=== PATIENT | male | born 1950 | race Caucasian/White ===

== ENCOUNTER → 2016-12-24 | Outpatient (CLI) | payer MEDICARE ==
[2016-12-24 11:17] LABS: ALT 121 U/L (21-72); AST 61 U/L (17-59); Alkaline Phosphatase 72 U/L (38-126); Anion Gap 12 mmol/L; Blood Urea Nitrogen 25 mg/dL (9-20); Calcium 10.3 mg/dL (8.4-10.2); Carbon Dioxide 24 mmol/L (22-30); Chloride 107 mmol/L (98-107); Cholesterol 216 mg/dL (<200); Glucose 197 mg/dL (74-99); HDL Cholesterol 37 mg/dL (40-60); Non-African American GFR(MDRD) >60 (>60 ml/min/1.73 sqM); Potassium 4.9 mmol/L (3.5-5.1); Sodium 143 mmol/L (137-145); Total Bilirubin 0.8 mg/dL (0.2-1.3); Total Protein 7.5 g/dL (6.3-8.2); Triglycerides 236 mg/dL (<150)
== END | disposition home or self-care (01) ==
LOC: LABWHC1 09:42
PROVIDERS: ATTEND Internal Medicine Interventional Cardiology
DX: E78.2 Mixed hyperlipidemia (principal)
CPT/HCPCS: 36415; 80053; 80061

== ENCOUNTER → 2017-09-09 | Outpatient (CLI) | payer MEDICARE ==
[2017-09-09 12:34] LABS: ALT 77 U/L (21-72); AST 51 U/L (17-59); Cholesterol 138 mg/dL (<200); HDL Cholesterol 46 mg/dL (40-60)
== END | disposition home or self-care (01) ==
LOC: LABWHC1 11:27
PROVIDERS: ATTEND Internal Medicine Interventional Cardiology
DX: E78.2 Mixed hyperlipidemia (principal)
CPT/HCPCS: 36415; 80061; 84450; 84460

== ENCOUNTER → 2018-04-28 | Outpatient (CLI) | payer MEDICARE ==
[2018-04-28 11:28] LABS: ALT 54 U/L (21-72); AST 30 U/L (17-59); Albumin 4.2 g/dL (3.5-5.0); Alkaline Phosphatase 54 U/L (38-126); Anion Gap 12 mmol/L; Blood Urea Nitrogen 28 mg/dL (9-20); Calcium 9.6 mg/dL (8.4-10.2); Carbon Dioxide 23 mmol/L (22-30); Chloride 106 mmol/L (98-107); Glucose 197 mg/dL (74-99); Sodium 141 mmol/L (137-145); Total Bilirubin 0.8 mg/dL (0.2-1.3); Total Protein 6.8 g/dL (6.3-8.2)
== END ==
LOC: LABWHC1 10:35
PROVIDERS: ATTEND Internal Medicine Endocrinology, Diabetes & Metabolism
DX: E11.65 Type 2 diabetes mellitus with hyperglycemia (principal)
CPT/HCPCS: 36415; 80053; 84681

== ENCOUNTER → 2018-06-04 | Outpatient (CLI) | payer MEDICARE ==
[2018-06-04 16:26] LABS: ALT 55 U/L (21-72); AST 30 U/L (17-59); Cholesterol 157 mg/dL (<200); Glucose 279 mg/dL (74-99); HDL Cholesterol 43 mg/dL (40-60); LDL Cholesterol,Calculated 89 mg/dL (0-99); Triglycerides 127 mg/dL (<150)
== END ==
LOC: LABWHC1 15:24
PROVIDERS: ATTEND Internal Medicine Endocrinology, Diabetes & Metabolism
DX: E78.2 Mixed hyperlipidemia (principal); E11.65 Type 2 diabetes mellitus with hyperglycemia
CPT/HCPCS: 36415; 80061; 82947; 84450; 84460; 84681

== ENCOUNTER → 2018-11-05 | Outpatient (CLI) | payer MEDICARE ==
[2018-11-06 04:18] LABS: LDL Cholesterol,Calculated 89.8 mg/dL (0.0-131.0); VLDL Calculation 22.2 mg/dL (5.00-40.00)
== END ==
LOC: LABWHC1 15:07
PROVIDERS: ATTEND Nurse Practitioner Adult Health
DX: E78.2 Mixed hyperlipidemia (principal)
CPT/HCPCS: 36415; 80061; 82550; 84450; 84460

== ENCOUNTER → 2019-03-10 | Outpatient (CLI) | payer MEDICARE ==
[2019-03-10 11:33] LABS: Basophils # (A) 0.1 k/uL (0-0.2); Basophils % (A) 1 %; Eosinophils # (A) 0.3 k/uL (0-0.7); Eosinophils % (A) 4 %; HCT 45.7 % (39.0-53.0); HGB 15.7 gm/dL (13.0-17.5); Lymphocytes # (A) 2.3 k/uL (1.0-4.8); Lymphocytes % (A) 26 %; MCH 31.1 pg (25.0-35.0); MCHC 34.3 g/dL (31.0-37.0); MCV 90.7 fL (80.0-100.0); Mean Platelet Volume 7.1; Monocytes # (A) 0.6 k/uL (0-1.0); Monocytes % (A) 7 %; Neutrophils # (A) 5.4 k/uL (1.3-7.7); Neutrophils % (A) 61 %; Platelet Count 186 k/uL (150-450); RBC 5.04 m/uL (4.30-5.90); RDW 12.7 % (11.5-15.5); WBC 8.9 k/uL (3.8-10.6)
[2019-03-10 11:41] LABS: Appearance,Urine Clear (Clear); Bilirubin,Urine Negative (Negative); Blood,Urine Negative (Negative); Color,Urine Yellow; Glucose,Urine (UA) 4+ (Negative); Hyaline Casts,Urine 1 /lpf (0-2); Ketones,Urine Negative (Negative); Leukocyte Esterase,Urine Trace (Negative); Mucus,Urine Few /hpf; Nitrite,Urine Negative (Negative); PH, Urine 5.5 (5.0-8.0); Protein,Urine 1+ (Negative); Specific Gravity,Urine 1.027 (1.001-1.035); Squamous Epithelial Cell,Urine <1 /hpf (0-4); WBC,Urine 2 /hpf (0-5)
[2019-03-10 16:38] LABS: Albumin 4.3 g/dL (3.80-4.90); Albumin/Globulin Ratio 1.95 (1.60-3.17); Anion Gap 9.6 mmol/L (4.00-12.00); Calcium 9.4 mg/dL (8.7-10.3); Carbon Dioxide 25.4 mmol/L (21.6-31.8); Globulin 2.2 g/dL (1.6-3.3); LDL Cholesterol,Calculated 86.2 mg/dL (0.0-131.0); Potassium 4.4 mmol/L (3.5-5.5); Total Bilirubin 0.8 mg/dL (0.3-1.2); Total Protein 6.5 g/dL (6.2-8.2); VLDL Calculation 23.8 mg/dL (5.00-40.00)
[2019-03-10 16:46] LABS: T4, Free (Free Thyroxine) 1.1 ng/dL (0.80-1.80)
[2019-03-10 18:47] LABS: Hemoglobin A1C 8.9 % (4.0-6.0)
== END | disposition home or self-care (01) ==
LOC: LABWHC1 10:34
PROVIDERS: ATTEND Internal Medicine Endocrinology, Diabetes & Metabolism
DX: Z00.00 Encounter for general adult medical examination without abnormal findings (principal); E11.65 Type 2 diabetes mellitus with hyperglycemia; I10 Essential (primary) hypertension; K21.9 Gastro-esophageal reflux disease without esophagitis; E78.00 Pure hypercholesterolemia, unspecified; E11.42 Type 2 diabetes mellitus with diabetic polyneuropathy; Z12.5 Encounter for screening for malignant neoplasm of prostate
CPT/HCPCS: 84439; 80061; 80053; 82533; 84443; 85025; 81001; 84681; 82043; 82570; 83036; 36415; G0103

== ENCOUNTER → 2019-07-13 | Outpatient (CLI) | payer MEDICARE ==
[2019-07-13 10:28] LABS: Basophils # (A) 0.1 k/uL (0-0.2); Basophils % (A) 1 %; Eosinophils # (A) 0.2 k/uL (0-0.7); Eosinophils % (A) 2 %; HCT 45.7 % (39.0-53.0); HGB 15.7 gm/dL (13.0-17.5); Lymphocytes # (A) 1.9 k/uL (1.0-4.8); Lymphocytes % (A) 23 %; MCH 30.8 pg (25.0-35.0); MCHC 34.4 g/dL (31.0-37.0); MCV 89.8 fL (80.0-100.0); Mean Platelet Volume 8.1; Monocytes # (A) 0.6 k/uL (0-1.0); Monocytes % (A) 8 %; Neutrophils # (A) 5.3 k/uL (1.3-7.7); Neutrophils % (A) 64 %; Platelet Count 168 k/uL (150-450); RBC 5.09 m/uL (4.30-5.90); RDW 13.1 % (11.5-15.5); WBC 8.3 k/uL (3.8-10.6)
[2019-07-13 18:39] LABS: African American GFR (CKD) 77.9 (60.0-200.0); Albumin 4.4 g/dL (3.80-4.90); Albumin/Globulin Ratio 2.1 (1.60-3.17); Anion Gap 10.5 mmol/L (4.00-12.00); BUN/Creat Ratio 23.64 Ratio (12.00-20.00); Calcium 10.2 mg/dL (8.7-10.3); Carbon Dioxide 26.5 mmol/L (21.6-31.8); Chol/HDL Ratio 3.57; Globulin 2.1 g/dL (1.6-3.3); Potassium 4.9 mmol/L (3.5-5.5); Total Bilirubin 0.8 mg/dL (0.2-1.2); Total Protein 6.5 g/dL (6.2-8.2)
== END | disposition home or self-care (01) ==
LOC: LAB 09:11
PROVIDERS: ATTEND Internal Medicine
DX: E78.5 Hyperlipidemia, unspecified (principal); E11.9 Type 2 diabetes mellitus without complications; Z12.5 Encounter for screening for malignant neoplasm of prostate; R94.8 Abnormal results of function studies of other organs and systems
CPT/HCPCS: 84439; 80061; 80053; 84443; 85025; 36415; G0103

== ENCOUNTER → 2019-10-07 | Outpatient (CLI) | payer MEDICARE | END | disposition home or self-care (01) | LOC: LABWHC1 10:24 | PROVIDERS: ATTEND Internal Medicine Endocrinology, Diabetes & Metabolism | DX: E11.65 Type 2 diabetes mellitus with hyperglycemia (principal) | CPT/HCPCS: 36415; 82947; 84681 ==

== ENCOUNTER → 2019-12-08 | Outpatient (CLI) | payer MEDICARE ==
[2019-12-08 16:18] LABS: Appearance,Urine Clear (Clear); Bilirubin,Urine Negative (Negative); Blood,Urine Negative (Negative); Color,Urine Yellow; Glucose,Urine (UA) 4+ (Negative); Ketones,Urine Negative (Negative); Leukocyte Esterase,Urine Negative (Negative); Nitrite,Urine Negative (Negative); PH, Urine 5.5 (5.0-8.0); Protein,Urine Negative (Negative); Specific Gravity,Urine 1.027 (1.001-1.035); Urobilinogen,Urine <2.0 mg/dL (<2.0)
[2019-12-09 01:12] LABS: African American GFR (CKD) 70.1 (60.0-200.0); Anion Gap 11.1 mmol/L (4.00-12.00); BUN/Creat Ratio 21.67 Ratio (12.00-20.00); Calcium 9.7 mg/dL (8.7-10.3); Carbon Dioxide 25.9 mmol/L (21.6-31.8); Non-African American GFR(CKD) 60.5 (60.0-200.0); Potassium 4.3 mmol/L (3.5-5.5)
== END | disposition home or self-care (01) ==
LOC: LABWHC1 15:26
PROVIDERS: ATTEND Internal Medicine
DX: M54.9 Dorsalgia, unspecified (principal); N13.30 Unspecified hydronephrosis
CPT/HCPCS: 36415; 80048; 81003

== ENCOUNTER → 2020-01-28 | Outpatient (CLI) | payer MEDICARE | END | disposition home or self-care (01) | LOC: LABWHC1 15:25 | PROVIDERS: ATTEND Internal Medicine Endocrinology, Diabetes & Metabolism | DX: E11.65 Type 2 diabetes mellitus with hyperglycemia (principal) | CPT/HCPCS: 36415; 82947; 84681 ==

== ENCOUNTER → 2020-05-13 | Outpatient (CLI) | payer MEDICARE ==
[2020-05-13 15:29] LABS: Chol/HDL Ratio 3.45; LDL Cholesterol,Calculated 65.4 mg/dL (0.0-131.0); VLDL Calculation 27.6 mg/dL (5.00-40.00)
== END | disposition home or self-care (01) ==
LOC: LABWHC1 08:52
PROVIDERS: ATTEND Nurse Practitioner Adult Health
DX: E78.2 Mixed hyperlipidemia (principal)
CPT/HCPCS: 36415; 80061; 84450; 84460

== ENCOUNTER 2020-10-24 10:37 | Emergency (ER) | payer MEDICARE ==
[2020-10-24 10:45] VITALS: RESP 18
--- NOTE | 2020-10-24 12:13 | ED ---
General Adult HPI - General Chief complaint: Shortness of Breath Stated complaint: +Covid, chills, leg pain Time Seen by Provider: 10/24/20 11:59 Source: patient, RN notes reviewed Mode of arrival: ambulatory Limitations: no limitations - History of Present Illness Initial comments: This is a 70-year-old male presents emergency Department with chief complaint of not feeling well. Patient states he started having symptoms last and tested positive for COVID on Saturday. Patient states that he was having some shortness breath but since he improved today. Patient states his gave him 3 prednisone tablet last night which seemed to help. Patient states she has some mild right calf pain, no nausea no significant GI symptoms otherwise. Patient's had body aches, chills and otherwise generalized not feeling well. Patient does have a history of hypertension hyperlipidemia diabetes - Related Data Home Medications Medication Instructions Recorded Confirmed Atorvastatin [Lipitor] 40 mg PO DAILY 07/02/18 07/02/18 Insulin Glargine,Hum.rec.anlog 30 unit SQ DAILY 07/02/18 07/02/18 [Lantus Solostar] Metoprolol Succinate (ER) [Toprol 25 mg PO DAILY 07/02/18 07/02/18 XL] Olmesartan Medoxomil [Benicar] 40 mg PO DAILY 07/02/18 07/02/18 metFORMIN HCL 1,000 mg PO DAILY 07/02/18 07/02/18 Previous Rx's Medication Instructions Recorded Dexamethasone 6 mg PO DAILY #4 tablet 10/24/20 Allergies Allergy/AdvReac Type Severity Reaction Status Date / Time No Known Allergies Allergy Verified 10/24/20 10:45 Review of Systems ROS Statement: Those systems with pertinent positive or pertinent negative responses have been documented in the HPI. ROS Other: All systems not noted in ROS Statement are negative. Past Medical History Past Medical History: Diabetes Mellitus, Hyperlipidemia, Hypertension History of Any Multi-Drug Resistant Organisms: None Reported Past Surgical History: Hernia Repair, Orthopedic Surgery Additional Past Surgical History / Comment(s): left shoulder Past Anesthesia/Blood Transfusion Reactions: Unable to Obtain Past Psychological History: No Psychological Hx Reported Smoking Status: Former smoker Past Alcohol Use History: Rare Past Drug Use History: None Reported General Exam Limitations: no limitations General appearance: alert, in no apparent distress Head exam: Present: atraumatic, normocephalic, normal inspection Eye exam: Present: normal appearance, PERRL, EOMI. Absent: scleral icterus, conjunctival injection, periorbital swelling ENT exam: Present: normal exam, normal oropharynx, mucous membranes moist Neck exam: Present: normal inspection. Absent: tenderness, meningismus, lymphadenopathy Respiratory exam: Present: normal lung sounds bilaterally. Absent: respiratory distress, wheezes, rales, rhonchi, stridor Cardiovascular Exam: Present: regular rate, normal rhythm, normal heart sounds. Absent: systolic murmur, diastolic murmur, rubs, gallop, clicks GI/Abdominal exam: Present: soft, normal bowel sounds. Absent: distended, tenderness, guarding, rebound, rigid Extremities exam: Present: other (Mild right Tenderness) Neurological exam: Present: alert, oriented X3, CN II-XII intact, reflexes normal. Absent: motor sensory deficit Skin exam: Present: warm, dry, intact, normal color. Absent: rash Course Vital Signs 10/24/20 10/24/20 10/24/20 10:40 11:44 12:23 Temperature 98.5 F Pulse Rate 67 63 Respiratory 18 18 18 Rate Blood Pressure 114/70 122/78 O2 Sat by Pulse 94 L 93 L Oximetry 10/24/20 12:24 Temperature Pulse Rate Respiratory 18 Rate Blood Pressure O2 Sat by Pulse 94 L Oximetry EKG Findings - EKG Comments: EKG Findings:: EKG performed at 12:02 normal sinus rhythm rate of 65 MD 142 QRS 98 QT/QTC 404/420 S1 q 3 T3 Medical Decision Making - Medical Decision Making 70-year-old presented for covid, chest x-ray does not reveal any significant changes. Patient labs her symptoms are unremarkable other than mild hyperglycemia patient has a known diabetic and which she did take steroids yesterday. Patient was given insulin correction. Patient does take short- acting and long-acting insulin at home. He states is very comfortable in managing his blood sugar patient be kept on steroids exudates as this showed some improvement for the patient. Ultrasound of the right leg was negative for acute DVT. Patient was given strict return parameters. Patient was able to ambulate to emergency department with no significant shortness of breath or hypoxia. - Lab Data Result diagrams: 10/24/20 12:08 10/24/20 12:08 Lab Results 10/24/20 10/24/20 10/24/20 Range/Units 12:08 12:08 12:08 WBC 4.0 (3.8-10.6) k/uL RBC 4.97 (4.30-5.90) m/uL Hgb 15.2 (13.0-17.5) gm/dL Hct 44.7 (39.0-53.0) % MCV 90.0 (80.0-100.0) fL MCH 30.6 (25.0-35.0) pg MCHC 34.0 (31.0-37.0) g/dL RDW 13.0 (11.5-15.5) % Plt Count 117 L (150-450) k/uL MPV 7.9 Neutrophils % 82 % Lymphocytes % 10 % Monocytes % 5 % Eosinophils % 0 % Basophils % 0 % Neutrophils # 3.3 (1.3-7.7) k/uL Lymphocytes # 0.4 L (1.0-4.8) k/uL Monocytes # 0.2 (0-1.0) k/uL Eosinophils # 0.0 (0-0.7) k/uL Basophils # 0.0 (0-0.2) k/uL PT 10.1 (9.0-12.0) sec INR 1.0 (<1.2) APTT 26.0 (22.0-30.0) sec D-Dimer 0.33 (<0.60) mg/L FEU Sodium 136 L (137-145) mmol/L Potassium 5.2 H (3.5-5.1) mmol/L Chloride 105 (98-107) mmol/L Carbon Dioxide 23 (22-30) mmol/L Anion Gap 8 mmol/L BUN 32 H (9-20) mg/dL Creatinine 1.06 (0.66-1.25) mg/dL Est GFR (CKD-EPI)AfAm 81 (>60 ml/min/1.73 sqM) Est GFR (CKD-EPI)NonAf 70 (>60 ml/min/1.73 sqM) Glucose 352 H (74-99) mg/dL Plasma Lactic Acid Kenneth (0.7-2.0) mmol/L Calcium 8.8 (8.4-10.2) mg/dL Magnesium 1.6 (1.6-2.3) mg/dL Total Bilirubin 0.8 (0.2-1.3) mg/dL AST 40 (17-59) U/L ALT 39 (4-49) U/L Alkaline Phosphatase 81 (38-126) U/L Lactate Dehydrogenase 527 (313-618) U/L C-Reactive Protein 17.5 H (<10.0) mg/L Total Protein 6.7 (6.3-8.2) g/dL Albumin 3.7 (3.5-5.0) g/dL 10/24/20 Range/Units 12:08 WBC (3.8-10.6) k/uL RBC (4.30-5.90) m/uL Hgb (13.0-17.5) gm/dL Hct (39.0-53.0) % MCV (80.0-100.0) fL MCH (25.0-35.0) pg MCHC (31.0-37.0) g/dL RDW (11.5-15.5) % Plt Count (150-450) k/uL MPV Neutrophils % % Lymphocytes % % Monocytes % % Eosinophils % % Basophils % % Neutrophils # (1.3-7.7) k/uL Lymphocytes # (1.0-4.8) k/uL Monocytes # (0-1.0) k/uL Eosinophils # (0-0.7) k/uL Basophils # (0-0.2) k/uL PT (9.0-12.0) sec INR (<1.2) APTT (22.0-30.0) sec D-Dimer (<0.60) mg/L FEU Sodium (137-145) mmol/L Potassium (3.5-5.1) mmol/L Chloride (98-107) mmol/L Carbon Dioxide (22-30) mmol/L Anion Gap mmol/L BUN (9-20) mg/dL Creatinine (0.66-1.25) mg/dL Est GFR (CKD-EPI)AfAm (>60 ml/min/1.73 sqM) Est GFR (CKD-EPI)NonAf (>60 ml/min/1.73 sqM) Glucose (74-99) mg/dL Plasma Lactic Acid Kenneth 1.4 (0.7-2.0) mmol/L Calcium (8.4-10.2) mg/dL Magnesium (1.6-2.3) mg/dL Total Bilirubin (0.2-1.3) mg/dL AST (17-59) U/L ALT (4-49) U/L Alkaline Phosphatase (38-126) U/L Lactate Dehydrogenase (313-618) U/L C-Reactive Protein (<10.0) mg/L Total Protein (6.3-8.2) g/dL Albumin (3.5-5.0) g/dL Disposition Clinical Impression: COVID-19, Hyperglycemia Disposition: HOME SELF-CARE Condition: Stable Instructions (If sedation given, give patient instructions): Upper Respiratory Infection (ED) Additional Instructions: Take [id number] vitamin C, vitamin D3, zinc. Please return to the Emergency Department if symptoms worsen or any other concerns. Prescriptions: Dexamethasone 6 mg PO DAILY #4 tablet Is patient prescribed a controlled substance at d/c from ED?: No Referrals: Elia Acosta MD [Primary Care Provider] - 1-2 days Time of Disposition: 13:34
[2020-10-24 12:21] LABS: Basophils % (A) 0 %; Eosinophils % (A) 0 %; HCT 44.7 % (39.0-53.0); HGB 15.2 gm/dL (13.0-17.5); Lymphocytes # (A) 0.4 k/uL (1.0-4.8); Lymphocytes % (A) 10 %; MCH 30.6 pg (25.0-35.0); Mean Platelet Volume 7.9; Monocytes # (A) 0.2 k/uL (0-1.0); Monocytes % (A) 5 %; Neutrophils # (A) 3.3 k/uL (1.3-7.7); Neutrophils % (A) 82 %; Platelet Count 117 k/uL (150-450); RBC 4.97 m/uL (4.30-5.90)
[2020-10-24 12:30] LABS: Albumin 3.7 g/dL (3.5-5.0); C Reactive Protein 17.5 mg/L (<10.0); Calcium 8.8 mg/dL (8.4-10.2); Magnesium 1.6 mg/dL (1.6-2.3); Potassium 5.2 mmol/L (3.5-5.1); Total Bilirubin 0.8 mg/dL (0.2-1.3); Total Protein 6.7 g/dL (6.3-8.2)
[2020-10-24] MEDS ORDERED: INSULIN ASPART (NovoLOG) 100 UNIT/ML VIAL SQ ONE (12:35)
--- NOTE | 2020-10-24 12:35 | XR ---
EXAMINATION TYPE: XR chest 2V DATE OF EXAM: 10/24/2020 COMPARISON: 03/09/2019 TECHNIQUE: PA and lateral views submitted. HISTORY: Shortness of breath FINDINGS: The lungs are clear and there is no pneumothorax, pleural effusion, or focal pneumonia. Coarsened i nterstitium. Heart size normal. Hypertrophic change of the spine. IMPRESSION: 1. Coarsened interstitium correlate for colitis or interstitial pneumonia, pneumonitis.
[2020-10-24 12:37] LABS: D-Dimer 0.33 mg/L FEU (<0.60); Prothrombin Time 10.1 sec (9.0-12.0)
--- NOTE | 2020-10-24 13:10 | US ---
EXAMINATION TYPE: US venous doppler duplex LE RT DATE OF EXAM: 10/24/2020 12:58 PM COMPARISON: NONE CLINICAL HISTORY: 70-year-old male Right leg pain x couple days SIDE PERFORMED: Right TECHNIQUE: The lower extremity deep venous system is examined utilizing real time linear array sonog yana with graded compression, doppler sonography and color-flow sonography. FINDINGS: VESSELS IMAGED: Common Femoral Vein Deep Femoral Vein Greater Saphenous Vein * Femoral Vein Popliteal Vein Small Saphenous Vein * Proximal Calf Veins (* superficial vessels) Right Leg: Appears negative for DVT IMPRESSION: No evidence for DVT within the right lower extremity imaged from the groin to the upper calf.
[2020-10-24 13:46] VITALS: BP 141/82; PULSE 65; TEMP 98
[2020-10-24 19:21] LABS: Ferritin 415.2 ng/mL (22.0-322.0)
== END 2020-10-24 13:41 | disposition home or self-care (01) ==
LOC: EC 10:37
DX: U07.1 COVID-19 (principal); E11.65 Type 2 diabetes mellitus with hyperglycemia; I10 Essential (primary) hypertension; E78.5 Hyperlipidemia, unspecified; Z79.899 Other long term (current) drug therapy; Z79.4 Long term (current) use of insulin; Z87.891 Personal history of nicotine dependence
CPT/HCPCS: 36415; 71046; 80053; 82728; 83605; 83615; 83735; 84145; 85025; 85379; 85610; 85730; 86140; 93005; 99285

== ENCOUNTER 2020-10-28 14:31 | Inpatient (IN) | payer MEDICARE ==
[2020-10-28 15:16] LABS: Basophils # (A) 0.1 k/uL (0-0.2); Basophils % (A) 1 %; Eosinophils % (A) 0 %; HCT 41.9 % (39.0-53.0); HGB 14.6 gm/dL (13.0-17.5); Lymphocytes # (A) 0.9 k/uL (1.0-4.8); Lymphocytes % (A) 7 %; MCH 30.8 pg (25.0-35.0); MCHC 34.7 g/dL (31.0-37.0); MCV 88.7 fL (80.0-100.0); Mean Platelet Volume 7.6; Monocytes # (A) 0.7 k/uL (0-1.0); Monocytes % (A) 5 %; Neutrophils # (A) 10.9 k/uL (1.3-7.7); Neutrophils % (A) 85 %; Platelet Count 156 k/uL (150-450); RBC 4.72 m/uL (4.30-5.90); RDW 12.3 % (11.5-15.5); WBC 12.8 k/uL (3.8-10.6)
[2020-10-28 15:25] LABS: ALT 26 U/L (4-49); AST 28 U/L (17-59); African American GFR (CKD) >90 (>60 ml/min/1.73 sqM); Albumin 3.6 g/dL (3.5-5.0); Alkaline Phosphatase 83 U/L (38-126); Anion Gap 8 mmol/L; Blood Urea Nitrogen 32 mg/dL (9-20); Calcium 9.2 mg/dL (8.4-10.2); Carbon Dioxide 23 mmol/L (22-30); Chloride 104 mmol/L (98-107); Glucose 225 mg/dL (74-99); Magnesium 1.6 mg/dL (1.6-2.3); Non-African American GFR(CKD) 87 (>60 ml/min/1.73 sqM); Potassium 4.7 mmol/L (3.5-5.1); Sodium 135 mmol/L (137-145); Total Bilirubin 0.8 mg/dL (0.2-1.3); Total Protein 6.8 g/dL (6.3-8.2)
[2020-10-28 15:29] LABS: Partial Thromboplastin Time 23.5 sec (22.0-30.0); Prothrombin Time 10.1 sec (9.0-12.0)
--- NOTE | 2020-10-28 15:48 | XR ---
EXAMINATION TYPE: XR chest 2V DATE OF EXAM: 10/28/2020 COMPARISON: 10/24/2020 HISTORY: 70-year-old male with chest pain and shortness of breath TECHNIQUE: PA and lateral views FINDINGS: Low lung volumes and cardiovascular vascular markings. Heart size is accentuated likely upper limits of normal. Mild elongation thoracic aorta. Patchy interstitial opacities are present throughout. No p leural effusion. IMPRESSION: Hypoventilatory changes. Patchy interstitial infiltrates. Correlate for possibilities such as atypica l pneumonias or interstitial pneumonitis.
--- NOTE | 2020-10-28 15:49 | ED ---
General Adult HPI - General Chief complaint: Chest Pain Stated complaint: Chest Pain/SOB Time Seen by Provider: 10/28/20 15:40 Source: patient Mode of arrival: wheelchair Limitations: no limitations - History of Present Illness Initial comments: Dictation was produced using [employer] dictation software. please excuse any grammatical, word or spelling errors. This patient was cared for during a federal and state declared state of emergency secondary to Covid 19 Chief Complaint: 70-year-old male with known chronic virus positive result presents today for chest pain. History of Present Illness: 70-year-old male who presents today with chest pain. Patient states he also has constitutional symptoms of shaking, tremors shortness of breath and dizziness. Patient presents to the emergency department mostly because pain. He localizes the pain to the substernal area.. No associated diaphoresis or nausea. The reading to the jaw or the shoulders. Several days ago patient has a positive coronavirus. Denies any nausea vomiting or diarrhea. He does have poor appetite. Denies any worsening symptoms with deep inspiration. Denies any history of coronary artery disease. He is a former smoker. The ROS documented in this emergency department record has been reviewed and confirmed by me. Those systems with pertinent positive or negative responses have been documented in the HPI. All other systems are other negative and/or noncontributory. PHYSICAL EXAM: General Impression: Alert and oriented x3, not in acute distress HEENT: Normocephalic atraumatic, extra-ocular movements intact, pupils equal and reactive to light bilaterally, mucous membranes moist. Cardiovascular: Heart regular rate and rhythm Chest: Able to complete full sentences, no retractions, no tachypnea Abdomen: abdomen soft, non-tender, non-distended, no organomegaly Musculoskeletal: Pulses present and equal in all extremities, no peripheral edema Motor: no focal deficits noted Neurological: CN II-XII grossly intact, no focal motor or sensory deficits noted Skin: Intact with no visualized rashes Psych: Normal affect and mood ED course: 70-year-old male presents today with atypical chest pain typical features. Patient's symptoms likely secondary to Covid 19. Vital signs upon arrival shows tach percent on room air, worse vital signs within acceptable limits. EKG shows no signs of ischemia or infarction. Chart review was performed. Patient was seen here in emergency department 4 days ago Lavatory evaluation obtained. Mild occipital still 0.8. Coag panel is unremarkable. Metabolic panel is within acceptable limits troponin is negative. Chest x-ray continues to demonstrate patchy interstitial infiltrates. Patient and dilated at the bedside and became hypoxic into the mid to low 80%. Patient placed on supplemental oxygen. Patient given Decadron and azithromycin. Patient be admitted to the hospital. Case discussed with on-call [facility] physician Dr. Kumar who is willing to accept patients care. Pulmonology was consulted. - Related Data Home Medications Medication Instructions Recorded Confirmed Atorvastatin [Lipitor] 40 mg PO DAILY 07/02/18 07/02/18 Insulin Glargine,Hum.rec.anlog 30 unit SQ DAILY 07/02/18 07/02/18 [Lantus Solostar] Metoprolol Succinate (ER) [Toprol 25 mg PO DAILY 07/02/18 07/02/18 XL] Olmesartan Medoxomil [Benicar] 40 mg PO DAILY 07/02/18 07/02/18 metFORMIN HCL 1,000 mg PO DAILY 07/02/18 07/02/18 Previous Rx's Medication Instructions Recorded Dexamethasone 6 mg PO DAILY #4 tablet 10/24/20 Allergies Allergy/AdvReac Type Severity Reaction Status Date / Time No Known Allergies Allergy Verified 10/28/20 14:45 Review of Systems ROS Statement: Those systems with pertinent positive or pertinent negative responses have been documented in the HPI. ROS Other: All systems not noted in ROS Statement are negative. Past Medical History Past Medical History: Diabetes Mellitus, Hyperlipidemia, Hypertension History of Any Multi-Drug Resistant Organisms: None Reported Past Surgical History: Hernia Repair, Orthopedic Surgery Additional Past Surgical History / Comment(s): left shoulder Past Anesthesia/Blood Transfusion Reactions: Unable to Obtain Past Psychological History: No Psychological Hx Reported Smoking Status: Former smoker Past Alcohol Use History: Rare Past Drug Use History: None Reported General Exam Limitations: no limitations Course Vital Signs 10/28/20 14:42 Temperature 99.5 F Pulse Rate 62 Respiratory 20 Rate Blood Pressure 147/85 O2 Sat by Pulse 92 L Oximetry Medical Decision Making - Lab Data Result diagrams: 10/28/20 15:06 10/28/20 15:06 Lab Results 10/28/20 10/28/20 10/28/20 Range/Units 15:06 15:06 15:06 WBC 12.8 H (3.8-10.6) k/uL RBC 4.72 (4.30-5.90) m/uL Hgb 14.6 (13.0-17.5) gm/dL Hct 41.9 (39.0-53.0) % MCV 88.7 (80.0-100.0) fL MCH 30.8 (25.0-35.0) pg MCHC 34.7 (31.0-37.0) g/dL RDW 12.3 (11.5-15.5) % Plt Count 156 (150-450) k/uL MPV 7.6 Neutrophils % 85 % Lymphocytes % 7 % Monocytes % 5 % Eosinophils % 0 % Basophils % 1 % Neutrophils # 10.9 H (1.3-7.7) k/uL Lymphocytes # 0.9 L (1.0-4.8) k/uL Monocytes # 0.7 (0-1.0) k/uL Eosinophils # 0.0 (0-0.7) k/uL Basophils # 0.1 (0-0.2) k/uL PT 10.1 (9.0-12.0) sec INR 1.0 (<1.2) APTT 23.5 (22.0-30.0) sec Sodium 135 L (137-145) mmol/L Potassium 4.7 (3.5-5.1) mmol/L Chloride 104 (98-107) mmol/L Carbon Dioxide 23 (22-30) mmol/L Anion Gap 8 mmol/L BUN 32 H (9-20) mg/dL Creatinine 0.86 (0.66-1.25) mg/dL Est GFR (CKD-EPI)AfAm >90 (>60 ml/min/1.73 sqM) Est GFR (CKD-EPI)NonAf 87 (>60 ml/min/1.73 sqM) Glucose 225 H (74-99) mg/dL Calcium 9.2 (8.4-10.2) mg/dL Magnesium 1.6 (1.6-2.3) mg/dL Total Bilirubin 0.8 (0.2-1.3) mg/dL AST 28 (17-59) U/L ALT 26 (4-49) U/L Alkaline Phosphatase 83 (38-126) U/L Troponin I (0.000-0.034) ng/mL Total Protein 6.8 (6.3-8.2) g/dL Albumin 3.6 (3.5-5.0) g/dL 10/28/20 Range/Units 15:06 WBC (3.8-10.6) k/uL RBC (4.30-5.90) m/uL Hgb (13.0-17.5) gm/dL Hct (39.0-53.0) % MCV (80.0-100.0) fL MCH (25.0-35.0) pg MCHC (31.0-37.0) g/dL RDW (11.5-15.5) % Plt Count (150-450) k/uL MPV Neutrophils % % Lymphocytes % % Monocytes % % Eosinophils % % Basophils % % Neutrophils # (1.3-7.7) k/uL Lymphocytes # (1.0-4.8) k/uL Monocytes # (0-1.0) k/uL Eosinophils # (0-0.7) k/uL Basophils # (0-0.2) k/uL PT (9.0-12.0) sec INR (<1.2) APTT (22.0-30.0) sec Sodium (137-145) mmol/L Potassium (3.5-5.1) mmol/L Chloride (98-107) mmol/L Carbon Dioxide (22-30) mmol/L Anion Gap mmol/L BUN (9-20) mg/dL Creatinine (0.66-1.25) mg/dL Est GFR (CKD-EPI)AfAm (>60 ml/min/1.73 sqM) Est GFR (CKD-EPI)NonAf (>60 ml/min/1.73 sqM) Glucose (74-99) mg/dL Calcium (8.4-10.2) mg/dL Magnesium (1.6-2.3) mg/dL Total Bilirubin (0.2-1.3) mg/dL AST (17-59) U/L ALT (4-49) U/L Alkaline Phosphatase (38-126) U/L Troponin I <0.012 (0.000-0.034) ng/mL Total Protein (6.3-8.2) g/dL Albumin (3.5-5.0) g/dL Disposition Clinical Impression: Acute respiratory failure with hypoxia, COVID-19 Disposition: ADMITTED IP TO THIS [facility] Condition: Fair Referrals: Elia Acosta MD [Primary Care Provider] - 1-2 days Decision Time: 16:42
[2020-10-28] MEDS ORDERED: DEXAMETHASONE SOD PHOSPHATE 10 MG/ML 1 ML VIAL IV STA (16:32)
[2020-10-28] MEDS ORDERED: ACETAMINOPHEN TAB 325 MG TAB PO PRN (16:33)
[2020-10-28] MEDS ORDERED: HYDROcodone/APAP 5-325MG 1 EACH TAB PO PRN (16:33)
[2020-10-28] MEDS ORDERED: bisacodyL 5 MG TABLET.DR PO PRN (16:33)
[2020-10-28] MEDS ORDERED: NALOXONE 0.4 MG/ML 1 ML VIAL IV PRN ×2 (16:33)
[2020-10-28] MEDS ORDERED: DOCUSATE 100 MG CAP PO PRN (16:33)
[2020-10-28] MEDS ORDERED: ENOXAPARIN 40 MG/0.4 ML SYRINGE SQ ONE (17:45)
[2020-10-28] MEDS ORDERED: FAMOTIDINE 20 MG TAB PO ONE (17:45)
--- NOTE | 2020-10-28 17:49 | CT ---
EXAMINATION TYPE: CT chest angio for PE DATE OF EXAM: 10/28/2020 COMPARISON: None HISTORY: Chest pain with cough and shortness of breath CT DLP: 543.2 mGycm Automated exposure control for dose reduction was used. CONTRAST: Performed with IV Contrast, patient injected with 100 mL of Isovue 370. There are 3-D post processed images. There is patchy bilateral pulmonary interstitial peripheral infiltrates. There is some patchy atelect asis at the lung bases. Heart is slightly enlarged. There is no pericardial effusion. There is no ple ural effusion. There is mild pleural thickening right lung base. There is no mediastinal adenopathy. There are no hilar masses. There is normal contrast opacification of the pulmonary arteries. There are no filling defects. Thoracic aorta is intact. There is mild 4.0 aneurysm of the ascending aorta. There is no dissection. Thoracic spine is intact. There is no compression fracture. IMPRESSION: Bilateral patchy pneumonia. No evidence of pulmonary embolism. Mild 4 cm aneurysm ascending aorta.
--- NOTE | 2020-10-28 18:06 | P.HPIM ---
History of Present Illness H&P Date: 10/28/20 Chief Complaint: dyspnea, chest pain 70 year old man with history of HTN/HLD/DM presented with chills, myalgias, chest pain, weakness. Patient tells me that about 1.5 weeks ago, he developed symptoms of weakness, which progressed to chills and myalgias. He and his tested last saturday, 10/22, and he was found to be positive, while she was negative. He was sent home to self-quarantine. During the week, he has had loss of appetite, but has not lost taste/smell. He then started to develop shortness of breath and chest pain on inspiration in the last 1-2 days. His chest pain is worse with inspiration and is described as a heaviness in his chest. ROS is positive as written in HPI, otherwise negative for: fevers, palpitations, syncope, anosmia, AL[place]A, abdominal pain, nausea, vomiting, diarrhea, constipation, dysuria, dyschezia, numbness/weakness of extremities. Review of Systems All Systems reviewed and pertinent positives and negatives noted in HPI, all other symptoms are negative Past Medical History Past Medical History: Diabetes Mellitus, Hyperlipidemia, Hypertension History of Any Multi-Drug Resistant Organisms: None Reported Past Surgical History: Hernia Repair, Orthopedic Surgery Additional Past Surgical History / Comment(s): left shoulder Past Anesthesia/Blood Transfusion Reactions: Unable to Obtain Past Psychological History: No Psychological Hx Reported Smoking Status: Former smoker Past Alcohol Use History: Rare Past Drug Use History: None Reported Medications and Allergies Home Medications Medication Instructions Recorded Confirmed Type Atorvastatin [Lipitor] 40 mg PO DAILY 07/02/18 07/02/18 History Insulin Glargine,Hum.rec.anlog 30 unit SQ DAILY 07/02/18 07/02/18 History [Lantus Solostar] Metoprolol Succinate (ER) [Toprol 25 mg PO DAILY 07/02/18 07/02/18 History XL] Olmesartan Medoxomil [Benicar] 40 mg PO DAILY 07/02/18 07/02/18 History metFORMIN HCL 1,000 mg PO DAILY 07/02/18 07/02/18 History Dexamethasone 6 mg PO DAILY #4 tablet 10/24/20 Rx Allergies Allergy/AdvReac Type Severity Reaction Status Date / Time No Known Allergies Allergy Verified 10/28/20 17:19 Physical Exam Osteopathic Statement: *. No significant issues noted on an osteopathic structural exam other than those noted in the History and Physical/Consult. Vitals: Vital Signs Temp Pulse Resp BP Pulse Ox 10/28/20 17:01 88 L 10/28/20 14:42 99.5 F 62 20 147/85 92 L Intake and Output 10/28/20 10/28/20 10/28/20 06:59 14:59 22:59 Other: Weight 90.718 kg Gen: awake, alert HEENT: normocephalic, atraumatic, good hearing acuity, moist mucous membranes Resp: good air exchange, breathing comfortably with no accessory muscle use CVS: good distal perfusion x 4, no JVD GI: soft, NTTP, ND : no SPT, no CVAT, murray catheter not present MSK: no pitting edema, no clubbing Neuro: non-focal, moving all extremities Psych: cooperative, euthymic mood Results CBC & Chem 7: 10/28/20 15:06 10/28/20 15:06 Labs: Abnormal Lab Results - Last 24 Hours (Table) 10/28/20 10/28/20 Range/Units 15:06 15:06 WBC 12.8 H (3.8-10.6) k/uL Neutrophils # 10.9 H (1.3-7.7) k/uL Lymphocytes # 0.9 L (1.0-4.8) k/uL Sodium 135 L (137-145) mmol/L BUN 32 H (9-20) mg/dL Glucose 225 H (74-99) mg/dL Assessment and Plan Assessment: 1. Acute Hypoxemic Respiratory Failure 2. COVID-19 Pneumonia 3. ARDS secondary to #2 4. Hypertension, essential 5. Hyperlipidemia 6. Diabetes type II 70 year old man with HTN/HLD/DM with known COVID+ status since 10/22 presented with increasing chest pain, dyspnea and was found to be in hypoxemic respiratory failure secondary to COVID with evidence of ARDS on CXR/CT Chest, but no evidence of pulmonary embolism. Plan: - admit to telemetry, contact, airborne - pulmonary consulted for remdesivir, plasma - started dexamethasone 6mg PO daily - Vit C/D, Zn, Famotidine - enoxaparin 40mg SQ daily for VTE PPx - oxygen PRN - daily inflammatory markers: CRP, D-Dimer, Ferritin, LDH, Procalcitonin - CBC, CMP daily - continue home BP, cholesterol meds - accuchecks ACHS + low dose SSI AC-TID Full Code is DPOA
[2020-10-28] MEDS: INSULIN ASPART (NovoLOG) 100 UNIT/ML VIAL SQ SCH ×2 (19:06→19:53)
[2020-10-28 19:32] LABS: Glucose,Whole Blood 320 mg/dL (75-99)
[2020-10-28 22:59] LABS: Glucose,Whole Blood 423 mg/dL (75-99)
[2020-10-28] MEDS ORDERED: INSULIN ASPART (NovoLOG) 100 UNIT/ML VIAL SQ ONE (23:13)
[2020-10-29 06:57] LABS: Glucose,Whole Blood 343 mg/dL (75-99)
[2020-10-29 08:09] LABS: Basophils # (A) 0.1 k/uL (0-0.2); Basophils % (A) 1 %; Eosinophils % (A) 0 %; HCT 41.9 % (39.0-53.0); HGB 14.5 gm/dL (13.0-17.5); Lymphocytes # (A) 0.8 k/uL (1.0-4.8); Lymphocytes % (A) 9 %; MCH 31.5 pg (25.0-35.0); MCHC 34.6 g/dL (31.0-37.0); MCV 91.2 fL (80.0-100.0); Mean Platelet Volume 7.5; Monocytes # (A) 0.5 k/uL (0-1.0); Monocytes % (A) 5 %; Neutrophils # (A) 7.9 k/uL (1.3-7.7); Neutrophils % (A) 84 %; Platelet Count 136 k/uL (150-450); RBC 4.59 m/uL (4.30-5.90); RDW 12.2 % (11.5-15.5); WBC 9.5 k/uL (3.8-10.6)
[2020-10-29] MEDS: FAMOTIDINE 20 MG TAB PO SCH (08:14)
[2020-10-29] MEDS: INSULIN ASPART (NovoLOG) 100 UNIT/ML VIAL SQ SCH ×3 (08:14→17:35)
[2020-10-29] MEDS: ENOXAPARIN 40 MG/0.4 ML SYRINGE SQ SCH (08:14)
[2020-10-29] MEDS: dexAMETHasone 2 MG TAB PO SCH (08:14)
[2020-10-29] MEDS ORDERED: INSULIN DETEMIR (LEVEMIR) 100 UNIT/ML SYR SQ STA (08:38)
[2020-10-29 11:27] LABS: Glucose,Whole Blood 336 mg/dL (75-99)
--- NOTE | 2020-10-29 11:52 | P.PN ---
Subjective Progress Note Date: 10/29/20 Pt does not have any complaints today, and denies shortness of breath. Pt was seen after having had his oxygen off for > 5 minutes while he ambulated himself to the bathroom and plugged in his phone. O2 saturation was 88%. Objective - Vital Signs Vital signs: Vital Signs Temp 97.5 F L 10/29/20 10:00 Pulse 50 L 10/29/20 10:00 Resp 16 10/29/20 10:00 BP 146/85 10/29/20 10:00 Pulse Ox 95 10/29/20 10:00 Intake & Output 10/28/20 10/29/20 10/29/20 18:59 06:59 18:59 Weight 90.718 kg 90.718 kg - Exam Gen: awake, alert HEENT: normocephalic, atraumatic, good hearing acuity, moist mucous membranes Resp: good air exchange, breathing comfortably with no accessory muscle use CVS: good distal perfusion x 4, no JVD GI: soft, NTTP, ND : no SPT, no CVAT, murray catheter not present MSK: no pitting edema, no clubbing Neuro: non-focal, moving all extremities Psych: cooperative, euthymic mood - Labs CBC & Chem 7: 10/29/20 07:39 10/28/20 15:06 Labs: Abnormal Lab Results - Last 24 Hours (Table) 10/28/20 10/28/20 10/28/20 Range/Units 15:06 15:06 19:30 WBC 12.8 H (3.8-10.6) k/uL Plt Count (150-450) k/uL Neutrophils # 10.9 H (1.3-7.7) k/uL Lymphocytes # 0.9 L (1.0-4.8) k/uL Sodium 135 L (137-145) mmol/L BUN 32 H (9-20) mg/dL Glucose 225 H (74-99) mg/dL POC Glucose (mg/dL) 320 H (75-99) mg/dL 10/28/20 10/29/20 10/29/20 Range/Units 22:58 06:55 07:39 WBC (3.8-10.6) k/uL Plt Count 136 L (150-450) k/uL Neutrophils # 7.9 H (1.3-7.7) k/uL Lymphocytes # 0.8 L (1.0-4.8) k/uL Sodium (137-145) mmol/L BUN (9-20) mg/dL Glucose (74-99) mg/dL POC Glucose (mg/dL) 423 H 343 H (75-99) mg/dL 10/29/20 Range/Units 11:25 WBC (3.8-10.6) k/uL Plt Count (150-450) k/uL Neutrophils # (1.3-7.7) k/uL Lymphocytes # (1.0-4.8) k/uL Sodium (137-145) mmol/L BUN (9-20) mg/dL Glucose (74-99) mg/dL POC Glucose (mg/dL) 336 H (75-99) mg/dL Assessment and Plan Assessment: 1. Acute Hypoxemic Respiratory Failure 2. COVID-19 Pneumonia 3. ARDS secondary to #2 4. Hypertension, essential 5. Hyperlipidemia 6. Diabetes type II 70 year old man with HTN/HLD/DM with known COVID+ status since 10/22 presented with increasing chest pain, dyspnea and was found to be in hypoxemic respiratory failure secondary to COVID with evidence of ARDS on CXR/CT Chest, but no evidence of pulmonary embolism. Plan: - admit to telemetry, contact, airborne - pulmonary consulted for remdesivir, plasma - started dexamethasone 6mg PO daily - Vit C/D, Zn, Famotidine - enoxaparin 40mg SQ daily for VTE PPx - oxygen PRN - daily inflammatory markers: CRP, D-Dimer, Ferritin, LDH, Procalcitonin - CBC, CMP daily - continue home BP, cholesterol meds - accuchecks ACHS + low dose SSI AC-TID + levemir 10mg qHS (while on decadron) Full Code is DPOA
--- NOTE | 2020-10-29 12:19 | P.CNPUL ---
History of Present Illness Consult date: 10/29/20 Reason for consult: dyspnea History of present illness: 71-year-old male patient known history of diabetes hypertension hyperlipidemia started getting sick approximately 11-12 days ago. His was checked positive for COVID infection. The patient was checked approximately a week ago and [facility] and the test was positive. He was feeling okay and over the past few days he did develop some shortness of breath and cough and heavin ess in his chest. He came into the hospital and a computed tomography scan of the chest was done that showed bilateral patchy pulmonary infiltrates consistent with coronavirus COVID 19 infection/pneumonia.. No nausea. No vomiting. No diarrhea. No abdominal pain. No change in his sense of taste or smell. No fever. No chills. No other complaints otherwise. He felt that he feels great phase of the liters about 3 by nasal cannula. The d-dimer is at 0.45. Review of Systems Constitutional: Reports fatigue, Reports weakness Eyes: denies as per HPI, denies blurred vision, denies bulging eye, denies decreased vision, denies diplopia, denies discharge, denies dry eye, denies irritation, denies itching, denies pain, denies photophobia, denies loss of peripheral vision, denies loss of vision, denies tunnel vision/blind spots Ears: deny: decreased hearing, ear discharge, earache, tinnitus Ears, nose, mouth and throat: Reports as per HPI Breasts: absent: as per HPI, gynecomastia Cardiovascular: Reports as per HPI, Reports dyspnea on exertion Respiratory: Reports cough, Reports dyspnea Genitourinary: Reports as per HPI Musculoskeletal: Reports as per HPI Musculoskeletal: absent: ankle pain, ankle stiffness, ankle swelling Integumentary: Reports as per HPI Neurological: Reports as per HPI Psychiatric: Reports as per HPI Endocrine: Reports as per HPI Hematologic/Lymphatic: Reports as per HPI Allergic/Immunologic: Reports as per HPI Past Medical History Past Medical History: Diabetes Mellitus, Hyperlipidemia, Hypertension History of Any Multi-Drug Resistant Organisms: None Reported Past Surgical History: Hernia Repair, Orthopedic Surgery Additional Past Surgical History / Comment(s): left shoulder Past Anesthesia/Blood Transfusion Reactions: Unable to Obtain Past Psychological History: No Psychological Hx Reported Smoking Status: Former smoker Past Alcohol Use History: Rare Past Drug Use History: None Reported Medications and Allergies Home Medications Medication Instructions Recorded Confirmed Type Metoprolol Succinate (ER) [Toprol 25 mg PO DAILY 07/02/18 10/28/20 History XL] Olmesartan Medoxomil [Benicar] 40 mg PO DAILY 07/02/18 10/28/20 History metFORMIN HCL 1,000 mg PO BID 07/02/18 10/28/20 History Atorvastatin [Lipitor] 20 mg PO DAILY 10/28/20 10/28/20 History Gabapentin [Neurontin] 300 mg PO BID PRN 10/28/20 10/28/20 History INSULIN LISPRO (For Pump) [humaLOG 0.01 units SQ-PUMP CONTINUOUS 10/28/20 10/28/20 History (For Pump)] Losartan Potassium 100 mg PO DAILY 10/28/20 10/28/20 History Tylenol (Unknown Strength) 3 tab PO ONETIME PRN 10/28/20 10/28/20 History Allergies Allergy/AdvReac Type Severity Reaction Status Date / Time No Known Allergies Allergy Verified 10/28/20 17:19 Physical Exam Vitals: Vital Signs Temp Pulse Pulse Resp BP BP Pulse Ox 10/29/20 10:00 97.5 F L 50 L 16 146/85 95 10/29/20 05:15 97.6 F 46 L 18 159/83 97 10/29/20 02:40 98.1 F 46 L 20 127/70 91 L 10/28/20 22:55 97.9 F 54 L 20 108/59 91 L 10/28/20 21:08 67 16 116/67 93 L 10/28/20 17:01 88 L 10/28/20 14:42 99.5 F 62 20 147/85 92 L Intake and Output 10/28/20 10/29/20 10/29/20 22:59 06:59 14:59 Other: Weight 90.718 kg The patient appeared well nourished and normally developed. Vital signs as documented. Head exam is unremarkable. No scleral icterus or corneal arcus noted. Neck is without jugular venous distension, thyromegaly, or carotid bru its. Carotid upstrokes are brisk bilaterally. Lungs reveal Limited crackles in the lung bases bilaterally. Cardiac exam reveals the PMI to be normally sized and situated. Rhythm is regular. First and second heart sounds normal. No murmurs, rubs or gallops. Abdominal exam reveals normal bowel sounds, no masses, no organomegaly and no aortic enlargement. Extremities are nonedematous and both femoral and pedal pulses are normal.Examination of the skin revealed no evidence of significant rashes, suspicious appearing nevi or other concerning lesions.Neurologically, the patient is awake and alert and the patient does not have any focal neurological deficit. Cranial nerves are essentially intact. Results - Laboratory Findings CBC and BMP: 10/29/20 07:39 10/28/20 15:06 PT/INR, D-dimer PT 10.1 sec (9.0-12.0) 10/28/20 15:06 INR 1.0 (<1.2) 10/28/20 15:06 D-Dimer 0.45 mg/L FEU (<0.60) 10/29/20 07:39 Abnormal lab findings: Abnormal Labs 10/28/20 10/28/20 10/28/20 15:06 15:06 19:30 WBC 12.8 H Plt Count Neutrophils # 10.9 H Lymphocytes # 0.9 L Sodium 135 L BUN 32 H Glucose 225 H POC Glucose (mg/dL) 320 H 10/28/20 10/29/20 10/29/20 22:58 06:55 07:39 WBC Plt Count 136 L Neutrophils # 7.9 H Lymphocytes # 0.8 L Sodium BUN Glucose POC Glucose (mg/dL) 423 H 343 H 10/29/20 11:25 WBC Plt Count Neutrophils # Lymphocytes # Sodium BUN Glucose POC Glucose (mg/dL) 336 H - Diagnostic Findings Chest x-ray: image reviewed CT scan - chest: image reviewed Assessment and Plan Plan: 1 acute bilateral COVID 19 related pneumonia 2 acute hypoxic respiratory failure secondary to above 3 diabetes mellitus with a component of steroid-induced hyperglycemia 4 hypertension 5 hyperlipidemia Plan The patient will be kept on Decadron 6 mg by mouth daily Monitor blood sugar and he is currently off his pump and the patient was given Levemir and his scale coverage and medicine is monitoring and treating his blood sugars He is outside the window for Remdesivir Continue vitamin C/D in addition to zinc and Pepcid Lovenox for the prophylaxis 40 mg subcu daily
[2020-10-29 12:53] LABS: African American GFR (CKD) 86.8 (60.0-200.0); Anion Gap 9.3 mmol/L (4.00-12.00); Calcium 8.6 mg/dL (8.7-10.3); Carbon Dioxide 22.7 mmol/L (21.6-31.8); Magnesium 1.8 mg/dL (1.5-2.4); Non-African American GFR(CKD) 74.9 (60.0-200.0); Potassium 4.5 mmol/L (3.5-5.5)
[2020-10-29 13:49] LABS: Ferritin 582.5 ng/mL (22.0-322.0)
[2020-10-29 14:22] LABS: C Reactive Protein 3.7 mg/dL (0.0-0.8)
[2020-10-29 17:10] LABS: Glucose,Whole Blood 395 mg/dL (75-99)
[2020-10-29] MEDS ORDERED: GABAPENTIN 300 MG CAP PO PRN (19:33)
[2020-10-29] MEDS: METOPROLOL SUCCINATE (ER) 25 MG TAB.ER.24H PO SCH (20:04)
[2020-10-29] MEDS: LOSARTAN 50 MG TAB PO SCH (20:04)
[2020-10-29 20:43] LABS: Glucose,Whole Blood 318 mg/dL (75-99)
[2020-10-29] MEDS ORDERED: INSULIN DETEMIR (LEVEMIR) 100 UNIT/ML SYR SQ SCH (21:00)
[2020-10-30 06:19] LABS: Basophils # (A) 0.1 k/uL (0-0.2); Basophils % (A) 1 %; Eosinophils # (A) 0.1 k/uL (0-0.7); Eosinophils % (A) 1 %; HCT 42.4 % (39.0-53.0); HGB 14.5 gm/dL (13.0-17.5); Lymphocytes # (A) 0.9 k/uL (1.0-4.8); Lymphocytes % (A) 9 %; MCH 30.5 pg (25.0-35.0); MCHC 34.1 g/dL (31.0-37.0); MCV 89.4 fL (80.0-100.0); Monocytes # (A) 0.6 k/uL (0-1.0); Monocytes % (A) 7 %; Neutrophils % (A) 82 %; Platelet Count 156 k/uL (150-450); RBC 4.75 m/uL (4.30-5.90); RDW 12.1 % (11.5-15.5); WBC 9.8 k/uL (3.8-10.6)
[2020-10-30 07:07] LABS: Glucose,Whole Blood 242 mg/dL (75-99)
[2020-10-30] MEDS: METOPROLOL SUCCINATE (ER) 25 MG TAB.ER.24H PO SCH (07:42)
[2020-10-30] MEDS: ENOXAPARIN 40 MG/0.4 ML SYRINGE SQ SCH (07:43)
[2020-10-30] MEDS: ATORVASTATIN 20 MG TAB PO SCH (07:43)
[2020-10-30] MEDS: LOSARTAN 50 MG TAB PO SCH (07:43)
[2020-10-30] MEDS: dexAMETHasone 2 MG TAB PO SCH (07:44)
[2020-10-30] MEDS: FAMOTIDINE 20 MG TAB PO SCH (07:44)
[2020-10-30] MEDS: INSULIN ASPART (NovoLOG) 100 UNIT/ML VIAL SQ SCH ×3 (07:44→17:50)
[2020-10-30] MEDS ORDERED: INSULIN DETEMIR (LEVEMIR) 100 UNIT/ML SYR SQ STA (07:51)
[2020-10-30 10:07] LABS: African American GFR (CKD) 86.8 (60.0-200.0); Anion Gap 8.3 mmol/L (4.00-12.00); C Reactive Protein 2.2 mg/dL (0.0-0.8); Carbon Dioxide 23.7 mmol/L (21.6-31.8); Magnesium 1.8 mg/dL (1.5-2.4); Non-African American GFR(CKD) 74.9 (60.0-200.0); Potassium 4.7 mmol/L (3.5-5.5)
[2020-10-30 11:59] LABS: Glucose,Whole Blood 312 mg/dL (75-99)
--- NOTE | 2020-10-30 12:04 | P.PN ---
Subjective Progress Note Date: 10/30/20 71-year-old male patient known history of diabetes hypertension hyperlipidemia started getting sick approximately 11-12 days ago. His was checked positive for COVID infection. The patient was checked approximately a week ago and [facility] and the test was positive. He was feeling okay and over the past few days he did develop some shortness of breath and cough and heaviness in his chest. He came into the hospital and a computed tomography scan of the chest was done that showed bilateral patchy pulmonary infiltrates consistent with coronavirus COVID 19 infection/pneumonia.. No nausea. No vomiting. No diarrhea. No abdominal pain. No change in his sense of taste or smell. No fever. No chills. No other complaints otherwise. He felt that he feels great phase of the liters about 3 by nasal cannula. The d-dimer is at 0.45. On 10/30/2020, the patient has no specific complaints. He is feeling well. He is on 3 L about 2 by nasal cannula. His pulse ox is around 94%. He is on oral Decadron. No new complaints otherwise. Now. He is feeling well. No nausea. No vomiting. No diarrhea. No abdominal pain. No chest pain and altered mentation. Objective - Vital Signs Vital signs: Vital Signs Temp 97.5 F L 10/30/20 10:00 Pulse 40 L 10/30/20 10:00 Resp 16 10/30/20 10:00 BP 161/86 10/30/20 10:00 Pulse Ox 94 L 10/30/20 10:00 Intake & Output 10/29/20 10/30/20 10/30/20 18:59 06:59 18:59 Intake Total 200 200 Balance 200 200 Intake: Oral 200 200 Other: Voiding Method Toilet # Voids 3 2 - Exam The patient appeared well nourished and normally developed. Vital signs as documented. Head exam is unremarkable. No scleral icterus or corneal arcus noted. Neck is without jugular venous distension, thyromegaly, or carotid bruits. Carotid upstrokes are brisk bilaterally. Lungs reveal Limited crackles in the lung bases bilaterally. Cardiac exam reveals the PMI to be normally sized and situated. Rhythm is regular. First and second heart sounds normal. No murmurs, rubs or gallops. Abdominal exam reveals normal bowel sounds, no masses, no organomegaly and no aortic enlargement. Extremities are nonedematous and both femoral and pedal pulses are normal.Examination of the skin revealed no evidence of significant rashes, suspicious appearing nevi or other concerning lesions.Neurologically, the patient is awake and alert and the patient does not have any focal neurological deficit. Cranial nerves are essentially intact. - Labs CBC & Chem 7: 10/30/20 05:53 10/30/20 05:53 Labs: Abnormal Lab Results - Last 24 Hours (Table) 10/29/20 10/29/20 10/29/20 Range/Units 07:39 07:39 07:39 Neutrophils # (1.3-7.7) k/uL Lymphocytes # (1.0-4.8) k/uL Sodium (135-145) mmol/L BUN 35.0 H (9.0-27.0) mg/dL BUN/Creatinine Ratio 35.00 H (12.00-20.00) Ratio Glucose 352 H (70-110) mg/dL POC Glucose (mg/dL) (75-99) mg/dL Calcium 8.6 L (8.7-10.3) mg/dL Ferritin 582.5 H (22.0-322.0) ng/mL Lactate Dehydrogenase 296 H (120-246) U/L C-Reactive Protein 3.7 H (0.0-0.8) mg/dL Procalcitonin 0.12 H (0.02-0.09) ng/mL 10/29/20 10/29/20 10/30/20 Range/Units 17:09 20:41 05:53 Neutrophils # 8.0 H (1.3-7.7) k/uL Lymphocytes # 0.9 L (1.0-4.8) k/uL Sodium (135-145) mmol/L BUN (9.0-27.0) mg/dL BUN/Creatinine Ratio (12.00-20.00) Ratio Glucose (70-110) mg/dL POC Glucose (mg/dL) 395 H 318 H (75-99) mg/dL Calcium (8.7-10.3) mg/dL Ferritin (22.0-322.0) ng/mL Lactate Dehydrogenase (120-246) U/L C-Reactive Protein (0.0-0.8) mg/dL Procalcitonin (0.02-0.09) ng/mL 10/30/20 10/30/20 10/30/20 Range/Units 05:53 07:01 11:54 Neutrophils # (1.3-7.7) k/uL Lymphocytes # (1.0-4.8) k/uL Sodium 134 L (135-145) mmol/L BUN 35.0 H (9.0-27.0) mg/dL BUN/Creatinine Ratio 35.00 H (12.00-20.00) Ratio Glucose 260 H (70-110) mg/dL POC Glucose (mg/dL) 242 H 312 H (75-99) mg/dL Calcium (8.7-10.3) mg/dL Ferritin (22.0-322.0) ng/mL Lactate Dehydrogenase 303 H (120-246) U/L C-Reactive Protein 2.2 H (0.0-0.8) mg/dL Procalcitonin (0.02-0.09) ng/mL Assessment and Plan Plan: 1 acute bilateral COVID 19 related pneumonia 2 acute hypoxic respiratory failure secondary to above, stable and the patient is currently on 3 L of oxygen by nasal cannula. On and the process of weaning him down to 2 L a possible. 3 diabetes mellitus with a component of steroid-induced hyperglycemia, and blood sugar control as per medicine. 4 hypertension 5 hyperlipidemia Plan The patient will be kept on Decadron 6 mg by mouth daily Monitor blood sugar and he is currently off his pump and the patient was given Levemir and his scale coverage and medicine is monitoring and treating his blood sugars He is outside the window for Remdesivir Continue vitamin C/D in addition to zinc and Pepcid Lovenox for the prophylaxis 40 mg subcu daily Wean down the patient down to 2 L and monitor the pulse ox. If possible wean him down further to 1 L and later on December room air oxygen. We'll try to maintain a saturation above 90%.
--- NOTE | 2020-10-30 12:54 | P.PN ---
Subjective Progress Note Date: 10/30/20 No new complaints, patient is still requiring oxygen. Objective - Vital Signs Vital signs: Vital Signs Temp 97.5 F L 10/30/20 10:00 Pulse 40 L 10/30/20 10:00 Resp 16 10/30/20 10:00 BP 161/86 10/30/20 10:00 Pulse Ox 94 L 10/30/20 10:00 Intake & Output 10/29/20 10/30/20 10/30/20 18:59 06:59 18:59 Intake Total 200 200 Balance 200 200 Intake: Oral 200 200 Other: Voiding Method Toilet # Voids 3 2 - Exam Gen: awake, alert HEENT: normocephalic, atraumatic, good hearing acuity, moist mucous membranes Resp: good air exchange, breathing comfortably with no accessory muscle use CVS: good distal perfusion x 4, no JVD GI: soft, NTTP, ND : no SPT, no CVAT, murray catheter not present MSK: no pitting edema, no clubbing Neuro: non-focal, moving all extremities Psych: cooperative, euthymic mood - Labs CBC & Chem 7: 10/30/20 05:53 10/30/20 05:53 Labs: Abnormal Lab Results - Last 24 Hours (Table) 10/29/20 10/29/20 10/29/20 Range/Units 07:39 07:39 17:09 Neutrophils # (1.3-7.7) k/uL Lymphocytes # (1.0-4.8) k/uL Sodium (135-145) mmol/L BUN 35.0 H (9.0-27.0) mg/dL BUN/Creatinine Ratio 35.00 H (12.00-20.00) Ratio Glucose 352 H (70-110) mg/dL POC Glucose (mg/dL) 395 H (75-99) mg/dL Calcium 8.6 L (8.7-10.3) mg/dL Ferritin 582.5 H (22.0-322.0) ng/mL Lactate Dehydrogenase 296 H (120-246) U/L C-Reactive Protein 3.7 H (0.0-0.8) mg/dL 10/29/20 10/30/20 10/30/20 Range/Units 20:41 05:53 05:53 Neutrophils # 8.0 H (1.3-7.7) k/uL Lymphocytes # 0.9 L (1.0-4.8) k/uL Sodium 134 L (135-145) mmol/L BUN 35.0 H (9.0-27.0) mg/dL BUN/Creatinine Ratio 35.00 H (12.00-20.00) Ratio Glucose 260 H (70-110) mg/dL POC Glucose (mg/dL) 318 H (75-99) mg/dL Calcium (8.7-10.3) mg/dL Ferritin (22.0-322.0) ng/mL Lactate Dehydrogenase 303 H (120-246) U/L C-Reactive Protein 2.2 H (0.0-0.8) mg/dL 10/30/20 10/30/20 Range/Units 07:01 11:54 Neutrophils # (1.3-7.7) k/uL Lymphocytes # (1.0-4.8) k/uL Sodium (135-145) mmol/L BUN (9.0-27.0) mg/dL BUN/Creatinine Ratio (12.00-20.00) Ratio Glucose (70-110) mg/dL POC Glucose (mg/dL) 242 H 312 H (75-99) mg/dL Calcium (8.7-10.3) mg/dL Ferritin (22.0-322.0) ng/mL Lactate Dehydrogenase (120-246) U/L C-Reactive Protein (0.0-0.8) mg/dL Assessment and Plan Assessment: 1. Acute Hypoxemic Respiratory Failure 2. COVID-19 Pneumonia 3. ARDS secondary to #2 4. Hypertension, essential 5. Hyperlipidemia 6. Diabetes type II 70 year old man with HTN/HLD/DM with known COVID+ status since 10/22 presented with increasing chest pain, dyspnea and was found to be in hypoxemic respiratory failure secondary to COVID with evidence of ARDS on CXR/CT Chest, but no evidence of pulmonary embolism. Plan: - admit to telemetry, contact, airborne - pulmonary consulted for remdesivir, plasma - started dexamethasone 6mg PO daily - Vit C/D, Zn, Famotidine - enoxaparin 40mg SQ daily for VTE PPx - oxygen PRN - daily inflammatory markers: CRP, D-Dimer, Ferritin, LDH, Procalcitonin - CBC, CMP daily - continue home BP, cholesterol meds - accuchecks ACHS + low dose SSI AC-TID + levemir 10mg qHS (while on decadron) Full Code is DPOA
[2020-10-30] MEDS: OLMESARTAN MEDOXOMIL 40 MG PO SCH (15:13)
[2020-10-30 17:16] LABS: Glucose,Whole Blood 349 mg/dL (75-99)
[2020-10-30 18:19] VITALS: RESP 16
[2020-10-30 20:28] LABS: Glucose,Whole Blood 435 mg/dL (75-99)
[2020-10-30] MEDS ORDERED: INSULIN DETEMIR (LEVEMIR) 100 UNIT/ML SYR SQ SCH (21:00)
[2020-10-31 06:43] LABS: Basophils # (A) 0.1 k/uL (0-0.2); Basophils % (A) 1 %; Eosinophils % (A) 0 %; HCT 45.8 % (39.0-53.0); HGB 15.8 gm/dL (13.0-17.5); Lymphocytes # (A) 1.1 k/uL (1.0-4.8); Lymphocytes % (A) 10 %; MCHC 34.5 g/dL (31.0-37.0); MCV 89.8 fL (80.0-100.0); Mean Platelet Volume 7.8; Monocytes # (A) 0.6 k/uL (0-1.0); Monocytes % (A) 5 %; Neutrophils # (A) 9.2 k/uL (1.3-7.7); Neutrophils % (A) 82 %; Platelet Count 208 k/uL (150-450); RDW 12.1 % (11.5-15.5); WBC 11.1 k/uL (3.8-10.6)
[2020-10-31 07:17] LABS: Glucose,Whole Blood 300 mg/dL (75-99)
[2020-10-31 07:35] VITALS: PULSE 50
[2020-10-31] MEDS: METOPROLOL SUCCINATE (ER) 25 MG TAB.ER.24H PO SCH (07:36)
[2020-10-31] MEDS: ATORVASTATIN 20 MG TAB PO SCH (07:37)
[2020-10-31] MEDS: LOSARTAN 50 MG TAB PO SCH (07:37)
[2020-10-31] MEDS: dexAMETHasone 2 MG TAB PO SCH (07:37)
[2020-10-31] MEDS: FAMOTIDINE 20 MG TAB PO SCH (07:37)
[2020-10-31] MEDS: ENOXAPARIN 40 MG/0.4 ML SYRINGE SQ SCH (07:37)
[2020-10-31] MEDS: INSULIN ASPART (NovoLOG) 100 UNIT/ML VIAL SQ SCH ×2 (07:37→12:35)
[2020-10-31 09:31] LABS: African American GFR (CKD) 77.3 (60.0-200.0); Anion Gap 10.9 mmol/L (4.00-12.00); BUN/Creat Ratio 34.55 Ratio (12.00-20.00); C Reactive Protein 1.1 mg/dL (0.0-0.8); Calcium 9.5 mg/dL (8.7-10.3); Carbon Dioxide 25.1 mmol/L (21.6-31.8); Non-African American GFR(CKD) 66.7 (60.0-200.0); Potassium 4.7 mmol/L (3.5-5.5)
[2020-10-31 10:19] VITALS: BP 139/79; TEMP 97.5
[2020-10-31] MEDS ORDERED: INSULIN DETEMIR (LEVEMIR) 100 UNIT/ML SYR SQ ONE (11:15)
[2020-10-31 11:56] LABS: Glucose,Whole Blood 333 mg/dL (75-99)
--- NOTE | 2020-10-31 12:01 | P.DS ---
Providers Date of admission: 10/28/20 16:33 Expected date of discharge: 10/31/20 Attending physician: Sarai Kumar MD Consults: 10/28/20 16:32 Consult Physician Routine Consulting Provider: Steven Mars Consult Reason/Comments: covid 19 Do you want consulting provider notified?: Yes Primary care physician: [facility] Course: This is a 70-year-old male with past medical history noted below significant for type 2 diabetes on insulin pump at home, essential hypertension, and hyperlipidemia who presented to the emergency room with myalgia and chills. Patient was evaluated and was found to have COVID-[address] angiogram of the chest that was negative for PE. Patient was admitted to the hospital and was seen and evaluated by pulmonology. He was started on dexamethasone. He did not have any evidence of hypoxia on the day of my evaluation. His overall condition improved significantly. He will be discharged home to finish a 10 day course of dexamethasone. He was also advised to take supplements including zinc, vitamin C, and vitamin D. His metoprolol was discontinued secondary to bradycardia. Blood pressure within acceptable range. Patient follow-up in the office with Dr. Kyle. He was advised to follow-up as directed. He will be discharged home in a stable condition. For further details about this hospitalization please refer to the electronic chart. Patient Condition at Discharge: Fair Plan - Discharge Summary Discharge Rx Participant: No New Discharge Prescriptions: New Dexamethasone [Decadron] 6 mg PO DAILY #3 tablet Continue metFORMIN HCL 1,000 mg PO BID Losartan Potassium 100 mg PO DAILY INSULIN LISPRO (For Pump) [humaLOG (For Pump)] 0.01 units SQ-PUMP CONTINUOUS Atorvastatin [Lipitor] 20 mg PO DAILY Gabapentin [Neurontin] 300 mg PO BID PRN PRN Reason: feet pain Discontinued Metoprolol Succinate (ER) [Toprol XL] 25 mg PO DAILY Olmesartan Medoxomil [Benicar] 40 mg PO DAILY Tylenol (Unknown Strength) 3 tab PO ONETIME PRN PRN Reason: Fever And/ Or Pain Discharge Medication List metFORMIN HCL 1,000 mg PO BID 07/02/18 [History] Atorvastatin [Lipitor] 20 mg PO DAILY 10/28/20 [History] Gabapentin [Neurontin] 300 mg PO BID PRN 10/28/20 [History] INSULIN LISPRO (For Pump) [humaLOG (For Pump)] 0.01 units SQ-PUMP CONTINUOUS 10/28/20 [History] Losartan Potassium 100 mg PO DAILY 10/28/20 [History] Dexamethasone [Decadron] 6 mg PO DAILY #3 tablet 10/31/20 [Rx] Follow up Appointment(s)/Referral(s): Elia Acosta MD [Primary Care Provider] - 1 Week Discharge Disposition: HOME SELF-CARE
== END 2020-10-31 13:35 | disposition home or self-care (01) | DRG 177 ==
LOC: EC 14:31 → 6NMEDSUR 16:33 → 4SSUR 21:42
PROVIDERS: ADMIT Internal Medicine; ATTEND Internal Medicine
DX: U07.1 COVID-19 (principal); J12.89 Other viral pneumonia; J80 Acute respiratory distress syndrome; E11.65 Type 2 diabetes mellitus with hyperglycemia; Z79.4 Long term (current) use of insulin; I10 Essential (primary) hypertension; E78.5 Hyperlipidemia, unspecified; T38.0X5A Adverse effect of glucocorticoids and synthetic analogues, initial encounter; Z96.41 Presence of insulin pump (external) (internal); Z79.899 Other long term (current) drug therapy; Z87.891 Personal history of nicotine dependence; Z98.890 Other specified postprocedural states; Z87.19 Personal history of other diseases of the digestive system; Z87.39 Personal history of other diseases of the musculoskeletal system and connective tissue
CPT/HCPCS: 36415; 71046; 71275; 80048; 80053; 82728; 83615; 83735; 84145; 84484; 85025; 85379; 85610; 85730; 86140; 93005; 94760; 96372; 96374; 99285

== ENCOUNTER → 2021-07-21 | Outpatient (CLI) | payer MEDICARE ==
[2021-07-21 18:51] LABS: Basophils # (A) 0.04 X 10*3/uL (0.00-0.10); Basophils % (A) 0.5 %; Eosinophils % (A) 2.7 %; HCT 41.9 % (39.6-50.0); HGB 13.7 g/dL (13.0-17.0); Lymphocytes # (A) 2.25 X 10*3/uL (0.90-5.00); Lymphocytes % (A) 30.5 %; MCH 30.4 pg (27.0-32.0); MCHC 32.7 g/dL (32.0-37.0); MCV 93.1 fL (80.0-97.0); Mean Platelet Volume 12.2 fL (9.5-12.2); Monocytes # (A) 0.78 X 10*3/uL (0.20-1.00); Monocytes % (A) 10.6 %; Neutrophils % (A) 55.6 %; Platelet Count 155 X 10*3/uL (140-440); RDW 12.8 % (11.5-14.5); WBC 7.38 X 10*3/uL (4.50-10.00)
[2021-07-22 20:41] LABS: African American GFR (CKD) 97.9 (60.0-200.0); Albumin 4.3 g/dL (3.80-4.90); Albumin/Globulin Ratio 1.87 (1.60-3.17); Anion Gap 5.9 mmol/L (4.00-12.00); Calcium 9.9 mg/dL (8.7-10.3); Carbon Dioxide 28.1 mmol/L (21.6-31.8); Chol/HDL Ratio 3.72; Globulin 2.3 g/dL (1.6-3.3); Non-African American GFR(CKD) 84.4 (60.0-200.0); Potassium 4.3 mmol/L (3.5-5.5); Total Bilirubin 0.9 mg/dL (0.2-1.2); Total Protein 6.6 g/dL (6.2-8.2)
[2021-07-22 20:48] LABS: T4, Free (Free Thyroxine) 1.1 ng/dL (0.80-1.80)
[2021-07-23 13:16] LABS: Urine Creatinine 101.3 mg/dL
== END | disposition home or self-care (01) ==
LOC: LABWHC1 12:09
PROVIDERS: ATTEND Internal Medicine
DX: E78.5 Hyperlipidemia, unspecified (principal); I10 Essential (primary) hypertension; E11.9 Type 2 diabetes mellitus without complications
CPT/HCPCS: 36415; 80053; 80061; 82043; 82570; 83036; 84439; 84443; 85025

== ENCOUNTER 2022-04-02 18:35 | Emergency (ER) | payer MEDICARE ==
[2022-04-02 19:44] VITALS: BP 152/85; PULSE 74; RESP 18; TEMP 98.4
--- NOTE | 2022-04-02 20:24 | XR ---
EXAMINATION TYPE: XR chest 2V DATE OF EXAM: 04/02/2022 7:58 PM COMPARISON: Multiple radiographs, with the most recent on TECHNIQUE: XR chest 2V Frontal and lateral views of the chest. CLINICAL INDICATION:Male, 71 years old with history of Cough; FINDINGS: Lungs/Pleura: Scattered subtle reticular and hazy opacities of the lungs compared to prior. No eviden ce of pneumothorax, focal consolidation or pleural effusion. Pulmonary vascularity: Unremarkable. Heart/mediastinum: Cardiomediastinal silhouette is unremarkable. Musculoskeletal: No acute osseous pathology. IMPRESSION: Scattered increased reticular and subtle hazy opacities correlate for atypical pneumonia.
[2022-04-02] MEDS ORDERED: CEFDINIR 300 MG CAP PO STA (22:26)
[2022-04-02] MEDS ORDERED: DOXYCYCLINE 100 MG CAP PO STA (22:26)
[2022-04-02] MEDS ORDERED: BENZONATATE 100 MG CAP PO STA (22:28)
--- NOTE | 2022-04-02 22:30 | ED ---
URI HPI - General Chief Complaint: Upper Respiratory Infection Stated Complaint: Congestion, Cough, Headache Time Seen by Provider: 04/02/22 22:19 Source: patient, RN notes reviewed Mode of arrival: ambulatory Limitations: no limitations - Related Data Home Medications Medication Instructions Recorded Confirmed metFORMIN HCL [Glucophage] 1,000 mg PO BID 07/02/18 10/28/20 Atorvastatin [Lipitor] 20 mg PO DAILY 10/28/20 10/28/20 Gabapentin [Neurontin] 300 mg PO BID PRN 10/28/20 10/28/20 INSULIN LISPRO (For Pump) [humaLOG 0.01 units SQ-PUMP CONTINUOUS 10/28/20 10/28/20 (For Pump)] Losartan Potassium 100 mg PO DAILY 10/28/20 10/28/20 Previous Rx's Medication Instructions Recorded Ascorbic Acid [Vitamin C] 1,000 mg PO DAILY #30 tablet 10/31/20 Cholecalciferol [Vitamin D3 (25 2,000 unit PO DAILY #30 tablet 10/31/20 Mcg = 1000 Iu)] Dexamethasone [Decadron] 6 mg PO DAILY #3 tablet 10/31/20 Zinc Sulfate 220 mg PO DAILY #14 capsule 10/31/20 Benzonatate [Tessalon Perles] 200 mg PO TID PRN #30 capsule 04/02/22 Cefdinir 300 mg PO Q12HR #20 cap 04/02/22 Doxycycline [Vibramycin] 100 mg PO BID 1 Days #20 each 04/02/22 Allergies Allergy/AdvReac Type Severity Reaction Status Date / Time No Known Allergies Allergy Verified 04/02/22 19:43 Review of Systems ROS Statement: Those systems with pertinent positive or pertinent negative responses have been documented in the HPI. ROS Other: All systems not noted in ROS Statement are negative. Past Medical History Past Medical History: Diabetes Mellitus, Hyperlipidemia, Hypertension History of Any Multi-Drug Resistant Organisms: None Reported Past Surgical History: Hernia Repair, Orthopedic Surgery Additional Past Surgical History / Comment(s): left shoulder Past Anesthesia/Blood Transfusion Reactions: Unable to Obtain Past Psychological History: No Psychological Hx Reported Smoking Status: Former smoker Past Alcohol Use History: Rare Past Drug Use History: None Reported General Exam Limitations: no limitations Course Vital Signs 04/02/22 19:41 Temperature 98.4 F Pulse Rate 74 Respiratory 18 Rate Blood Pressure 152/85 O2 Sat by Pulse 95 Oximetry Medical Decision Making - Medical Decision Making Chest x-ray consistent with possible atypical pneumonia. Patient's vital signs are stable, patient afebrile. According to curb 65 patient is a good candidate for outpatient treatment. Since the patient is diabetic and going to cover him with 2 antibiotics. Will use Ceftin here and doxycycline. Cough medicine given as well. Patient to follow-up with his regular physician. I did offer laboratory work. We discussed benefits versus drawbacks of laboratory work. Patient has had a long wait in the waiting room. Patient really wants to be treated and wants to leave. Patient is lucid, stable, he will make his own medi taylor decisions. He is of sound mind. Laboratory work was deferred to shared decision-making. Of course the patient knows to return if any symptoms worsen. Patient was told to return to the ER for any signs or symptoms worsen. Told to return immediately if any other problems arise. All questions answered. Treatment plan discussed. Patient in agreement Every effort has been made to ensure accuracy of this dictation. However, due to the limitations of electronic medical records and dictation devices, errors in charting still occur. Supervising physician is Dr. Cooper - Lab Data Lab Results 04/02/22 04/02/22 Range/Units 19:44 19:44 Coronavirus (PCR) Not Detected (Not Detectd) Influenza Type A RNA Not Detected (Not Detectd) Influenza Type B (PCR) Not Detected (Not Detectd) - Radiology Data Radiology results: report reviewed, image reviewed Disposition Clinical Impression: Community acquired pneumonia Narrative: Probable atypical versus viral Disposition: HOME SELF-CARE Condition: Good Instructions (If sedation given, give patient instructions): Pneumonia (ED) Additional Instructions: Take both antibiotics as directed. Use the cough medicine if needed. Call tomorrow morning to set up a follow-up appointment with your regular doctor. Return to the ER immediately if any symptoms worsen or any other problems arise. Drink plenty of fluids. Monitor sugars closely. Prescriptions: Cefdinir 300 mg PO Q12HR #20 cap Benzonatate [Tessalon Perles] 200 mg PO TID PRN #30 capsule PRN Reason: Cough Doxycycline [Vibramycin] 100 mg PO BID 1 Days #20 each Is patient prescribed a controlled substance at d/c from ED?: No Referrals: Elia Acosta MD [Primary Care Provider] - 1-2 days Time of Disposition: 22:30
== END 2022-04-02 22:56 | disposition home or self-care (01) ==
LOC: EC 18:35
DX: J18.9 Pneumonia, unspecified organism (principal); E11.9 Type 2 diabetes mellitus without complications; E78.5 Hyperlipidemia, unspecified; I10 Essential (primary) hypertension; Z87.891 Personal history of nicotine dependence; Z79.899 Other long term (current) drug therapy; Z20.822 Contact with and (suspected) exposure to COVID-19; Z79.4 Long term (current) use of insulin; Z96.41 Presence of insulin pump (external) (internal)
CPT/HCPCS: 71046; 87502; 87635; 99283

== ENCOUNTER → 2022-07-31 | Outpatient (CLI) | payer MEDICARE ==
--- NOTE | 2022-07-31 12:35 | XR ---
EXAMINATION TYPE: XR elbow complete LT DATE OF EXAM: 07/31/2022 CLINICAL HISTORY: Pain after injury. TECHNIQUE: Frontal, lateral and oblique images of the left elbow are obtained. COMPARISON: None FINDINGS: There is no acute fracture/dislocation evident in the left elbow. No abnormal fat pad sig ns are seen. There is 4 mm oval well-defined oval ossification along the ulnar aspect at the level o f the elbow joint could reflect product of old avulsion type fracture or intra-articular loose body. Mild to moderate spurring along the radial aspect of the radial head is seen. The overlying soft tiss ue appears unremarkable. IMPRESSION: As above.
== END | disposition home or self-care (01) ==
LOC: RADXRMAIN 12:01
PROVIDERS: ATTEND Internal Medicine
DX: S59.802A Other specified injuries of left elbow, initial encounter (principal)

== ENCOUNTER → 2022-08-10 | Outpatient (CLI) | payer MEDICARE ==
--- NOTE | 2022-08-10 18:00 | MR ---
EXAMINATION TYPE: MR knee RT wo con DATE OF EXAM: 08/10/2022 COMPARISON: None HISTORY: Right knee pain. TECHNIQUE: Multiplanar, multisequence imaging of the right knee is performed without IV contrast. FINDINGS: MEDIAL MENISCUS: Diminutive posterior horn medial meniscus compatible with tear. Anterior horn is sharonda ssly unremarkable. LATERAL MENISCUS: Anterior and posterior horns are intact without tear. CRUCIATE LIGAMENTS: The anterior and posterior cruciate ligaments are intact and unremarkable. COLLATERAL LIGAMENTS: The medial collateral ligament and lateral collateral ligament complex are inta ct and unremarkable. EXTENSOR MECHANISM: Visualized quadriceps and patellar tendons are intact. EFFUSION: Small suprapatellar joint effusion. POPLITEAL CYST: No popliteal/newman cyst. TRICOMPARTMENT SPACES: Moderate narrowing medial tibiofemoral joint space. CARTILAGE: Intact BONE MARROW SIGNAL: No focal abnormal marrow signal is appreciated. OTHER: No additional significant abnormality is appreciated. IMPRESSION: 1. Tear posterior horn medial meniscus. 2. Changes of osteoarthritis.
== END | disposition home or self-care (01) ==
LOC: RADMRIMAIN 12:34
PROVIDERS: ATTEND Orthopaedic Surgery
DX: M23.221 Derangement of posterior horn of medial meniscus due to old tear or injury, right knee (principal); M17.11 Unilateral primary osteoarthritis, right knee

== ENCOUNTER → 2022-08-21 | Outpatient (CLI) | payer MEDICARE ==
--- NOTE | 2022-08-21 15:28 | CT ---
EXAMINATION TYPE: CT lumbar spine wo con DATE OF EXAM: 08/21/2022 3:19 PM COMPARISON: None. HISTORY: SPONDYLOLYSIS . Low back pain for 2 months into right buttocks and thigh. CT DLP: 982 mGycm Automated exposure control for dose reduction was used. Unenhanced CT of the lumbar spine was performed. Bone and soft tissue window settings are submitted as well as coronal and sagittal reconstructions. There are 5 lumbar-type vertebra. Lumbar spine shows satisfactory alignment. Bilateral pars defect L5 level noted. Vertebral body heights and disc space heights are maintained. Axial images show the T12-L1 along with the L1-L2 levels to appear within normal limits. Axial images at L2-L3 level show mild to moderate right greater than left facet arthropathy. Spinal c anal is preserved. Bilateral neural foramina are patent. Axial images at L3-L4 level show mild facet arthropathy bilaterally. There is mild broad-based mechanical tech ior disc protrusion mildly effacing anterior thecal sac on axial image 44. Mild to moderate left grea ter than right bilateral anterior inferior neural foraminal narrowing is seen. Axial images at L4-L5 level show mild to moderate facet arthropathy and ligamentum flavum hypertrophy . There is central disc protrusion mildly effacing the anterior thecal sac. There is left foraminal c omponent causing moderate to severe left-sided neural foraminal narrowing. There is mild right-sided neural foraminal narrowing. Axial images at the L5-S1 level show mild facet arthropathy bilaterally. Spinal canal is preserved. R ight-sided neural foramina shows mild to moderate anterior inferior neural foraminal narrowing due to foraminal spur disc complex. Left-sided neural foramina is patent. Cortical thinning in both kidneys. There is 2.1 cm central calculus in the left kidney coronal image 22. Mild to moderate calcified plaque of the aorta extends into branch vessels. IMPRESSION: Bilateral pars defect L5 level without spondylolisthesis. Multilevel degenerative changes in the mid to lower lumbar spine as detailed above. Left-sided nephrolithiasis noted.
--- NOTE | 2022-08-21 17:01 | MR ---
EXAMINATION TYPE: MR lumbar spine wo con DATE OF EXAM: 08/21/2022 3:42 PM COMPARISON: CT lumbar spine 08/21/2022. CLINICAL INDICATION:Male, 72 years old with history of M43.07 SPONDYLOLYSIS; TECHNIQUE: Multi planar, multi sequence imaging was performed utilizing: T1-weighted, T2-weighted, a nd turbo inversion recovery imaging of the lumbar spine. IV Contrast: None FINDINGS: Alignment: The lumbar vertebral bodies have preserved heights and alignment. Cord: The conus medullaris and the distal spinal cord appear unremarkable with regards to their signa l intensity and morphology. Bones/Discs: No evidence of bony edema on inversion recovery sequences. Multilevel degenerative disc disease is noted and most pronounced at the L5-S1. Multilevel disc desiccation is present. Bilateral spondylolysis of L5 without bony edema noted. L1-L2: No significant disc pathology. Spinal canal is patent. The neural foramen are patent. L2-L3: No significant disc pathology. Spinal canal is patent. The neural foramen are patent. L3-L4: Disc bulge with bilateral facet arthropathy result in mild spinal canal and mild bilateral nighat ral foraminal stenosis. L4-L5: Disc bulge with bilateral facet arthropathy result in mild spinal canal and mild bilateral nighat ral foraminal stenosis. L5-S1: Disc bulge with bilateral facet arthropathy result in mild spinal canal and mild to moderate b ilateral neural foraminal stenosis. Other findings: None. IMPRESSION: 1. No definitive evidence of disc herniation or significant spinal canal stenosis. 2. Mild multilevel disc degeneration with associated osteoarthritic changes. 3. Bilateral L5 spondylolysis. No significant anterolisthesis identified. No bony edema within the L5 vertebrae.
== END | disposition home or self-care (01) ==
LOC: RADCTMAIN 14:39
PROVIDERS: ATTEND Orthopaedic Surgery
DX: M47.816 Spondylosis without myelopathy or radiculopathy, lumbar region (principal); M51.26 Other intervertebral disc displacement, lumbar region; N20.0 Calculus of kidney
CPT/HCPCS: 72131; 72148

== ENCOUNTER → 2022-10-04 | Outpatient (CLI) | payer MEDICARE ==
[2022-10-04 18:33] LABS: ALT 67 U/L (10-49); AST 42 U/L (14-35); African American GFR (CKD) 99.2 (60.0-200.0); Albumin 4.3 g/dL (3.8-4.9); Albumin/Globulin Ratio 1.85 (1.60-3.17); Alkaline Phosphatase 81 U/L (41-126); BUN/Creat Ratio 19.39 Ratio (12.00-20.00); Blood Urea Nitrogen 16.6 mg/dL (9.0-27.0); Calcium 9.7 mg/dL (8.7-10.3); Carbon Dioxide 26.8 mmol/L (20.0-27.5); Chloride 105 mmol/L (96-109); Chol/HDL Ratio 3.56 Ratio; Globulin 2.3 g/dL (1.6-3.3); Glucose 186 mg/dL (70-110); LDL Cholesterol,Calculated 69.4 mg/dL (0.0-131.0); Non-African American GFR(CKD) 85.6 (60.0-200.0); Potassium 4.8 mmol/L (3.5-5.5); Sodium 147 mmol/L (135-145); Total Protein 6.6 g/dL (6.2-8.2)
== END | disposition home or self-care (01) ==
LOC: LABWHC1 11:20
PROVIDERS: ATTEND Internal Medicine Endocrinology, Diabetes & Metabolism
DX: E11.65 Type 2 diabetes mellitus with hyperglycemia (principal); E78.2 Mixed hyperlipidemia
CPT/HCPCS: 36415; 80053; 80061

== ENCOUNTER → 2022-10-04 | Outpatient (CLI) | payer MEDICARE ==
[2022-10-04 18:14] LABS: Basophils # (A) 0.04 X 10*3/uL (0.00-0.10); Basophils % (A) 0.5 %; Eosinophils # (A) 0.29 X 10*3/uL (0.04-0.35); Eosinophils % (A) 3.4 %; HCT 40.5 % (39.6-50.0); HGB 13.6 g/dL (13.0-17.0); Immature Grans, Automated 0.5 %; Lymphocytes # (A) 1.77 X 10*3/uL (0.90-5.00); Lymphocytes % (A) 20.5 %; MCH 30.8 pg (27.0-32.0); MCHC 33.6 g/dL (32.0-37.0); MCV 91.8 fL (80.0-97.0); Mean Platelet Volume 11.5 fL (9.5-12.2); Monocytes # (A) 0.79 X 10*3/uL (0.20-1.00); Monocytes % (A) 9.1 %; NRBC Per 100 WBC 0 /100 WBCS (0.0-0.0); Neutrophils # (A) 5.71 X 10*3/uL (1.80-7.70); Platelet Count 187 X 10*3/uL (140-440); RBC 4.41 X 10*6/uL (4.40-5.60); RDW 13.9 % (11.5-14.5); WBC 8.64 X 10*3/uL (4.50-10.00)
[2022-10-04 18:32] LABS: Anion Gap 14.3 mmol/L (10.00-18.00); Carbon Dioxide 26.8 mmol/L (20.0-27.5); Potassium 4.6 mmol/L (3.5-5.5)
== END | disposition home or self-care (01) ==
LOC: LABPAT 14:14
PROVIDERS: ATTEND Orthopaedic Surgery
DX: Z01.812 Encounter for preprocedural laboratory examination (principal); M23.91 Unspecified internal derangement of right knee
CPT/HCPCS: 80051; 85025

== ENCOUNTER → 2022-10-10 | Day surgery (SDC) | payer MEDICARE ==
--- NOTE | 2022-10-09 13:40 | HP ---
HISTORY AND PHYSICAL DATE OF SCHEDULED SURGERY: 10/10/2022. HISTORY OF PRESENT ILLNESS: Carlos Cohen is a 72-year-old gentleman seen with progressive right knee pain. We discussed options for treatment. He elected to proceed with right knee arthroscopy. Consent was obtained. PAST MEDICAL HISTORY: Hypertension, hyperlipidemia, gvs-piywuay-scjkhvzvd diabetes. PAST SURGICAL HISTORY: Noncontributory. DAILY MEDICATIONS: 1. Lipitor. 2. Losartan. 3. Metformin. 4. Metoprolol. 5. Advil. ALLERGIES: None. SOCIAL HISTORY: Denies tobacco use. PHYSICAL EVALUATION OF RIGHT KNEE: His range of motion is -2/3-120. Mild effusion. Tenderness to medial joint line. Positive medial Jovani's. Ligaments stable. Hip rotation without pain. Distal neurovascular exam is intact. RADIOGRAPHS: Right knee radiographs revealed moderate osteoarthritic changes. MRI of the right knee revealed medial meniscal tear, osteoarthritic changes and effusion. IMPRESSION: 1. Internal derangement of right knee with medial meniscal tear. 2. Hypertension. 3. Hyperlipidemia. 4. Ssf-ptjlhrm-buhscuzhi diabetes. PLAN: Right knee arthroscopy with partial medial meniscectomy and debridement. MMODL / IJN: [id number] /
[~2022-10-10] MED LIST: BUPIVACAIN-EPI 0.25%-1:200,000 30 ML VIAL SQ ONE; DEXAMETHASONE SOD PHOSPHATE 4 MG/ML 1 ML VIAL IV ONE; HYDROcodone/APAP 5-325MG 1 EACH TAB ONE; HYDROcodone/APAP 5-325MG 1 EACH TAB PO ONE; HYDROmorphone 0.5 MG/0.5 ML SYRINGE IVP PRN; INSULIN ASPART (NovoLOG) 100 UNIT/ML VIAL SQ ONE; LACTATED RINGERS 1,000 ML IV ONE; LACTATED RINGERS 1,000 ML IV SCH; LIDOCAINE 2% INJ 20 MG/ML (2 ML VIAL) ONE; MIDAZOLAM 2 MG/2 ML VIAL IV PRN; MIDAZOLAM 2 MG/2 ML VIAL ONE; ONDANSETRON 4 MG/2 ML VIAL IVP ONE; PROPOFOL 10 MG/ML 20 ML VIAL IV ONE; ePHEDrine 50 MG/ML 1 ML VIAL ONE; fentaNYL (PF) 50 MCG/ML 2 ML AMP ONE
[2022-10-10 08:19] LABS: Glucose,Whole Blood 148 mg/dL (70-110)
--- NOTE | 2022-10-10 10:07 | P.OP ---
Date of Procedure: 10/10/22 Preoperative Diagnosis: Internal derangement right knee Postoperative Diagnosis: 1. Tear medial and lateral meniscus right knee 2. Grade 4 chondromalacia medial femoral condyle right knee 3. Reactive synovitis medial, lateral and suprapatellar compartments right knee Procedure(s) Performed: 1. Arthroscopic partial medial and lateral meniscectomy right knee 2. Arthroscopic microfracture medial femoral condyle right knee 3. Arthroscopic partial synovectomy medial, lateral and suprapatellar compartments right knee Anesthesia: WARRENA, local Surgeon: Erich Loaiza Estimated Blood Loss (ml): 7 Pathology: none sent Condition: stable Disposition: PACU Indications for Procedure: 72-year-old patient seen with progressive right knee pain. After having treatment options discussed, he elected to proceed with arthroscopy. Operative Findings: See description of procedure Description of Procedure: Patient was taken to the operative suite. Patient underwent a general anesthetic by the department of anesthesia. Patient was given preoperative antibiotics. The right lower extremity was placed in a well-padded arthroscopic leg donato. The right leg was prepped and draped in the normal sterile orthopedic fashion. A lateral parapatellar and suprapatellar incision was made. Trochars were inserted. Arthroscopy was initiated. Suprapatellar pouch revealed diffuse thick reactive synovitis. The patellofemoral joint appeared to articulate congruently. There was grade 2/3 chondral malacia of the patellofemoral joint without significant osteochondral tears being present.. The scope was guided into the medial gutter. No loose body or plica were identified. The scope was then guided into the medial compartment. A medial parapatellar incision was made. Trocar inserted followed by probe. There was a complex tear involving the posterior horn of the medial meniscus extending into the midbody area. There was an area of grade 3/4 chondromalacia medial femoral condyle with a large osteochondral flap tear present. There was thick reactive synovitis anteriorly. I performed a partial medial meniscectomy getting down to stable meniscal tissue. I performed a chondroplasty of the medial femoral condyle getting down to stable osteochondral tissue. I performed a partial synovectomy compressing the thick reactive synovitis. I noted areas of exposed bone medial femoral condyle weightbearing surface measuring approximately 1 cm diameter. I introduced a microfracture awl performed a microfracture that area penetrating the bone with the resultant bleeding at the microfracture site. The residual meniscus was probed and was found to be stable. The residual osteochondral surface appeared stable. There was good decompression of the synovitis. Scope and probe were then guided into the intercondylar notch. Cruciates were identified, probed and found to be stable. The scope and probe were then guided into lateral compartment. There was a radial tear involving the midbody lateral meniscus. There was some thick reactive synovitis anteriorly. There were grade 1 chondromalacia changes of the lateral compartment. I performed a partial lateral meniscectomy getting down to stable meniscal tissue. I performed a partial synovectomy decompressing the reactive synovitis. The residual meniscus was stable. There was good decompression of the synovitis. The scope was in guided back into the suprapatellar compartment. I introduced the motorized shaver into the suprapatellar compartment. I debrided some piecemeal fragments of meniscus that I encountered. I performed a partial synovectomy. Shaver was now removed. I took one more look on the entire knee, no residual debris. Instruments were now removed from the joint. The joint was infiltrated with .25% Marcaine. Steri-Strips were applied to the portal sites. Sterile dressings were applied. The patient was placed into a KHARI hose. No tourniquet was utilized. The patient was awakened, transferred to a bed and taken to recovery stable satisfactory condition.
[2022-10-10 10:20] VITALS: TEMP 96.9
[2022-10-10 10:40] VITALS: RESP 16
[2022-10-10 10:51] LABS: Glucose,Whole Blood 238 mg/dL (70-110)
[2022-10-10 13:14] VITALS: BP 132/73; PULSE 60
== END | disposition home or self-care (01) ==
LOC: OR 07:43
PROVIDERS: ATTEND Orthopaedic Surgery
DX: S83.281A Other tear of lateral meniscus, current injury, right knee, initial encounter (principal); M94.261 Chondromalacia, right knee; M23.91 Unspecified internal derangement of right knee; M65.861 Other synovitis and tenosynovitis, right lower leg; I10 Essential (primary) hypertension; E78.5 Hyperlipidemia, unspecified; E11.9 Type 2 diabetes mellitus without complications; Z79.84 Long term (current) use of oral hypoglycemic drugs; Z79.899 Other long term (current) drug therapy
CPT/HCPCS: 29879; 29880; J2250; J0690; J2405; J3010; J2704; J1170; J2001

== ENCOUNTER 2022-10-23 07:44 | Day surgery (SDC) | payer MEDICARE ==
[~2022-10-23 07:44] MED LIST changes: -BUPIVACAIN-EPI 0.25%-1:200,000 30 ML VIAL SQ ONE; -DEXAMETHASONE SOD PHOSPHATE 4 MG/ML 1 ML VIAL IV ONE; -HYDROcodone/APAP 5-325MG 1 EACH TAB ONE; -HYDROcodone/APAP 5-325MG 1 EACH TAB PO ONE; -HYDROmorphone 0.5 MG/0.5 ML SYRINGE IVP PRN; -INSULIN ASPART (NovoLOG) 100 UNIT/ML VIAL SQ ONE; -LACTATED RINGERS 1,000 ML IV ONE; +LIDOCAINE 1% (10MG/ML) FOR IV START INTRADERMA PRN; -LIDOCAINE 2% INJ 20 MG/ML (2 ML VIAL) ONE; -MIDAZOLAM 2 MG/2 ML VIAL IV PRN; -MIDAZOLAM 2 MG/2 ML VIAL ONE; -ONDANSETRON 4 MG/2 ML VIAL IVP ONE; -PROPOFOL 10 MG/ML 20 ML VIAL IV ONE; -ePHEDrine 50 MG/ML 1 ML VIAL ONE; -fentaNYL (PF) 50 MCG/ML 2 ML AMP ONE
[2022-10-23] MEDS ORDERED: LACTATED RINGERS 1,000 ML IV ONE (08:09)
[2022-10-23 08:23] VITALS: TEMP 97.3
[2022-10-23 08:26] LABS: Glucose,Whole Blood 253 mg/dL (70-110)
[2022-10-23] MEDS ORDERED: PROPOFOL 10 MG/ML 20 ML VIAL IV ONE (08:47)
--- NOTE | 2022-10-23 08:49 | P.GSHP ---
History of Present Illness H&P Date: 10/23/22 Chief Complaint: Rectal bleeding 72-year-old male here today for colonoscopy. Last colonoscopy 20 years ago. 6 weeks ago patient had bright red blood per rectum. No constipation or diarrhea. No family history of colon cancer. Past Medical History Past Medical History: Diabetes Mellitus, Hyperlipidemia, Hypertension Additional Past Medical History / Comment(s): blood in stool History of Any Multi-Drug Resistant Organisms: None Reported Past Surgical History: Hernia Repair, Orthopedic Surgery Additional Past Surgical History / Comment(s): left shoulder , rt knee arthroscopic surgery Past Anesthesia/Blood Transfusion Reactions: Unable to Obtain Smoking Status: Former smoker - Past Family History Father Family Medical History: No Reported History Medications and Allergies Home Medications Medication Instructions Recorded Confirmed Type metFORMIN HCL [Glucophage] 1,000 mg PO HS 07/02/18 10/19/22 History Atorvastatin [Lipitor] 20 mg PO HS 10/28/20 10/19/22 History INSULIN LISPRO (For Pump) [humaLOG 0.01 units SQ-PUMP CONTINUOUS 10/28/20 10/19/22 History (For Pump)] Clobetasol Propionate/Emoll 1 applic TOPICAL DAILY 10/05/22 10/19/22 History [Clobetasol Emulsion 0.05% Foam] Methotrexate/Pf [Reditrex 25 mg/ml 50 mg SQ WEEKLY 10/05/22 10/19/22 History Syringe] Cephalexin [Keflex] 500 mg PO Q6HR 5 Days #20 cap 10/10/22 10/19/22 Rx HYDROcodone/APAP 5-325MG [[place] 1 tab PO Q6HR PRN #12 tab 10/10/22 10/19/22 Rx 5-325] Aspirin 81 mg PO HS 10/19/22 10/23/22 History Losartan Potassium 100 mg PO DAILY 10/23/22 10/23/22 History Metoprolol Succinate [Metoprolol 25 mg PO Q24HR 10/23/22 10/23/22 History Succinate ER] Allergies Allergy/AdvReac Type Severity Reaction Status Date / Time No Known Allergies Allergy Verified 10/23/22 08:10 Surgical - Exam Vital Signs Temp Pulse Resp BP Pulse Ox 97.3 F L 110 H 18 158/93 98 10/23/22 08:16 10/23/22 08:16 10/23/22 08:16 10/23/22 08:16 10/23/22 08:16 Physical exam: General: Well-developed, well-nourished HEENT: Normocephalic, sclerae nonicteric Abdomen: Nontender, nondistended Extremities: No edema Neuro: Alert and oriented Results - Labs Abnormal Lab Results - Last 24 Hours (Table) 10/23/22 Range/Units 08:21 POC Glucose (mg/dL) 253 H (70-110) mg/dL Assessment and Plan (1) Rectal bleeding Narrative/Plan: Will proceed with colonoscopy at this time. Current Visit: Yes Status: Acute Code(s): K62.5 - HEMORRHAGE OF ANUS AND RECTUM SNOMED Code(s): 28200232
--- NOTE | 2022-10-23 09:07 | P.PCN ---
Date of Procedure: 10/23/22 Procedure(s) Performed: PREOPERATIVE DIAGNOSIS: Blood in stool POSTOPERATIVE DIAGNOSIS: Small hemorrhoids, diverticulosis PROCEDURE: Colonoscopy ANESTHESIA: MAC SURGEON: Janak Holt M.D. SPECIMENS: None ENDOSCOPIC PROCEDURE: The patient was placed on the endoscopy table in the left decubitus position. The Olympus colonoscope was inserted into the anus and passed under direct visualization to the base of the cecum. The appendiceal orifice was visualized. From that point the scope was slowly withdrawn inspecting all surfaces carefully. There were no neoplastic inflammatory or polypoid lesions throughout the cecum, ascending, transverse, descending, sigmoid and rectum. There was scattered diverticulosis noted.. Digital rectal examination revealed small hemorrhoids. The patient was taken to the recovery room in stable condition per anesthesia guidelines. RECOMMENDATIONS: Resume diet. Increase fiber. Follow-up colonoscopy 10 years.
[2022-10-23 09:15] VITALS: RESP 16
[2022-10-23 09:29] VITALS: BP 101/70; PULSE 92
== END 2022-10-23 09:50 | disposition home or self-care (01) ==
LOC: ORWHC2ENDO 07:44
PROVIDERS: ATTEND Surgery
DX: K57.30 Diverticulosis of large intestine without perforation or abscess without bleeding (principal); K64.9 Unspecified hemorrhoids; E11.9 Type 2 diabetes mellitus without complications; E78.5 Hyperlipidemia, unspecified; I10 Essential (primary) hypertension; Z87.891 Personal history of nicotine dependence; Z79.84 Long term (current) use of oral hypoglycemic drugs; Z98.890 Other specified postprocedural states; Z79.899 Other long term (current) drug therapy; Z79.4 Long term (current) use of insulin; Z79.82 Long term (current) use of aspirin
CPT/HCPCS: 45378; J2704

== ENCOUNTER 2022-11-05 13:56 | Observation (INO) | payer MEDICARE ==
[2022-11-05] MEDS ORDERED: NITROGLYCERIN OINT 1 INCH/GM PACKET TOPICAL STA (14:32)
[2022-11-05] MEDS ORDERED: ASPIRIN 81 MG PO STA (14:32)
[2022-11-05 14:50] LABS: Basophils % (A) 1 %; Eosinophils # (A) 0.3 k/uL (0-0.7); Eosinophils % (A) 4 %; Lymphocytes # (A) 1.6 k/uL (1.0-4.8); Lymphocytes % (A) 25 %; MCH 31.7 pg (25.0-35.0); MCV 90.7 fL (80.0-100.0); Mean Platelet Volume 8.9; Monocytes # (A) 0.4 k/uL (0-1.0); Monocytes % (A) 5 %; Neutrophils # (A) 4.2 k/uL (1.3-7.7); Neutrophils % (A) 63 %; Platelet Count 146 k/uL (150-450); RBC 4.42 m/uL (4.30-5.90); RDW 13.8 % (11.5-15.5); WBC 6.7 k/uL (3.8-10.6)
[2022-11-05 14:58] LABS: Prothrombin Time 10.9 sec (9.0-12.0)
[2022-11-05 14:59] LABS: Partial Thromboplastin Time 23.4 sec (22.0-30.0)
[2022-11-05 15:07] LABS: ALT 69 U/L (4-49); AST 50 U/L (17-59); African American GFR (CKD) >90 (>60 ml/min/1.73 sqM); Alkaline Phosphatase 90 U/L (38-126); Anion Gap 9 mmol/L; Blood Urea Nitrogen 31 mg/dL (9-20); Calcium 9.5 mg/dL (8.4-10.2); Carbon Dioxide 25 mmol/L (22-30); Chloride 106 mmol/L (98-107); Glucose 227 mg/dL (74-99); Magnesium 1.5 mg/dL (1.6-2.3); Non-African American GFR(CKD) 85 (>60 ml/min/1.73 sqM); Potassium 4.1 mmol/L (3.5-5.1); Sodium 140 mmol/L (137-145); Total Bilirubin 0.4 mg/dL (0.2-1.3); Total Protein 6.7 g/dL (6.3-8.2)
--- NOTE | 2022-11-05 15:27 | XR ---
EXAMINATION TYPE: XR chest 2V DATE OF EXAM: 11/05/2022 COMPARISON: 04/02/2022 INDICATION: Chest pain TECHNIQUE: Frontal and lateral views of the chest are obtained. FINDINGS: The heart size is normal. The pulmonary vasculature is normal. The lungs are clear. IMPRESSION: 1. No acute pulmonary process.
[2022-11-05] MEDS ORDERED: NITROGLYCERIN SL TABS 0.4 MG TAB SUBLINGUAL PRN (15:42)
--- NOTE | 2022-11-05 15:42 | ED ---
General Adult HPI - General Chief complaint: Chest Pain Stated complaint: Chest Pain Time Seen by Provider: 11/05/22 14:00 Source: patient, family, RN notes reviewed, old records reviewed Mode of arrival: wheelchair Limitations: no limitations - History of Present Illness Initial comments: This is a 72-year-old male who presents emergency Department with left-sided chest pain. Patient states it started last evening and continues today. Patient states there is no radiation of the pain. Patient states he is mildly short of breath. Patient denies any abdominal pain patient's nausea vomiting or diarrhea. Patient denies any lightheadedness or dizziness per patient denies any palpitation. Patient states the pain is still there at this time. Patient states he had surgery on his right knee the day before . Patient denies any swelling of the legs or calf tenderness. Patient denies any fever chills. - Related Data Home Medications Medication Instructions Recorded Confirmed metFORMIN HCL [Glucophage] 1,000 mg PO HS 07/02/18 10/19/22 Atorvastatin [Lipitor] 20 mg PO HS 10/28/20 10/19/22 INSULIN LISPRO (For Pump) [humaLOG 0.01 units SQ-PUMP CONTINUOUS 10/28/20 10/19/22 (For Pump)] Clobetasol Propionate/Emoll 1 applic TOPICAL DAILY 10/05/22 10/19/22 [Clobetasol Emulsion 0.05% Foam] Methotrexate/Pf [Reditrex 25 mg/ml 50 mg SQ WEEKLY 10/05/22 10/19/22 Syringe] Aspirin 81 mg PO HS 10/19/22 10/23/22 Losartan Potassium 100 mg PO DAILY 10/23/22 10/23/22 Metoprolol Succinate [Metoprolol 25 mg PO Q24HR 10/23/22 10/23/22 Succinate ER] Previous Rx's Medication Instructions Recorded Cephalexin [Keflex] 500 mg PO Q6HR 5 Days #20 cap 10/10/22 HYDROcodone/APAP 5-325MG [[place] 1 tab PO Q6HR PRN #12 tab 10/10/22 5-325] Allergies Allergy/AdvReac Type Severity Reaction Status Date / Time No Known Allergies Allergy Verified 11/05/22 13:59 Review of Systems ROS Statement: Those systems with pertinent positive or pertinent negative responses have been documented in the HPI. ROS Other: All systems not noted in ROS Statement are negative. Past Medical History Past Medical History: Diabetes Mellitus, Hyperlipidemia, Hypertension History of Any Multi-Drug Resistant Organisms: None Reported Past Surgical History: Hernia Repair, Orthopedic Surgery Additional Past Surgical History / Comment(s): left shoulder Past Anesthesia/Blood Transfusion Reactions: Unable to Obtain Past Psychological History: No Psychological Hx Reported Smoking Status: Former smoker General Exam - General Exam Comments Initial Comments: GENERAL: Patient is well-developed and well-nourished. Patient is nontoxic and well- hydrated and is in mild distress. ENT: Neck is soft and supple. No significant lymphadenopathy is noted. Oropharynx is clear. Moist mucous membranes. Neck has full range of motion without eliciting any pain. EYES: The sclera were anicteric and conjunctiva were pink and moist. Extraocular movements were intact and pupils were equal round and reactive to light. Eyelids were unremarkable. PULMONARY: Unlabored respirations. Good breath sounds bilaterally. No audible rales rhonchi or wheezing was noted. CARDIOVASCULAR: There is a regular rate and rhythm without any murmurs gallops or rubs. ABDOMEN: Soft and nontender with normal bowel sounds. SKIN: Skin is clear with no lesions or rashes and otherwise unremarkable. NEUROLOGIC: Patient is alert and oriented x3. Cranial nerves II through XII are grossly intact. Motor and sensory are also intact. Normal speech, volume and content. Symmetrical smile. MUSCULOSKELETAL: Normal extremities with adequate strength and full range of motion. LYMPHATICS: No significant lymphadenopathy is noted PSYCHIATRIC: Normal psychiatric evaluation. Limitations: no limitations Course Vital Signs 11/05/22 11/05/22 13:59 14:39 Temperature 97.6 F 98.3 F Pulse Rate 72 63 Respiratory 16 16 Rate Blood Pressure 142/84 142/87 O2 Sat by Pulse 98 96 Oximetry Medical Decision Making - Medical Decision Making EKG was interpreted by me. EKG shows sinus rhythm at 61 bpm GA interval is on a 49 QRS is under a QT interval 470 QTC is 409 per patient's EKG shows no ST segment elevation however there are Q waves in leads II, III, and F aVF. - Lab Data Result diagrams: 11/05/22 14:38 11/05/22 14:38 Lab Results 11/05/22 11/05/22 11/05/22 Range/Units 14:38 14:38 14:38 WBC 6.7 (3.8-10.6) k/uL RBC 4.42 (4.30-5.90) m/uL Hgb 14.0 (13.0-17.5) gm/dL Hct 40.0 (39.0-53.0) % MCV 90.7 (80.0-100.0) fL MCH 31.7 (25.0-35.0) pg MCHC 35.0 (31.0-37.0) g/dL RDW 13.8 (11.5-15.5) % Plt Count 146 L (150-450) k/uL MPV 8.9 Neutrophils % 63 % Lymphocytes % 25 % Monocytes % 5 % Eosinophils % 4 % Basophils % 1 % Neutrophils # 4.2 (1.3-7.7) k/uL Lymphocytes # 1.6 (1.0-4.8) k/uL Monocytes # 0.4 (0-1.0) k/uL Eosinophils # 0.3 (0-0.7) k/uL Basophils # 0.0 (0-0.2) k/uL PT 10.9 (9.0-12.0) sec INR 1.0 (<1.2) APTT 23.4 (22.0-30.0) sec Sodium 140 (137-145) mmol/L Potassium 4.1 (3.5-5.1) mmol/L Chloride 106 (98-107) mmol/L Carbon Dioxide 25 (22-30) mmol/L Anion Gap 9 mmol/L BUN 31 H (9-20) mg/dL Creatinine 0.88 (0.66-1.25) mg/dL Est GFR (CKD-EPI)AfAm >90 (>60 ml/min/1.73 sqM) Est GFR (CKD-EPI)NonAf 85 (>60 ml/min/1.73 sqM) Glucose 227 H (74-99) mg/dL Calcium 9.5 (8.4-10.2) mg/dL Magnesium 1.5 L (1.6-2.3) mg/dL Total Bilirubin 0.4 (0.2-1.3) mg/dL AST 50 (17-59) U/L ALT 69 H (4-49) U/L Alkaline Phosphatase 90 (38-126) U/L Troponin I (0.000-0.034) ng/mL Total Protein 6.7 (6.3-8.2) g/dL Albumin 4.0 (3.5-5.0) g/dL 11/05/22 Range/Units 14:38 WBC (3.8-10.6) k/uL RBC (4.30-5.90) m/uL Hgb (13.0-17.5) gm/dL Hct (39.0-53.0) % MCV (80.0-100.0) fL MCH (25.0-35.0) pg MCHC (31.0-37.0) g/dL RDW (11.5-15.5) % Plt Count (150-450) k/uL MPV Neutrophils % % Lymphocytes % % Monocytes % % Eosinophils % % Basophils % % Neutrophils # (1.3-7.7) k/uL Lymphocytes # (1.0-4.8) k/uL Monocytes # (0-1.0) k/uL Eosinophils # (0-0.7) k/uL Basophils # (0-0.2) k/uL PT (9.0-12.0) sec INR (<1.2) APTT (22.0-30.0) sec Sodium (137-145) mmol/L Potassium (3.5-5.1) mmol/L Chloride (98-107) mmol/L Carbon Dioxide (22-30) mmol/L Anion Gap mmol/L BUN (9-20) mg/dL Creatinine (0.66-1.25) mg/dL Est GFR (CKD-EPI)AfAm (>60 ml/min/1.73 sqM) Est GFR (CKD-EPI)NonAf (>60 ml/min/1.73 sqM) Glucose (74-99) mg/dL Calcium (8.4-10.2) mg/dL Magnesium (1.6-2.3) mg/dL Total Bilirubin (0.2-1.3) mg/dL AST (17-59) U/L ALT (4-49) U/L Alkaline Phosphatase (38-126) U/L Troponin I <0.012 (0.000-0.034) ng/mL Total Protein (6.3-8.2) g/dL Albumin (3.5-5.0) g/dL Disposition Clinical Impression: Chest pain Disposition: ADMITTED IP TO THIS HOSP Referrals: Elia Acosta MD [Primary Care Provider] - 1-2 days Time of Disposition: 15:41
[2022-11-05] MEDS ORDERED: traMADol 50 MG TAB PO STA (15:58)
[2022-11-05] MEDS ORDERED: HYDROcodone/APAP 5-325MG 1 EACH TAB PO STA (15:59)
[2022-11-05 16:42] LABS: Glucose,Whole Blood 175 mg/dL (70-110)
[2022-11-05] MEDS ORDERED: ETODOLAC 400 MG TAB PO PRN (18:56)
[2022-11-05] MEDS ORDERED: HYDROcodone/APAP 5-325MG 1 EACH TAB PO PRN (18:56)
[2022-11-05] MEDS: NITROGLYCERIN OINT 1 INCH/GM PACKET TOPICAL SCH (19:25)
[2022-11-05 20:43] LABS: Glucose,Whole Blood 321 mg/dL (70-110)
[2022-11-05] MEDS ORDERED: LOSARTAN 50 MG TAB PO SCH (21:00)
[2022-11-05] MEDS ORDERED: ATORVASTATIN 20 MG TAB PO SCH (21:00)
[2022-11-05] MEDS ORDERED: METOPROLOL SUCCINATE (ER) 50 MG TAB.ER.24H PO SCH (21:00)
[2022-11-05] MEDS ORDERED: ASPIRIN 81 MG PO SCH (21:00)
[2022-11-06] MEDS: NITROGLYCERIN OINT 1 INCH/GM PACKET TOPICAL SCH ×3 (00:11→12:58)
--- NOTE | 2022-11-06 02:56 | P.HPIM ---
History of Present Illness H&P Date: 11/05/22 The patient is a 72-year-old male with a PMH of type II DM, hypertension, hyperlipidemia who presents to the emergency room with complaints of left-sided chest pain. Patient reports that his pain started gradually roughly 24 hours ago. States that the pain is aching in nature, left-sided, nonradiating, occurring every 10-15 minutes lasting for 10 seconds at a time, relieved with deep breaths, 8 out of 10 at maximal intensity, nonexertional without any associated symptoms. Patient denied experiencing shortness of breath, nausea, diaphoresis, palpitations. Chest x-ray in the emergency room was unremarkable with EKG showing sinus rhythm at 61 bpm with Q waves in leads 3 and aVF, new compared to EKG from 2019. Laboratory evaluation was remarkable for glucose 227 with troponin less than 0.012. Review of systems: Pertinent positives and negatives as discussed in HPI, a complete review of systems was performed and all other systems are negative. Physical examination: General: non toxic, no distress, appears at stated age, obese Derm: no unusual rashes/lesions, warm Head: atraumatic, normocephalic, symmetric Eyes: EOMI, no lid lag, anicteric sclera, pupils equal round reactive to light ENT: Nose and ears atraumatic Neck: No cervical lymphadenopathy, trachea midline, supple Mouth: no lip lesion, mucus membranes moist Cardiovascular: S1S2 reg, no murmur, positive dorsalis pedis pulse bilateral, no edema, no chest wall tenderness Lungs: CTA bilateral, no rhonchi, no rales, no accessory muscle use Abdominal: soft, nontender to palpation, no guarding Ext: muscle strength 5 out of 5 in all 4 extremities grossly, no gross muscle atrophy, no contractures, Neuro: CN II-XI grossly intact, no gross focal neuro deficits Psych: Alert, oriented, appropriate affect Assessment/plan Atypical chest pain -Cardiology consult -Trend troponin -Cardiac monitoring -Continue with aspirin, statin Hypomagnesemia -Replace and monitor Chronic conditions: Type II DM, hypertension, hyperlipidemia -Continue with home meds DVT prophylaxis -Heparin subcu The patient is admitted with an anticipated less than 2 midnight stay for evaluation of chest pain. CODE STATUS: Full Code Discussed with: Patient Anticipated discharge date: in am Anticipated discharge place: Home Past Medical History Past Medical History: Diabetes Mellitus, Hyperlipidemia, Hypertension History of Any Multi-Drug Resistant Organisms: None Reported Past Surgical History: Hernia Repair, Orthopedic Surgery Additional Past Surgical History / Comment(s): left shoulder, right knee scope Past Anesthesia/Blood Transfusion Reactions: Unable to Obtain Past Psychological History: No Psychological Hx Reported Smoking Status: Former smoker Past Alcohol Use History: Rare Past Drug Use History: None Reported Medications and Allergies Home Medications Medication Instructions Recorded Confirmed Type metFORMIN HCL [Glucophage] 1,000 mg PO HS 07/02/18 11/05/22 History Atorvastatin [Lipitor] 20 mg PO HS 10/28/20 11/05/22 History INSULIN LISPRO (For Pump) [humaLOG 0.01 units SQ-PUMP CONTINUOUS 10/28/20 11/05/22 History (For Pump)] Methotrexate/Pf [Reditrex 25 mg/ml 50 mg SQ COLLINS 10/05/22 11/05/22 History Syringe] Aspirin 81 mg PO HS 10/19/22 11/05/22 History Losartan Potassium 100 mg PO HS 10/23/22 11/05/22 History Clobetasol Propionate [Temovate 1 applic TOPICAL BID PRN 11/05/22 11/05/22 History 0.05% Cream] Clobetasol Propionate [Temovate 1 applic TOPICAL BID PRN 11/05/22 11/05/22 History 0.05% Oint] HYDROcodone/APAP 5-325MG [[place] 1 tab PO Q6H PRN 11/05/22 11/05/22 History 5-325] Ketorolac [Toradol] 10 mg PO Q6H PRN 11/05/22 11/05/22 History Metoprolol Succinate (ER) [Toprol 50 mg PO HS 11/05/22 11/05/22 History Xl] traMADol HCL 50 mg PO BID PRN 11/05/22 11/05/22 History Allergies Allergy/AdvReac Type Severity Reaction Status Date / Time No Known Allergies Allergy Verified 11/05/22 15:43 Physical Exam Vitals: Vital Signs Temp Pulse Pulse Resp BP BP Pulse Ox 11/05/22 19:21 94 L 11/05/22 19:03 97.9 F 64 17 139/79 95 11/05/22 17:49 97.6 F 63 20 129/82 95 11/05/22 16:00 97.9 F 61 16 156/88 95 11/05/22 14:39 98.3 F 63 16 142/87 96 11/05/22 13:59 97.6 F 72 16 142/84 98 Intake and Output 11/05/22 11/05/22 11/05/22 06:59 14:59 22:59 Other: Voiding Method Toilet # Voids 1 Weight 95.254 kg 95.254 kg Results CBC & Chem 7: 11/05/22 14:38 11/05/22 14:38 Labs: Abnormal Lab Results - Last 24 Hours (Table) 11/05/22 11/05/22 11/05/22 Range/Units 14:38 14:38 16:28 Plt Count 146 L (150-450) k/uL BUN 31 H (9-20) mg/dL Glucose 227 H (74-99) mg/dL POC Glucose (mg/dL) 175 H (70-110) mg/dL Magnesium 1.5 L (1.6-2.3) mg/dL ALT 69 H (4-49) U/L 11/05/22 Range/Units 20:41 Plt Count (150-450) k/uL BUN (9-20) mg/dL Glucose (74-99) mg/dL POC Glucose (mg/dL) 321 H (70-110) mg/dL Magnesium (1.6-2.3) mg/dL ALT (4-49) U/L Thrombosis Risk Factor Assmnt - Choose All That Apply Any of the Below Risk Factors Present?: Yes Each Factor Represents 1 point: Obesity (BMI >25) Other Risk Factors: Yes Each Risk Factor Represents 2 Points: Age 61-74 years Other congenital or acquired thrombophilia - If yes, enter type in comment: No Thrombosis Risk Factor Assessment Total Risk Factor Score: 3 Thrombosis Risk Factor Assessment Level: Moderate Risk
[2022-11-06 04:40] VITALS: RESP 18; TEMP 97.6
[2022-11-06 05:51] LABS: Glucose,Whole Blood 327 mg/dL (70-110)
[2022-11-06] MEDS: INSULIN ASPART (NovoLOG) 100 UNIT/ML VIAL SQ SCH ×2 (05:54→13:03)
[2022-11-06] MEDS ORDERED: AMINOPHYLLINE 500 MG/20 ML VIAL IV PRN (06:54)
[2022-11-06] MEDS ORDERED: CAFFEINE CITRATE 60 MG/3 ML VIAL IV PRN (06:54)
[2022-11-06] MEDS ORDERED: REGADENOSON 0.4 MG/5 ML SYRINGE IV PRN (06:54)
[2022-11-06] MEDS ORDERED: HEPARIN SODIUM,PORCINE/PF 5,000 UNIT/0.5 ML SYRINGE SQ SCH (08:00)
--- NOTE | 2022-11-06 08:45 | CA ---
Transthoracic Echo Report Name: Carlos Cohen Age: 72 Gender: M : 1950 Exam Date: 11/06/2022 07:38 Exam Location: [facility] Ht (in): 70 Wt (lb): 210 Ordering Physician: Lili Pierre Attending/Referring Phys: Meera Kyle MD ([id number]) [employer] Latosha Oconnell RDCS Procedure CPT: Indications: LVF Cardiac Hx: Technical Quality: Fair Contrast 1: Total Dose (mL): Contrast 2: Total Dose (mL): MEASUREMENTS (Male / Female) Normal Values 2D ECHO LV Diastolic Diameter PLAX 3.7 cm 4.2 - 5.9 / 3.9 - 5.3 cm LV Systolic Diameter PLAX 2.5 cm IVS Diastolic Thickness 2.2 cm 0.6 - 1.0 / 0.6 - 0.9 cm LVPW Diastolic Thickness 1.6 cm 0.6 - 1.0 / 0.6 - 0.9 cm LV Relative Wall Thickness 1.0 RV Internal Dim ED PLAX 3.4 cm LA Volume 60.2 cm??? 18 - 58 / 22 - 52 cm??? M-MODE Aortic Root Diameter MM 3.6 cm LA Systolic Diameter MM 4.0 cm LA Ao Ratio MM 1.1 AV Cusp Separation MM 2.4 cm DOPPLER AV Peak Velocity 163.8 cm/s AV Peak Gradient 10.7 mmHg AI Peak Velocity 382.3 cm/s AI Peak Gradient 58.5 mmHg AI Pressure Half Time 738.7 ms LVOT Peak Velocity 135.1 cm/s LVOT Peak Gradient 7.3 mmHg MV Area PHT 2.7 cm??? Mitral E Point Velocity 66.8 cm/s Mitral A Point Velocity 102.7 cm/s Mitral E to A Ratio 0.6 MV Deceleration Time 280.7 ms MV E' Velocity 4.8 cm/s Mitral E to MV E' Ratio 13.9 TR Peak Velocity 250.9 cm/s TR Peak Gradient 25.2 mmHg Right Ventricular Systolic Press 30.2 mmHg FINDINGS Left Ventricle Severely increased septal wall thickness. Normal left ventricular systolic function with no obvious regional wall motion abnormalities. Left ventricular ejection fraction is estimated at 55 %. Right Ventricle Normal right ventricular size and function. Right ventricular systolic pressure within normal limits. Right Atrium Normal right atrial size. Left Atrium Mildly increased left atrial volume. Mildly increased left atrial area. Mitral Valve Structurally normal mitral valve. Mild mitral regurgitation. Aortic Valve Trileaflet aortic valve. Trace to mild aortic regurgitation. Aortic valve sclerosis. Tricuspid Valve Structurally normal tricuspid valve. Mild tricuspid regurgitation. Pulmonic Valve Trace pulmonic regurgitation. Pericardium No pericardial effusion. Aorta Normal size aortic root and proximal ascending aorta. CONCLUSIONS Normal left ventricular dimension and systolic function No significant valvular abnormalities noted Previewed by: Dr. Hardik Garibay MD (Electronically Signed) Final Date: 06 November 2022 08:44
[2022-11-06] MEDS ORDERED: ASPIRIN 325 MG TAB PO SCH (09:00)
[2022-11-06 09:18] LABS: Chol/HDL Ratio 4.69 Ratio; LDL Cholesterol,Calculated 46.6 mg/dL (0.0-131.0)
--- NOTE | 2022-11-06 09:31 | P.CRDCN ---
History of Present Illness Consult date: 11/06/22 Consult reason: chest pain History of present illness: HISTORY OF PRESENT ILLNESS This is a 72-year-old male patient of Dr. Kyle with past medical history of diabetes mellitus type 2, hypertension, hyperlipidemia, psoriasis. He reports a stress test 6 months ago was normal. Patient had onset of a grabbing type chest pain while at rest. He denied having any shortness of breath, lightheadedness or dizziness. He denies any family history of coronary artery disease. He quit smoking 35 years ago. EKG is normal sinus rhythm with no acute changes Chest x-ray is normal Troponins negative 3,hemoglobin 14. Platelet count 146. Magnesium 1.5. Triglycerides 302, cholesterol 136, LDL 46, HDL 29. Echocardiogram reveals normal left ventricular dimension and systolic function. No significant valvular abnormalities Home cardiac medications: Aspirin 81 mg daily, atorvastatin 20 mg at bedtime, losartan 100 mg at bedtime, Toprol-XL 50 mg at bedtime REVIEW OF SYSTEMS at the time of my evaluation: Constitutional: No fever, no chills. No weakness, fatigue or lethargy. EENT: No headache. No dizziness. Lungs: No shortness of breath, cough, no sputum production. No wheezing. Cardiovascular: No chest pain, no lower extremity edema. No palpitations. No paroxysmal nocturnal dyspnea. No orthopnea. No lightheadedness or dizziness. No syncopal episodes. Abdominal: No abdominal pain. No nausea, vomiting. No diarrhea. No constipati on. No bloody or tarry stools.. No loss of appetite. Genitourinary: No dysuria.. No urinary retention. Musculoskeletal: No myalgias. No muscle weakness, no gait dysfunction, no frequent falls. No back pain. No neck pain. Integumentary: No wounds, no lesions. No rash or pruritus. No unusual b ruising. Neurologic: No aphasia. No facial droop. No change in mentation. No head injury. No headache. No paralysis. No paresthesia. Psychiatric: No depression. No anxiety. Endocrine: No abnormal blood sugars. PHYSICAL EXAMINATION Gen: This is a 72-year-old male. He is resting but appears to be comfortable. VS: reviewed HEENT: Head is atraumatic, normocephalic. Pupils equal, round. Sclerae is anicteric. NECK: Supple. No JVD. No lymphadenopathy. No thyromegaly. LUNGS: Clear to auscultation. No wheezes or rhonchi. No intercostal retractions. HEART: Regular rate and rhythm. No murmur. ABDOMEN: Soft. Bowel sounds are present. No masses. No tenderness. EXTREMITIES: No pedal edema. No calf tenderness. NEUROLOGICAL: Patient is awake, alert and oriented x3. Cranial nerves 2 through 12 are grossly intact. ASSESSMENT Chest pain, acute coronary syndrome ruled out diabetes mellitus type 2 Hypertension Hyperlipidemia Psoriasis PLAN Continue patient's home cardiac medications Obtain Lexiscan stress test If stress test is within normal limits, patient is cleared from cardiology for discharge home and to follow up with Dr. Kyle in 1-2 weeks Thank you kindly for this consultation. Nurse practitioner note has been reviewed, I agree with documented findings and plan of care. Patient was seen and examined.. Past Medical History Past Medical History: Diabetes Mellitus, Hyperlipidemia, Hypertension History of Any Multi-Drug Resistant Organisms: None Reported Past Surgical History: Hernia Repair, Orthopedic Surgery Additional Past Surgical History / Comment(s): left shoulder, right knee scope Past Anesthesia/Blood Transfusion Reactions: Unable to Obtain Past Psychological History: No Psychological Hx Reported Smoking Status: Former smoker Past Alcohol Use History: Rare Past Drug Use History: None Reported Medications and Allergies Home Medications Medication Instructions Recorded Confirmed Type metFORMIN HCL [Glucophage] 1,000 mg PO HS 07/02/18 11/05/22 History Atorvastatin [Lipitor] 20 mg PO HS 10/28/20 11/05/22 History INSULIN LISPRO (For Pump) [humaLOG 0.01 units SQ-PUMP CONTINUOUS 10/28/20 11/05/22 History (For Pump)] Methotrexate/Pf [Reditrex 25 mg/ml 50 mg SQ COLLINS 10/05/22 11/05/22 History Syringe] Aspirin 81 mg PO HS 10/19/22 11/05/22 History Losartan Potassium 100 mg PO HS 10/23/22 11/05/22 History Clobetasol Propionate [Temovate 1 applic TOPICAL BID PRN 11/05/22 11/05/22 History 0.05% Cream] Clobetasol Propionate [Temovate 1 applic TOPICAL BID PRN 11/05/22 11/05/22 History 0.05% Oint] HYDROcodone/APAP 5-325MG [[place] 1 tab PO Q6H PRN 11/05/22 11/05/22 History 5-325] Ketorolac [Toradol] 10 mg PO Q6H PRN 11/05/22 11/05/22 History Metoprolol Succinate (ER) [Toprol 50 mg PO HS 11/05/22 11/05/22 History Xl] traMADol HCL 50 mg PO BID PRN 11/05/22 11/05/22 History Allergies Allergy/AdvReac Type Severity Reaction Status Date / Time No Known Allergies Allergy Verified 11/05/22 15:43 Physical Exam Vitals: Vital Signs Temp Pulse Pulse Resp BP BP Pulse Ox 11/06/22 02:11 97.6 F 64 18 95/54 94 L 11/05/22 19:21 94 L 11/05/22 19:03 97.9 F 64 17 139/79 95 11/05/22 17:49 97.6 F 63 20 129/82 95 11/05/22 16:00 97.9 F 61 16 156/88 95 11/05/22 14:39 98.3 F 63 16 142/87 96 11/05/22 13:59 97.6 F 72 16 142/84 98 Intake and Output 11/05/22 11/05/22 11/06/22 14:59 22:59 06:59 Other: Voiding Method Toilet Toilet # Voids 1 1 Weight 95.254 kg 95.254 kg Results 11/05/22 14:38 11/05/22 14:38 Cardiac Enzymes 11/05/22 11/05/22 11/05/22 Range/Units 14:38 14:38 18:01 AST 50 (17-59) U/L Troponin I <0.012 <0.012 (0.000-0.034) ng/mL 11/05/22 Range/Units 21:06 AST (17-59) U/L Troponin I <0.012 (0.000-0.034) ng/mL Coagulation 11/05/22 Range/Units 14:38 PT 10.9 (9.0-12.0) sec APTT 23.4 (22.0-30.0) sec CBC 11/05/22 Range/Units 14:38 WBC 6.7 (3.8-10.6) k/uL RBC 4.42 (4.30-5.90) m/uL Hgb 14.0 (13.0-17.5) gm/dL Hct 40.0 (39.0-53.0) % Plt Count 146 L (150-450) k/uL Comprehensive Metabolic Panel 11/05/22 Range/Units 14:38 Sodium 140 (137-145) mmol/L Potassium 4.1 (3.5-5.1) mmol/L Chloride 106 (98-107) mmol/L Carbon Dioxide 25 (22-30) mmol/L BUN 31 H (9-20) mg/dL Creatinine 0.88 (0.66-1.25) mg/dL Glucose 227 H (74-99) mg/dL Calcium 9.5 (8.4-10.2) mg/dL AST 50 (17-59) U/L ALT 69 H (4-49) U/L Alkaline Phosphatase 90 (38-126) U/L Total Protein 6.7 (6.3-8.2) g/dL Albumin 4.0 (3.5-5.0) g/dL Current Medications Generic Name Dose Route Start Last Admin Trade Name Freq PRN Reason Stop Dose Admin Hydrocodone Bitart/Acetaminophen 1 each 11/05/22 18:56 11/05/22 22:39 Hydrocodone/Apap 5-325mg 1 Each Tab PO 1 each Q6H PRN Administration Pain Aspirin 81 mg 11/05/22 21:00 11/05/22 20:27 Aspirin 81 Mg PO 81 mg HS ESTELLE Administration Atorvastatin Calcium 20 mg 11/05/22 21:00 11/05/22 20:27 Atorvastatin 20 Mg Tab PO 20 mg HS ESTELLE Administration Etodolac 400 mg 11/05/22 18:56 11/05/22 22:38 Etodolac 400 Mg Tab PO 400 mg Q8H PRN Administration Pain Heparin Sodium (Porcine) 5,000 unit 11/06/22 08:00 Heparin Sodium,Porcine/Pf 5,000 Unit/0.5 Ml Syringe SQ Q8HR ESTELLE Insulin Aspart 0 unit 11/06/22 07:30 11/06/22 05:54 Insulin Aspart (Novolog) 100 Unit/Ml Vial SQ 12 unit ACHS ESTELLE Administration Protocol Losartan Potassium 100 mg 11/05/22 21:00 11/05/22 20:27 Losartan 50 Mg Tab PO 100 mg HS ESTELLE Administration Metoprolol Succinate 50 mg 11/05/22 21:00 11/05/22 20:27 Metoprolol Succinate (Er) 50 Mg Tab.Er.24h PO 50 mg HS ESTELLE Administration Nitroglycerin 0.4 mg 11/05/22 15:42 Nitroglycerin Sl Tabs 0.4 Mg Tab SUBLINGUAL Q5M PRN Chest Pain Nitroglycerin 1 inch 11/05/22 18:00 11/06/22 05:54 Nitroglycerin Oint 1 Inch/Gm Packet TOPICAL 1 inch Q6HR ESTELLE Administration Intake and Output 11/05/22 11/05/22 11/06/22 14:59 22:59 06:59 Other: Voiding Method Toilet Toilet # Voids 1 1 Weight 95.254 kg 95.254 kg Patient Weight 11/06/22 06:59 Weight 95.254 kg 11/05/22 14:38 11/05/22 14:38
[2022-11-06 10:25] VITALS: BP 145/71; PULSE 52
--- NOTE | 2022-11-06 11:59 | CA ---
Lexiscan Nuclear Stress Test Report Name: Carlos Cohen Exam Date: 11/06/2022 10:20 Exam Location: [facility] Ht (in): 70 Wt (lb): 210 BSA: 2.13 Ordering Phys: Lili Pierre Referring Phys: Meear Kyle MD Technologist: Jesus Alberto Cheng Age: 72 Gender: M : 1950 Procedure CPT: Indications: Reflex order-Stress test ICD-10 Codes: Patient History: Medications: SEE CHART Meds past 24 hrs: Pretest Chest Pain: STRESS TEST Lexiscan Protocol Exercise Duration (min:sec): 02:[address] Depressions (mm): Angina Score: Silva Score: Resting HR (bpm): 50 Peak HR (bpm): 67 Resting BP (mmHg): 141 / 77 Peak BP (mmHg): 169 / 80 MPHR: 146 Target HR: 124 % MPHR: 46 METS: 1.0 Total Dose: Peak Dose: Atropine: Double Product: 22570 BP Response: Stress Termination: PROTOCOL COMPLETE Stress Symptoms: NO SYMPTOMS Stress Summary: ECG ANALYSIS Resting ECG: Stress ECG: CONCLUSIONS Nondiagnostic electrocardiogram stress testing Please follow up on the Cardiolite portion Dr. Hardik Garibay MD (Electronically Signed) Final Date: 06 November 2022 11:58
--- NOTE | 2022-11-06 12:05 | NM ---
EXAMINATION TYPE: NM stress lexiscan cardiolite DATE OF EXAM: 11/06/2022 COMPARISON: NONE HISTORY: Chest pain TECHNIQUE: After the intravenous administration of 10.4 mCi Tc 99m Sestamibi - Cardiolite resting SP ECT images acquired 45 minutes post injection. The patient received 0.4mg Lexiscan, 25.9 mCi Tc 99m Sestamibi - Stress images obtained [address] injection FINDINGS: Review of stress and rest SPECT images demonstrates no distinct perfusion abnormality. Gated analysi s shows normal wall motion with an estimated left ventricular ejection fraction of 51% %. IMPRESSION: No scintigraphic evidence for reversible ischemia.
[2022-11-06 12:48] LABS: Glucose,Whole Blood 357 mg/dL (70-110)
--- NOTE | 2022-11-06 13:24 | P.DS ---
Providers Date of admission: 11/05/22 15:42 Expected date of discharge: 11/06/22 Attending physician: Kell Lopez MD Consults: 11/05/22 15:42 Consult Physician Urgent Consulting Provider: [facility] Consult Reason/Comments: Chest pain Do you want consulting provider notified?: Yes Primary care physician: [facility] Course: The patient is a 72-year-old male with a PMH of type II DM, hypertension, hyperlipidemia who presents to the emergency room with complaints of left-sided chest pain. Patient reports that his pain started gradually roughly 24 hours ago. States that the pain is aching in nature, left-sided, nonradiating, occurring every 10-15 minutes lasting for 10 seconds at a time, relieved with deep breaths, 8 out of 10 at maximal intensity, nonexertional without any associated symptoms. Patient denied experiencing shortness of breath, nausea, diaphoresis, palpitations. Chest x-ray in the emergency room was unremarkable with EKG showing sinus rhythm at 61 bpm with Q waves in leads 3 and aVF, new compared to EKG from 2019. Laboratory evaluation was remarkable for glucose 227 with troponin less than 0.012. Troponins were trended and ACS was ruled out. Lipid panel showed triglyceride of 302, and HDL of 29. Cardiology was consulted and recommended a stress test. Stress test was negative. Echocardiogram showed EF of 55% with no obvious regional wall motion abnormalities. Cardiology cleared the patient for discharge. Patient was seen and examined after stress test. He reports complete resolution of his chest pain. States that he has an appointment with Dr. Kyle later this week. Pertinent studies include chest x-ray, echocardiogram, stress test. General: non toxic, no distress, appears at stated age Derm: warm, dry Head: atraumatic, normocephalic, symmetric Eyes: EOMI, no lid lag, anicteric sclera Mouth: no lip lesion, mucus membranes moist Cardiovascular: S1S2 reg, no murmur Lungs: CTA bilateral, no rhonchi, no rales , no accessory muscle use Ext: no gross muscle atrophy, no edema, no contractures Neuro: no focal neuro deficits Psych: Alert, oriented, appropriate affect Discharge diagnosis: Atypical chest pain Hypomagnesemia Type II DM with hyperglycemia Chronic conditions: hypertension, hyperlipidemia Patient will be discharged home with the following instructions: Diet: Cardiac Follow up with your PCP within 1-2 days of discharge. Follow up with Cardiology Dr. Kyle with the appointment given to you. Take all medications as advised. Come back to the ED or call 911 for worsening chest pain, shortness of breath, palpitations or lightheadedness. Patient Condition at Discharge: Stable Plan - Discharge Summary Discharge Rx Participant: Yes New Discharge Prescriptions: Continue metFORMIN HCL [Glucophage] 1,000 mg PO HS INSULIN LISPRO (For Pump) [humaLOG (For Pump)] 0.01 units SQ-PUMP CONTINUOUS Atorvastatin [Lipitor] 20 mg PO HS Methotrexate/Pf [Reditrex 25 mg/ml Syringe] 50 mg SQ COLLINS Losartan Potassium 100 mg PO HS Ketorolac [Toradol] 10 mg PO Q6H PRN PRN Reason: Pain Metoprolol Succinate (ER) [Toprol XL] 50 mg PO HS Clobetasol Propionate [Temovate 0.05% Cream] 1 applic TOPICAL BID PRN PRN Reason: Skin Irritation Clobetasol Propionate [Temovate 0.05% Oint] 1 applic TOPICAL BID PRN PRN Reason: Skin Irritation Aspirin 81 mg PO HS traMADol HCL 50 mg PO BID PRN PRN Reason: Pain HYDROcodone/APAP 5-325MG [[place] 5-325] 1 tab PO Q6H PRN PRN Reason: Pain Discharge Medication List metFORMIN HCL [Glucophage] 1,000 mg PO HS 07/02/18 [History] Atorvastatin [Lipitor] 20 mg PO HS 10/28/20 [History] INSULIN LISPRO (For Pump) [humaLOG (For Pump)] 0.01 units SQ-PUMP CONTINUOUS 10/28/20 [History] Methotrexate/Pf [Reditrex 25 mg/ml Syringe] 50 mg SQ COLLINS 10/05/22 [History] Aspirin 81 mg PO HS 10/19/22 [History] Losartan Potassium 100 mg PO HS 10/23/22 [History] Clobetasol Propionate [Temovate 0.05% Cream] 1 applic TOPICAL BID PRN 11/05/22 [History] Clobetasol Propionate [Temovate 0.05% Oint] 1 applic TOPICAL BID PRN 11/05/22 [History] HYDROcodone/APAP 5-325MG [King[place] 5-325] 1 tab PO Q6H PRN 11/05/22 [History] Ketorolac [Toradol] 10 mg PO Q6H PRN 11/05/22 [History] Metoprolol Succinate (ER) [Toprol XL] 50 mg PO HS 11/05/22 [History] traMADol HCL 50 mg PO BID PRN 11/05/22 [History] Follow up Appointment(s)/Referral(s): Elia Acosta MD [Primary Care Provider] - 1-2 days Meera Kyle MD [STAFF PHYSICIAN] - 2 Weeks Activity/Diet/Wound Care/Special Instructions: Diet: Cardiac Follow up with your PCP within 1-2 days of discharge. Follow up with Cardiology Dr. Kyle with the appointment given to you. Take all medications as advised. Come back to the ED or call 911 for worsening chest pain, shortness of breath, palpitations or lightheadedness. Discharge Disposition: HOME SELF-CARE
== END 2022-11-06 13:48 | disposition home or self-care (01) ==
LOC: SUPCPDRO 13:56 → EC 13:56 → 6NMEDSUR 15:42
PROVIDERS: ADMIT Family Medicine; ATTEND Family Medicine
DX: R07.89 Other chest pain (principal); I10 Essential (primary) hypertension; E78.5 Hyperlipidemia, unspecified; E11.65 Type 2 diabetes mellitus with hyperglycemia; L40.9 Psoriasis, unspecified; E83.42 Hypomagnesemia; Z87.891 Personal history of nicotine dependence; Z79.84 Long term (current) use of oral hypoglycemic drugs; Z79.899 Other long term (current) drug therapy; Z79.4 Long term (current) use of insulin; Z96.41 Presence of insulin pump (external) (internal); Z79.82 Long term (current) use of aspirin
CPT/HCPCS: 96372; 99285; 36415; 94760; 93005; 93017; 93306; 85379; 80061; 80053; 83735; 84484; 85025; 85610; 85730; 71046; 78452; G0378 ×2; A9500; J2785; J1644

== ENCOUNTER → 2023-04-18 | Outpatient (CLI) | payer MEDICARE ==
[2023-04-18 16:08] LABS: ALT 32 U/L (10-49); AST 38 U/L (14-35); African American GFR (CKD) 85.6 (60.0-200.0); Albumin 4.1 g/dL (3.8-4.9); Albumin/Globulin Ratio 1.46 (1.60-3.17); Alkaline Phosphatase 74 U/L (41-126); Blood Urea Nitrogen 26.3 mg/dL (9.0-27.0); Calcium 9.9 mg/dL (8.7-10.3); Carbon Dioxide 26.8 mmol/L (20.0-27.5); Chloride 102 mmol/L (96-109); Chol/HDL Ratio 4.32 Ratio; Globulin 2.8 g/dL (1.6-3.3); Glucose 127 mg/dL (70-110); LDL Cholesterol,Calculated 104.6 mg/dL (0.0-131.0); Non-African American GFR(CKD) 73.8 (60.0-200.0); Potassium 4.5 mmol/L (3.5-5.5); Sodium 137 mmol/L (135-145); Total Protein 6.9 g/dL (6.2-8.2)
== END | disposition home or self-care (01) ==
LOC: LABWHC1 10:55
PROVIDERS: ATTEND Internal Medicine Interventional Cardiology
DX: E78.2 Mixed hyperlipidemia (principal)
CPT/HCPCS: 36415; 80053; 80061

== ENCOUNTER → 2023-11-13 | Outpatient (CLI) | payer MEDICARE ==
[2023-11-13 19:34] LABS: BUN/Creat Ratio 21.73 Ratio (12.00-20.00); Blood Urea Nitrogen 23.9 mg/dL (9.0-27.0); Chloride 101 mmol/L (96-109); Chol/HDL Ratio 4.14 Ratio; Glucose 225 mg/dL (70-110); LDL Cholesterol,Calculated 73.1 mg/dL (0.0-131.0); Potassium 4.9 mmol/L (3.5-5.5); Sodium 139 mmol/L (135-145)
[2023-11-13 19:35] LABS: ALT 78 U/L (10-49); AST 67 U/L (14-35); Albumin/Globulin Ratio 1.38 Ratio (1.60-3.17); Alkaline Phosphatase 96 U/L (41-126); Calcium 9.8 mg/dL (8.7-10.3); Carbon Dioxide 25.8 mmol/L (21.6-31.8); Globulin 2.9 g/dL (1.6-3.3); Total Bilirubin 0.7 mg/dL (0.3-1.2); Total Protein 6.9 g/dL (6.2-8.2)
== END | disposition home or self-care (01) ==
LOC: LABWHC1 11:56
PROVIDERS: ATTEND Internal Medicine Interventional Cardiology
DX: E78.2 Mixed hyperlipidemia (principal)
CPT/HCPCS: 36415; 80053; 80061

== ENCOUNTER 2024-03-02 14:16 | Inpatient (IN) | payer MEDICARE ==
[2024-03-02 17:40] LABS: Glucose,Whole Blood 367 mg/dL (70-110)
[2024-03-02] MEDS ORDERED: DEXTROSE 50% SYRINGE 50 ML IVP PRN ×4 (18:16→19:50)
[2024-03-02] MEDS ORDERED: hydrALAZINE HCL 20 MG/ML 1 ML VIAL IVP PRN (18:22)
[2024-03-02] MEDS ORDERED: HYDROcodone/APAP 5-325MG 1 EACH TAB PO PRN (18:26)
[2024-03-02] MEDS: HEPARIN SOD,PORK IN 0.45% NACL 25,000 UNIT in 0.45% NACL 1 250ML.BAG IV SCH (19:00)
[2024-03-02] MEDS: INSULIN ASPART (NovoLOG) 100 UNIT/ML VIAL SQ SCH ×2 (19:38→22:00)
[2024-03-02 19:40] LABS: Glucose,Whole Blood 375 mg/dL (70-110)
[2024-03-02] MEDS: IPRATROPIUM-ALBUTEROL 3 ML NEB INHALATION SCH (20:19)
[2024-03-02] MEDS: SODIUM CHLORIDE 0.9% 1,000 ML IV SCH (20:21)
[2024-03-02 20:28] LABS: INR 1.1 (<1.2)
[2024-03-02] MEDS: HEPARIN SODIUM 1,000 UN/ML (10ML VL) IV PRN (21:54)
[2024-03-02 21:58] LABS: Glucose,Whole Blood 325 mg/dL (70-110)
[2024-03-02] MEDS: ATORVASTATIN 20 MG TAB PO SCH (22:00)
[2024-03-02] MEDS: INSULIN DETEMIR (LEVEMIR) 100 UNIT/ML SYR SQ SCH (22:00)
[2024-03-03 02:12] LABS: C-Peptide 5.24 ng/mL (0.81-3.85)
[2024-03-03] MEDS: ACETAMINOPHEN TAB 325 MG TAB PO PRN (03:42)
--- NOTE | 2024-03-03 05:57 | HP ---
HISTORY AND PHYSICAL ADDENDUM: PHYSICAL EXAMINATION: LUNGS: Clear. GI: Soft. HEMATOLOGIC: 2+ edema. ASSESSMENT: Atrial fibrillation RVR, elevated troponin. Will repeat troponins, EKG. Home medications have been reordered, he is on subcu heparin. Cardiology is addressing his atrial fibrillation with RVR and elevated troponins. PROGNOSIS: Guarded. Please see further orders. MMODL / IJN: [id number] /
[2024-03-03 06:08] LABS: Glucose,Whole Blood 271 mg/dL (70-110)
[2024-03-03 07:26] LABS: ALT 67 U/L (4-49); AST 56 U/L (17-59); African American GFR (CKD) 73 (>60 ml/min/1.73 sqM); Albumin 2.5 g/dL (3.5-5.0); Alkaline Phosphatase 121 U/L (38-126); Anion Gap 10 mmol/L; Blood Urea Nitrogen 28 mg/dL (9-20); Calcium 7.9 mg/dL (8.4-10.2); Carbon Dioxide 16 mmol/L (22-30); Chloride 116 mmol/L (98-107); Glucose 292 mg/dL (74-99); Non-African American GFR(CKD) 64 (>60 ml/min/1.73 sqM); Potassium 4.2 mmol/L (3.5-5.1); Sodium 142 mmol/L (137-145); Total Bilirubin 1.5 mg/dL (0.2-1.3); Total Protein 5.1 g/dL (6.3-8.2)
[2024-03-03 07:39] LABS: INR 1.1 (<1.2); Prothrombin Time 12.1 sec (10.0-12.5)
--- NOTE | 2024-03-03 08:01 | P.CRDCN ---
History of Present Illness Consult date: 03/03/24 Chief complaint: Not feeling well History of present illness: This is a 73-year-old gentleman with a past medical history significant for diabetes and hypertension and dyslipidemia and also history of "mycosis fungoides" as well as overweight. We asked to see the patient in consultation in the intensive care unit. Please note that the patient is a somewhat poor historian. He presented to [facility] complaining of feeling weak and a lso he was experiencing what is seems to be abdominal discomfort and chest discomfort. Further investigation was performed including blood work and that revealed an acute renal failure. The patient stated that he was not eating and drinking well for the last few days. It felt that he was dehydrated. Also he underwent further investigation including troponin that came in to be abnormal. Beside that an EKG was performed and showed "atrial fibrillation". I was able to review the previous medical records from [facility] and that showed an EKG showing sinus mechanism and I did not see an EKG showing atrial fibrillation as of yet. Will contact them to fax any other EKG to confirm that he is in A- fib. Currently he is in sinus mechanism. According to the report he was started over there on Cardizem IV and he was converted to normal sinus mechanism. No history of atrial fibrillation before. Currently the patient is not experiencing any chest pain or chest discomfort. No history of coronary artery disease or congestive heart failure or any cardiac arrhythmia or atrial fibrillation before. The troponin here is elevated. The EKG from [facility] showed sinus mechanism with ST changes in the lateral leads. The physical examination reveals regular rhythm with a distant heart sounds and soft systolic murmur at the right upper sternal border with clear breathing sounds bilaterally and tender abdomen. Assessment Generalized weakness and fatigue Poor oral intake for the last few days Acute renal failure Evidence of myocardial injury Multiple comorbid conditions including diabetes and hypertension and dyslipidemia Atrial fibrillation by history Plan Rule out acute intra-abdominal process. Obtain an ultrasound of the abdomen and possible CT up to the primary care team Continue heparin IV Continue beta-maxwell and statin Add aspirin to the current medical regimen Serial cardiac enzymes An echocardiogram with Doppler Previous medical records including any EKG confirming atrial fibrillation Further recommendation to follow Past Medical History Past Medical History: Atrial Fibrillation, Cancer, Diabetes Mellitus, Hyperlipidemia, Hypertension Additional Past Medical History / Comment(s): aib new 03/02/24, skin ca History of Any Multi-Drug Resistant Organisms: None Reported Past Surgical History: Hernia Repair, Orthopedic Surgery Additional Past Surgical History / Comment(s): left shoulder, right knee scope Past Anesthesia/Blood Transfusion Reactions: Unable to Obtain Smoking Status: Former smoker Medications and Allergies Home Medications Medication Instructions Recorded Confirmed Type Atorvastatin [Lipitor] 20 mg PO HS 10/28/20 03/02/24 History INSULIN LISPRO (For Pump) [humaLOG 0.01 units SQ-PUMP CONTINUOUS 10/28/20 03/02/24 History (For Pump)] Losartan Potassium 100 mg PO DAILY 10/23/22 03/02/24 History Metoprolol Succinate (ER) [Toprol 50 mg PO DAILY 11/05/22 03/02/24 History XL] Furosemide [Lasix] 20 mg PO Q2D 03/02/24 03/02/24 History Gabapentin [Neurontin] 300 mg PO HS 03/02/24 03/02/24 History Ondansetron Odt [Zofran Odt] 8 mg PO Q8HR PRN 03/02/24 03/02/24 History Prochlorperazine [Compazine] 10 mg PO Q6H PRN 03/02/24 03/02/24 History hydroCHLOROthiazide [Hydrodiuril] 25 mg PO DAILY 03/02/24 03/02/24 History Allergies Allergy/AdvReac Type Severity Reaction Status Date / Time No Known Allergies Allergy Verified 11/05/22 15:43 Physical Exam Vitals: Vital Signs Temp Pulse Pulse Resp BP BP Pulse Ox 03/03/24 07:00 102 H 26 H 141/91 03/03/24 06:00 131/109 03/03/24 05:00 98 25 H 131/109 03/03/24 04:00 98.6 F 103 H 105 H 28 H 131/109 141/91 96 03/03/24 03:00 104 H 12 114/73 03/03/24 02:00 97 27 H 114/73 03/03/24 01:00 114/73 03/03/24 00:28 95 28 H 114/73 03/03/24 00:00 98.2 F 92 27 H 114/73 03/02/24 23:00 93 25 H 03/02/24 22:18 93 18 114/73 03/02/24 21:00 99.3 F 84 25 H 157/84 95 03/02/24 20:00 86 125/69 03/02/24 19:00 85 114/73 03/02/24 18:00 114/73 03/02/24 17:50 82 24 94 L 03/02/24 17:40 98.4 F 89 14 114/73 95 Intake and Output 03/02/24 03/03/24 03/03/24 22:59 06:59 14:59 Intake Total 774.827 7840 125 Output Total 1 0 Balance 215.295 2482 125 Intake: IV 500 1000 125 Sodium Chloride 0.9% 1, 500 1000 125 000 ml @ 125 mls/hr IV . Q8H ESTELLE Rx#:[id number] Intake, IV Titration 25.347 Amount Heparin Sod,Pork in 0.45% 25.347 NaCl 25,000 unit In 0.45 % NaCl 1 250ml.bag @ 9. 524 UNITS/KG/HR 10 mls/hr IV .Q24H ESTELLE Rx#: [id number] Oral 100 Output: Urine 1 0 Other: # Voids 1 1 # Bowel Movements 1 0 Weight 105 kg 106.3 kg Results 03/03/24 05:41 Cardiac Enzymes 03/02/24 03/03/24 Range/Units 20:01 05:41 AST 56 (17-59) U/L Troponin I 1.790 H* (0.000-0.034) ng/mL Coagulation 03/02/24 03/02/24 03/03/24 Range/Units 20:01 20:01 05:41 PT 12.0 12.1 (10.0-12.5) sec APTT 36.8 H (22.0-30.0) sec 03/03/24 Range/Units 05:41 PT (10.0-12.5) sec APTT 48.0 H (22.0-30.0) sec Comprehensive Metabolic Panel 03/03/24 Range/Units 05:41 Sodium 142 (137-145) mmol/L Potassium 4.2 (3.5-5.1) mmol/L Chloride 116 H (98-107) mmol/L Carbon Dioxide 16 L (22-30) mmol/L BUN 28 H (9-20) mg/dL Creatinine 1.13 (0.66-1.25) mg/dL Glucose 292 H (74-99) mg/dL Calcium 7.9 L (8.4-10.2) mg/dL AST 56 (17-59) U/L ALT 67 H (4-49) U/L Alkaline Phosphatase 121 (38-126) U/L Total Protein 5.1 L (6.3-8.2) g/dL Albumin 2.5 L (3.5-5.0) g/dL Current Medications Generic Name Dose Route Start Last Admin Trade Name Freq PRN Reason Stop Dose Admin Acetaminophen 650 mg 03/03/24 03:28 03/03/24 03:42 Acetaminophen Tab 325 Mg Tab PO 650 mg Q4HR PRN Administration Fever and/ or Pain Hydrocodone Bitart/Acetaminophen 1 each 03/02/24 18:26 Hydrocodone/Apap 5-325mg 1 Each Tab PO Q6HR PRN Pain Albuterol/Ipratropium 3 ml 03/02/24 20:00 03/02/24 20:19 Ipratropium-Albuterol 3 Ml Neb INHALATION Not Given RT-QID ESTELLE Atorvastatin Calcium 20 mg 03/02/24 21:00 03/02/24 22:00 Atorvastatin 20 Mg Tab PO 20 mg HS ESTELLE Administration Dapagliflozin 5 mg 03/03/24 09:00 Dapagliflozin Propanediol 5 Mg Tablet PO DAILY ESTELLE Dextrose/Water 25 ml 03/02/24 18:16 Dextrose 50% Syringe 50 Ml IVP PER PROTOCOL PRN Hypoglycemia Protocol Dextrose/Water 50 ml 03/02/24 18:16 Dextrose 50% Syringe 50 Ml IVP PER PROTOCOL PRN Hypoglycemia Protocol Dextrose/Water 25 ml 03/02/24 19:50 Dextrose 50% Syringe 50 Ml IVP PER PROTOCOL PRN Hypoglycemia Protocol Dextrose/Water 50 ml 03/02/24 19:50 Dextrose 50% Syringe 50 Ml IVP PER PROTOCOL PRN Hypoglycemia Protocol Heparin Sodium (Porcine) 0 unit 03/02/24 18:46 03/02/24 21:54 Heparin Sodium 1,000 Un/Ml (10ml Vl) IV 2,625 unit PER PROTOCOL PRN Administration Low PTT Protocol Hydralazine HCl 10 mg 03/02/24 18:22 Hydralazine Hcl 20 Mg/Ml 1 Ml Vial IVP Q6HR PRN Blood Pressure - High Heparin Sodium/Sodium Chloride 250 mls @ 10 mls/hr 03/02/24 19:00 03/02/24 21:49 25,000 unit/ Sodium Chloride IV 10.57 units/kg/hr .Q24H ESTELLE 11.099 mls/hr Titration Protocol 9.524 UNITS/KG/HR Sodium Chloride 1,000 mls @ 125 mls/hr 03/02/24 20:15 03/03/24 06:13 Saline 0.9% IV 125 mls/hr .Q8H ESTELLE Administration Insulin Aspart 10 unit 03/02/24 18:53 03/03/24 06:14 Insulin Aspart (Novolog) 100 Unit/Ml Vial SQ 10 unit AC-TID ESTELLE Administration Insulin Aspart 0 unit 03/02/24 21:00 03/03/24 06:14 Insulin Aspart (Novolog) 100 Unit/Ml Vial SQ 9 unit ACHS ESTELLE Administration Protocol Insulin Detemir 32 unit 03/02/24 21:00 03/02/24 22:00 Insulin Detemir (Levemir) 100 Unit/Ml Syr 0.3 unit/kg (32 unit) 32 unit SQ Administration HS ESTELLE Losartan Potassium 100 mg 03/03/24 09:00 Losartan 50 Mg Tab PO DAILY ESTELLE Metoprolol Succinate 50 mg 03/02/24 18:30 Metoprolol Succinate (Er) 50 Mg Tab.Er.24h PO DAILY ESTELLE Intake and Output 03/02/24 03/03/24 03/03/24 22:59 06:59 14:59 Intake Total 318.097 6520 125 Output Total 1 0 Balance 222.637 7534 125 Intake: IV 500 1000 125 Sodium Chloride 0.9% 1, 500 1000 125 000 ml @ 125 mls/hr IV . Q8H ESTELLE Rx#:[id number] Intake, IV Titration 25.347 Amount Heparin Sod,Pork in 0.45% 25.347 NaCl 25,000 unit In 0.45 % NaCl 1 250ml.bag @ 9. 524 UNITS/KG/HR 10 mls/hr IV .Q24H ESTELLE Rx#: [id number] Oral 100 Output: Urine 1 0 Other: # Voids 1 1 # Bowel Movements 1 0 Weight 105 kg 106.3 kg 03/03/24 05:41
[2024-03-03 08:10] LABS: HCT 31.6 % (39.0-53.0); HGB 11.1 gm/dL (13.0-17.5); MCH 33.2 pg (25.0-35.0); MCHC 35.2 g/dL (31.0-37.0); MCV 94.3 fL (80.0-100.0); Mean Platelet Volume 11.7; Platelet Count 109 k/uL (150-450); RBC 3.35 m/uL (4.30-5.90); RDW 13.7 % (11.5-15.5); WBC 3.3 k/uL (3.8-10.6)
[2024-03-03] MEDS: LOSARTAN 50 MG TAB PO SCH (09:14)
[2024-03-03] MEDS: DAPAGLIFLOZIN PROPANEDIOL 5 MG TABLET PO SCH (09:15)
[2024-03-03] MEDS: ASPIRIN 81 MG PO SCH (09:15)
[2024-03-03] MEDS: METOPROLOL SUCCINATE (ER) 50 MG TAB.ER.24H PO SCH (09:15)
--- NOTE | 2024-03-03 09:43 | CT ---
EXAMINATION TYPE: CT chest wo con DATE OF EXAM: 03/02/2024 COMPARISON: Radiograph 08/20/2023 HISTORY: 73-year-old male COPD, SOB. TECHNIQUE: CT of the chest without IV contrast. Coronal/sagittal reconstructions performed. CT DLP: 714.6mGycm. Automatic exposure control utilized for a dose reduction. FINDINGS: The heart is normal size without pericardial effusion. Mild LAD and RCA coronary artery calcification s are noted. Ascending aorta aneurysmal at 4.3 cm. Compensatory vessel branching anatomy. Ectatic upper descending thoracic aorta 3.4 cm. Large caliber to the main right and left pulmonary arteries measuring up to 3.1 cm each suggesting un derlying pulmonary arterial hypertension. No thoracic lymphadenopathy by CT size criteria. There are trace bilateral pleural effusions. Minimal groundglass change right apex and mild septal li antonio at the lung bases. Some focal opacity is noted at the inferior lingula. Visualized upper abdomen shows low-attenuation hepatic parenchyma. Possible subtle contour nodularity of the liver. Bones: DISH throughout the mid and lower thoracic spine. IMPRESSION: 1. Pulmonary arterial hypertension with trace bilateral pleural effusions. Correlate to exclude early cardiac decompensation or fluid overload state. 2. Patchy groundglass in the right apex and focal opacity at the inferior lingula. Findings could rep resent atelectasis, patchy pulmonary edema, or less likely pneumonia. Correlate with symptoms. 3. Severe hepatic steatosis. Possible subtle early cirrhosis. 4. Aneurysmal ascending aorta at 4.3 cm.
[2024-03-03 10:05] LABS: Appearance,Urine Clear (Clear); Bilirubin,Urine Negative (Negative); Blood,Urine Negative (Negative); Color,Urine Yellow; Glucose,Urine (UA) 3+ (Negative); Ketones,Urine Trace (Negative); Leukocyte Esterase,Urine Trace (Negative); Mucus,Urine Rare /hpf; Nitrite,Urine Negative (Negative); PH, Urine 5.5 (5.0-8.0); Protein,Urine Trace (Negative); RBC,Urine 2 /hpf (0-5); Specific Gravity,Urine 1.017 (1.001-1.035); Urobilinogen,Urine <2.0 mg/dL (<2.0); WBC,Urine 2 /hpf (0-5)
[2024-03-03 11:40] LABS: Glucose,Whole Blood 278 mg/dL (70-110)
[2024-03-03 11:44] VITALS: BMI 33.6
--- NOTE | 2024-03-03 13:01 | P.CNPUL ---
History of Present Illness Consult date: 03/03/24 Requesting physician: Ferny Medrano Reason for consult: other (Weakness and chest discomfort) Chief complaint: Weakness and chest discomfort, abdominal discomfort History of present illness: This is a 73-year-old female whom I see in the office on a regular basis. I have seen this patient for his multiple medical problems including diabetes, hypertension, and history of mycosis fungoides. Patient also sees Dr. Kyle on a regular basis, and he sees the spring coverer and the melter loader also on a regular basis. Patient was transferred yesterday from [facility], apparently he presented to the hospital with weakness, fatigue, some vague chest discomfort and abdominal discomfort. Patient has not been eating and drinking much for the last few days, and he was felt to be dehydrated. Underwent further investigation at [facility], and his EKG showed atrial fibrillation with RVR. Patient was given Cardizem bolus and placed on Cardizem drip, and he converted to sinus rhythm. Troponins were noted to be elevated, hence arrangements were made to transfer the patient to [facility]. Patient was supposed to go to 3 . however he was admitted to the ICU as an overflow. I saw this patient today, and I have known this patient for many years. He is he feels generally weak, has some vague abdominal discomfort and chest discomfort. Does not seem to be in any distress. Patient is receiving:, He is on room air, receiving fluids in the form of 0.9 normal saline at 125 cc/h, he has some vague abdominal discomfort and abdominal ultrasound is pending. Patient was seen by cardiology and The patient on heparin for now because of his elevated troponin. Patient had no previous documented history of atrial fibrillation, and no history of underlying coronary artery disease. EKG on admission showed sinus rhythm, nonspecific ST changes in the lateral leads. Labs this morning show WBC count of 3.3 hemoglobin 11.1 basic metabolic profile is normal bicarb is a bit low at 16 anion gap is normal BUN is 28 creatinine 1.13, troponin this morning is trending down to 0.[address] of the chest showed some pulmonary vascular prominence and small bilateral pleural effusions Review of Systems REVIEW OF SYSTEMS: CONSTITUTIONAL: Generalized weakness. No fever no chills EYES: Negative. ENT: Negative. CARDIAC: As noted in HPI PULMONARY: Shortness of breath but he has some vague chest discomfort GI: Vague abdominal discomfort which is chronic GENITOURINARY: Negative. MUSCULOSKELETAL: Negative. SKIN: History of mycosis fungoides following with dermatology NEUROPSYCH: Negative. ENDOCRINE: Negative. HEMATOLOGIC: Negative. Past Medical History Past Medical History: Atrial Fibrillation, Cancer, Diabetes Mellitus, Hyperlipidemia, Hypertension Additional Past Medical History / Comment(s): aib new 03/02/24, skin ca History of Any Multi-Drug Resistant Organisms: None Reported Past Surgical History: Hernia Repair, Orthopedic Surgery Additional Past Surgical History / Comment(s): left shoulder, right knee scope Past Anesthesia/Blood Transfusion Reactions: Unable to Obtain Smoking Status: Former smoker Medications and Allergies Home Medications Medication Instructions Recorded Confirmed Type Atorvastatin [Lipitor] 20 mg PO HS 10/28/20 03/02/24 History INSULIN LISPRO (For Pump) [humaLOG 0.01 units SQ-PUMP CONTINUOUS 10/28/20 03/02/24 History (For Pump)] Losartan Potassium 100 mg PO DAILY 10/23/22 03/02/24 History Metoprolol Succinate (ER) [Toprol 50 mg PO DAILY 11/05/22 03/02/24 History XL] Furosemide [Lasix] 20 mg PO Q2D 03/02/24 03/02/24 History Gabapentin [Neurontin] 300 mg PO HS 03/02/24 03/02/24 History Ondansetron Odt [Zofran Odt] 8 mg PO Q8HR PRN 03/02/24 03/02/24 History Prochlorperazine [Compazine] 10 mg PO Q6H PRN 03/02/24 03/02/24 History hydroCHLOROthiazide [Hydrodiuril] 25 mg PO DAILY 03/02/24 03/02/24 History Allergies Allergy/AdvReac Type Severity Reaction Status Date / Time No Known Allergies Allergy Verified 11/05/22 15:43 Physical Exam Vitals: Vital Signs Temp Pulse Pulse Resp BP BP Pulse Ox 03/03/24 12:00 98.2 F 89 22 116/96 93 L 03/03/24 11:00 89 25 H 136/82 94 L 03/03/24 10:00 90 25 H 136/82 93 L 03/03/24 09:00 106 H 16 136/82 03/03/24 08:00 99.0 F 103 H 105 H 18 141/91 136/82 94 L 03/03/24 07:00 102 H 26 H 141/91 03/03/24 06:00 131/109 03/03/24 05:00 98 25 H 131/109 03/03/24 04:00 98.6 F 103 H 105 H 28 H 131/109 141/91 96 03/03/24 03:00 104 H 12 114/73 03/03/24 02:00 97 27 H 114/73 03/03/24 01:00 114/73 03/03/24 00:28 95 28 H 114/73 03/03/24 00:00 98.2 F 92 27 H 114/73 03/02/24 23:00 93 25 H 03/02/24 22:18 93 18 114/73 03/02/24 21:00 99.3 F 84 25 H 157/84 95 03/02/24 20:00 86 125/69 03/02/24 19:00 85 114/73 03/02/24 18:00 114/73 03/02/24 17:50 82 24 94 L 03/02/24 17:40 98.4 F 89 14 114/73 95 Intake and Output 03/02/24 03/03/24 03/03/24 22:59 06:59 14:59 Intake Total 384.961 7505 775 Output Total 1 0 570 Balance 601.296 0356 205 Intake: IV 500 1000 375 Sodium Chloride 0.9% 1, 500 1000 375 000 ml @ 125 mls/hr IV . Q8H ESTELLE Rx#:[id number] Intake, IV Titration 25.347 Amount Heparin Sod,Pork in 0.45% 25.347 NaCl 25,000 unit In 0.45 % NaCl 1 250ml.bag @ 9. 524 UNITS/KG/HR 10 mls/hr IV .Q24H ESTELLE Rx#: [id number] Oral 100 400 Output: Urine 1 0 570 Other: # Voids 1 1 # Bowel Movements 1 0 Weight 105 kg 106.3 kg 106.3 kg General: Reveals 73-year-old white male in no distress, on room air. Skin: Multiple dry scaly lesions noted in the face and in the lower extremities. Eye: Pupils are equal, round and reactive to light, extra-ocular movements are intact; there is normal conjunctiva bilaterally. Ears, nose, mouth and throat: There are moist mucous membranes and no oral lesions. Neck: The neck is supple, there is no tenderness or JVD. Cardiovascular: There is a regular rate and rhythm. No murmur, rub or gallop is appreciated. Respiratory: Clear bilaterally no rhonchi no wheezes Gastrointestinal: Soft, non-distended, non-tender abdomen without masses or organomegaly noted. There is no rebound or guarding present. Bowel sounds are unremarkable. Musculoskeletal: No deformities and no limitation range of motion Neurological: Alert and oriented x 3 no gross focal deficit. Psychiatric: Cooperative, appropriate mood & affect, normal judgment. Results - Laboratory Findings CBC and BMP: 03/03/24 05:41 03/03/24 05:41 PT/INR, D-dimer PT 12.1 sec (10.0-12.5) 03/03/24 05:41 INR 1.1 (<1.2) 03/03/24 05:41 Abnormal lab findings: Abnormal Labs 03/02/24 03/02/24 03/02/24 17:39 18:42 18:42 WBC RBC Hgb Hct Plt Count APTT Chloride Carbon Dioxide BUN Glucose POC Glucose (mg/dL) 367 H Hemoglobin A1c 10.2 H C-Peptide 5.24 H Calcium Total Bilirubin ALT Troponin I Total Protein Albumin Urine Protein Urine Glucose (UA) Urine Ketones Ur Leukocyte Esterase Urine Mucus 03/02/24 03/02/24 03/02/24 19:37 20:01 20:01 WBC RBC Hgb Hct Plt Count APTT 36.8 H Chloride Carbon Dioxide BUN Glucose POC Glucose (mg/dL) 375 H Hemoglobin A1c C-Peptide Calcium Total Bilirubin ALT Troponin I 1.790 H* Total Protein Albumin Urine Protein Urine Glucose (UA) Urine Ketones Ur Leukocyte Esterase Urine Mucus 03/02/24 03/03/24 03/03/24 21:57 05:41 05:41 WBC 3.3 L RBC 3.35 L Hgb 11.1 L Hct 31.6 L Plt Count 109 L APTT Chloride Carbon Dioxide BUN Glucose POC Glucose (mg/dL) 325 H Hemoglobin A1c 10.0 H C-Peptide Calcium Total Bilirubin ALT Troponin I Total Protein Albumin Urine Protein Urine Glucose (UA) Urine Ketones Ur Leukocyte Esterase Urine Mucus 03/03/24 03/03/24 03/03/24 05:41 05:41 06:06 WBC RBC Hgb Hct Plt Count APTT 48.0 H Chloride 116 H Carbon Dioxide 16 L BUN 28 H Glucose 292 H POC Glucose (mg/dL) 271 H Hemoglobin A1c C-Peptide Calcium 7.9 L Total Bilirubin 1.5 H ALT 67 H Troponin I Total Protein 5.1 L Albumin 2.5 L Urine Protein Urine Glucose (UA) Urine Ketones Ur Leukocyte Esterase Urine Mucus 03/03/24 03/03/24 03/03/24 09:11 09:14 11:38 WBC RBC Hgb Hct Plt Count APTT Chloride Carbon Dioxide BUN Glucose POC Glucose (mg/dL) 278 H Hemoglobin A1c C-Peptide Calcium Total Bilirubin ALT Troponin I 0.866 H* Total Protein Albumin Urine Protein Trace H Urine Glucose (UA) 3+ H Urine Ketones Trace H Ur Leukocyte Esterase Trace H Urine Mucus Rare H - Diagnostic Findings CT scan - chest: image reviewed (As noted in HPI) Assessment and Plan Assessment: Impression: New onset atrial fibrillation with RVR resolved after Cardizem bolus. Acute non-ST elevation myocardial infarction Acute dehydration, most likely secondary to poorly controlled diabetes and decreased p.o. intake. Acute kidney injury probably related to dehydration Type 2 diabetes. Abdominal pain, chronic, ultrasound of the abdomen is pending may consider CT of the chest for Commendation: Continue IV heparin Continue beta-blockers Continue aspirin Resume home meds and diabetes medications Cautious hydration Awaiting echocardiogram and Doppler Could transfer the patient to [facility]. once a bed is available Will continue to follow. Will continue to monitor renal status. Time with Patient: Greater than 30
[2024-03-03 14:31] LABS: Band Neutrophils % 1 %; Lymphocytes # (M) 0.53 k/uL (1.0-4.8); Monocytes # (M) 0.83 k/uL (0-1.0); Neutrophils % (M) 55 %; Nucleated Red Blood Cells 0 /100 WBC (0-0); Total Cells Counted 100
[2024-03-03 14:32] LABS: RBC Morphology Normal
--- NOTE | 2024-03-03 15:41 | US ---
EXAMINATION TYPE: US abdomen complete DATE OF EXAM: 03/03/2024 COMPARISON: NONE CLINICAL INDICATION: Male, 73 years old with history of abdominal discomfort; Abd pain last night. TECHNIQUE: Multiple sonographic images of the abdomen are obtained. 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 Visualized portions appear WNL. Mildly enlarged Gallbladder: Limited visualization. No definitive stone seen Evidence for sonographic Londono's sign: No CBD: Not clearly visualized Spleen: Not clearly visualized Right Kidney: No hydronephrosis or masses seen as best visualized today Left Kidney: No hydronephrosis or masses seen as best visualized today Upper IVC: Prox wnl as best seen Abd Aorta: Obscured by overlying bowel gas IMPRESSION: 1. Hepatomegaly. 2. Limited examination due to excessive bowel gas.
[2024-03-03 16:55] LABS: Glucose,Whole Blood 256 mg/dL (70-110)
--- NOTE | 2024-03-03 17:12 | CA ---
Transthoracic Echo Report Name: Carlos Cohen Age: 73 Gender: M : 1950 Exam Date: 03/03/2024 07:11 Exam Location: [facility] Ht (in): 70 Wt (lb): 231 Ordering Physician: Ferny Medrano MD Attending/Referring Phys: Field Party Manager Melvi Richmond RDCS Procedure CPT: Indications: afib Cardiac Hx: Technical Quality: Fair Contrast 1: Total Dose (mL): Contrast 2: Total Dose (mL): MEASUREMENTS (Male / Female) Normal Values 2D ECHO LV Diastolic Diameter PLAX 5.1 cm 4.2 - 5.9 / 3.9 - 5.3 cm LV Systolic Diameter PLAX 3.3 cm IVS Diastolic Thickness 1.5 cm 0.6 - 1.0 / 0.6 - 0.9 cm LVPW Diastolic Thickness 1.3 cm 0.6 - 1.0 / 0.6 - 0.9 cm LV Relative Wall Thickness 0.6 RV Internal Dim ED PLAX 3.0 cm LV Diastolic Volume MOD 4C 79.5 cm??? LV Systolic Volume MOD 4C 31.9 cm??? LV Ejection Fraction MOD 4C 59.9 % LV Cardiac Index MOD 4C 1937.2 cm???/min???m??? LV Diastolic Length 4C 7.6 cm LV Systolic Length 4C 7.1 cm M-MODE Aortic Root Diameter MM 3.4 cm LA Systolic Diameter MM 5.0 cm LA Ao Ratio MM 1.5 DOPPLER Mitral E Point Velocity 59.6 cm/s Mitral A Point Velocity 99.0 cm/s Mitral E to A Ratio 0.6 MV Deceleration Time 312.3 ms MV E' Velocity 7.2 cm/s Mitral E to MV E' Ratio 8.3 TR Peak Velocity 248.7 cm/s TR Peak Gradient 24.7 mmHg FINDINGS Left Ventricle Left ventricular ejection fraction is estimated at 65-70%. Moderately increased septal wall thickness. Left ventricular cavity size normal. No obvious regional wall motion abnormalities. Right Ventricle Normal right ventricular size and function. Right ventricular systolic pressure within normal limits. Right Atrium Normal right atrial size. Left Atrium Moderate left atrial dilatation. Mitral Valve Mitral valve thickened. Mild mitral regurgitation. No mitral stenosis. No evidence for mitral valve prolapse. Aortic Valve Trileaflet aortic valve. Thickened aortic valve without stenosis. No aortic regurgitation. Increased LVOT gradient peak gradient 26mmHg. Tricuspid Valve Structurally normal tricuspid valve. Mild tricuspid regurgitation. Pulmonic Valve Structurally normal pulmonic valve. Trace pulmonic regurgitation. Pericardium No pericardial effusion. Aorta Normal size aortic root and proximal ascending aorta. CONCLUSIONS Normal LV function left ventricular outflow tract gradient of 26 mm Mild mitral regurgitation Aortic sclerosis without any stenosis Previewed by: Dr. Thomas Kasper MD (Electronically Signed) Final Date: 03 March 2024 17:11
[2024-03-03 20:26] LABS: Glucose,Whole Blood 222 mg/dL (70-110)
--- NOTE | 2024-03-03 23:19 | CT ---
EXAM: CT Abdomen Without Intravenous Contrast CLINICAL HISTORY: abd pain TECHNIQUE: Axial computed tomography images of the abdomen without intravenous contrast. CTDI is 23.3 mGy and DLP is 1073.9 mGy-cm. This CT exam was performed using one or more of the following dose reduction techniques: automated exposure control, adjustment of the mA and/or kV according to patient size, and/or use of iterative reconstruction technique. COMPARISON: No relevant prior studies available. FINDINGS: Lung bases: Unremarkable. No mass. No consolidation. Pleural space: Very small bilateral pleural effusions. Liver: Hepatic steatosis. Gallbladder and bile ducts: Unremarkable. No calcified stones. No ductal dilation. Pancreas: Unremarkable. No ductal dilation. Spleen: Unremarkable. No splenomegaly. Adrenals: Unremarkable. No mass. Kidneys and ureters: Nonobstructing 21 x 10 x 20 mm calculus in the left kidney. No hydronephrosis or ureteral calculus. Stomach and bowel: There is increased edema in the fat surrounding the right colon. This may represent a nonspecific colitis. Diverticula are not seen in the region. No obstruction. Appendix: The appendix was not identified, as the pelvis was not scanned. Intraperitoneal space: Unremarkable. No free air. No significant fluid collection. Bones/joints: No acute fracture. No dislocation. Soft tissues: Unremarkable. Vasculature: Unremarkable. No abdominal aortic aneurysm. Lymph nodes: Unremarkable. No enlarged lymph nodes. IMPRESSION: Edema in the fat surrounding the right colon which may represent a nonspecific colitis. Large nonobstructing left renal calculus. No hydronephrosis or ureteral calculus.
--- NOTE | 2024-03-04 05:45 | PN ---
PROGRESS NOTE SUBJECTIVE: He was sent down here for atrial fibrillation. He has been in sinus rhythm since he has been here, awaiting for cardiology to assess him to see what they are going to do. He is on blood thinners for the IV. Abdominal ultrasound shows hepatomegaly. He has had abdominal CT which is essentially non-obstructing kidney stones and given the fat surrounding the right colon, possibly colitis of large nonobstructing left ureteral calculus. OBJECTIVE: VITAL SIGNS: Temperature 98.6, pulse 80s and regular, respiratory rate 20 to 26, O2 94 to 97 on room air. CAT scan reviewed. Cardiology consult reviewed. Pulmonary consult reviewed. ASSESSMENT: Generalized weakness, fatigue, history of atrial fibrillation, history of chronic renal insufficiency, mild dehydration, diabetes, hypertension, dyslipidemia, history of atrial fibrillation, rule out abdominal process. Consider current treatment for his diabetes. Home medications have been reordered. Prognosis is guarded. Wait for pulmonary and cardiology recommendation, possibly go home depending on them. Please see further orders. MMODL / IJN: [id number] /
[2024-03-04 06:16] LABS: Glucose,Whole Blood 260 mg/dL (70-110)
[2024-03-04 06:18] LABS: HCT 30.1 % (39.0-53.0); MCH 34.2 pg (25.0-35.0); MCHC 36.7 g/dL (31.0-37.0); MCV 93.4 fL (80.0-100.0); Mean Platelet Volume 8.9; Platelet Count 115 k/uL (150-450); RBC 3.22 m/uL (4.30-5.90); RDW 13.9 % (11.5-15.5); WBC 3.9 k/uL (3.8-10.6)
[2024-03-04 11:48] LABS: Glucose,Whole Blood 282 mg/dL (70-110)
--- NOTE | 2024-03-04 12:17 | P.PN ---
Subjective HISTORY OF PRESENT ILLNESS: This is a 73-year-old gentleman with a past medical history significant for diabetes and hypertension and dyslipidemia and also history of "mycosis fungoides" as well as overweight. We asked to see the patient in consultation in the intensive care unit. Please note that the patient is a somewhat poor historian. He presented to [facility] complaining of feeling weak and also he was experiencing what is seems to be abdominal discomfort and chest discomfort. Further investigation was performed including blood work and that revealed an acute renal failure. The patient stated that he was not eating and drinking well for the last few days. It felt that he was dehydrated. Also he underwent further investigation including troponin that came in to be abnormal. Beside that an EKG was performed and showed "atrial fibrillation". I was able to review the previous medical records from [facility] and that showed an EKG showing sinus mechanism and I did not see an EKG showing atrial fibrillation as of yet. Will contact them to fax any other EKG to confirm that he is in A- fib. Currently he is in sinus mechanism. According to the report he was started over there on Cardizem IV and he was converted to normal sinus mechanism. No history of atrial fibrillation before. Currently the patient is not experiencing any chest pain or chest discomfort. No history of coronary artery disease or congestive heart failure or any cardiac arrhythmia or atrial fibrillation before. The troponin here is elevated. The EKG from [facility] showed sinus mechanism with ST changes in the lateral leads. The physical examination reveals regular rhythm with a distant heart sounds and soft systolic murmur at the right upper sternal border with clear breathing sounds bilaterally and tender abdomen. 03/04/2024 Patient examined this morning at the bedside. Patient denies chest pain or pressure. He denies SOB. He continues to report abdominal pain. Abdominal ultrasound reveals edema in the fat surrounding the right colon which may represent nonspecific colitis. Large nonobstructing left renal calculus. No hydronephrosis or ureteral calculus. Echocardiogram completed revealing ejection fraction 65 to 70% with mild MR. Telemetry reveals atrial fibrillation. No EKG from [facility] has been received. PHYSICAL EXAM: VITAL SIGNS: Reviewed. GENERAL: Well-developed in no acute distress. NECK: Supple. No JVD or thyromegaly LUNGS: Respirations even and unlabored. Lungs essentially clear to auscultation bilaterally. HEART: Regular rate and rhythm. S1 and S2 heard. EXTREMITIES: Normal range of motion. No clubbing or cyanosis. Peripheral pulses intact. No lower extremity edema ASSESSMENT: Generalized weakness Decreased oral intake Abdominal pain Possible colitis, per CT scan Questionable atrial fibrillation at outside facility, patient has been in SR since admission Elevated troponins, Type I versus Type II IA Acute renal failure, resolved Hypertension Hyperlipidemia Diabetes Mycosis fungoides, on chemo outpatient PLAN: Continue current cardiac medications Continue IV heparin Continue telemetry monitoring to assess for atrial fibrillation Evaluation of abdominal pain per primary medicine NPO at midnight for possible cardiac cath tomorrow Further recommendations pending patient course Nurse practitioner note has been reviewed by physician. Signing provider agrees with the documented findings, assessment, and plan of care documented by [employer] as a scribe. Objective - Vital Signs Vital signs: Vital Signs Temp 98.0 F 03/04/24 08:20 Pulse 105 H 03/04/24 08:20 Resp 20 03/04/24 08:20 BP 155/84 03/04/24 08:20 Pulse Ox 95 03/04/24 08:20 FiO2 Intake & Output 03/03/24 03/04/24 03/04/24 18:59 06:59 18:59 Intake Total 1479.777 160.566 240 Output Total 1320 700 Balance 159.777 -539.434 240 Weight 106.3 kg Intake: IV 375 Sodium Chloride 0.9% 1, 375 000 ml @ 125 mls/hr IV . Q8H ESTELLE Rx#:[id number] Intake, IV Titration 204.777 160.566 Amount Heparin Sod,Pork in 0.45% 204.777 160.566 NaCl 25,000 unit In 0.45 % NaCl 1 250ml.bag @ 9. 524 UNITS/KG/HR 10 mls/hr IV .Q24H ESTELLE Rx#: [id number] Oral 900 240 Output: Urine 1320 700 Other: Voiding Method Toilet Toilet Urinal Urinal # Voids 1 1 - Labs CBC & Chem 7: 03/04/24 06:02 03/03/24 05:41 Labs: Abnormal Lab Results - Last 24 Hours (Table) 03/03/24 03/03/24 03/03/24 Range/Units 05:41 05:41 15:37 RBC (4.30-5.90) m/uL Hgb (13.0-17.5) gm/dL Hct (39.0-53.0) % Plt Count (150-450) k/uL Lymphocytes # (Manual) 0.53 L (1.0-4.8) k/uL APTT (22.0-30.0) sec POC Glucose (mg/dL) (70-110) mg/dL Hemoglobin A1c 10.0 H (<=6.0) % Troponin I 0.867 H* (0.000-0.034) ng/mL 03/03/24 03/03/24 03/04/24 Range/Units 16:52 20:25 06:02 RBC (4.30-5.90) m/uL Hgb (13.0-17.5) gm/dL Hct (39.0-53.0) % Plt Count (150-450) k/uL Lymphocytes # (Manual) (1.0-4.8) k/uL APTT 34.4 H (22.0-30.0) sec POC Glucose (mg/dL) 256 H 222 H (70-110) mg/dL Hemoglobin A1c (<=6.0) % Troponin I (0.000-0.034) ng/mL 03/04/24 03/04/24 03/04/24 Range/Units 06:02 06:13 11:46 RBC 3.22 L (4.30-5.90) m/uL Hgb 11.0 L (13.0-17.5) gm/dL Hct 30.1 L (39.0-53.0) % Plt Count 115 L (150-450) k/uL Lymphocytes # (Manual) (1.0-4.8) k/uL APTT (22.0-30.0) sec POC Glucose (mg/dL) 260 H 282 H (70-110) mg/dL Hemoglobin A1c (<=6.0) % Troponin I (0.000-0.034) ng/mL
--- NOTE | 2024-03-04 14:32 | P.PN ---
Subjective Progress Note Date: 03/04/24 Principal diagnosis: Chest pain, new onset atrial fibrillation with RVR and generalized weakness This is a 73-year-old female whom I see in the office on a regular basis. I have seen this patient for his multiple medical problems including diabetes, hypertension, and history of mycosis fungoides. Patient also sees Dr. Kyle on a regular basis, and he sees the electric range servicer and the excavating machine operator also on a regular basis. Patient was transferred yesterday from [facility], apparently he presented to the hospital with weakness, fatigue, some vague chest discomfort and abdominal discomfort. Patient has not been eating and drinking much for the last few days, and he was felt to be dehydrated. Underwent further investigation at [facility], and his EKG showed atrial fibrillation with RVR. Patient was given Cardizem bolus and placed on Cardizem drip, and he converted to sinus rhythm. Troponins were noted to be elevated, hence arrangements were made to transfer the patient to [facility]. Patient was supposed to go to [facility]. however he was admitted to the ICU as an overflow. I saw this patient today, and I have known this patient for many years. He is he feels generally weak, has some vague abdominal discomfort and chest discomfort. Does not seem to be in any distress. Patient is receiving:, He is on room air, receiving fluids in the form of 0.9 normal saline at 125 cc/h, he has some vague abdominal discomfort and abdominal ultrasound is pending. Patient was seen by cardiology and The patient on heparin for now because of his elevated troponin. Patient had no previous documented history of atrial fibrillation, and no history of underlying coronary artery disease. EKG on admission showed sinus rhythm, nonspecific ST changes in the lateral leads. Labs this morning show WBC count of 3.3 hemoglobin 11.1 basic metabolic profile is normal bicarb is a bit low at 16 anion gap is normal BUN is 28 creatinine 1.13, troponin this morning is trending down to 0.[address] of the chest showed some pulmonary vascular prominence and small bilateral pleural effusions Patient was today on 03/04/2024, patient is feeling much better today, relatively asymptomatic, he is in sinus rhythm, he is hemodynamically stable, not in any distress, patient is on room air. Patient continues to have some vague abdominal discomfort, CT of the chest question colitis, however patient has been up-to-date on his colonoscopies and his last colonoscopy was in [address] Holt, and this showed mostly diverticular disease and hemorrhoids. Patient denies any nausea or vomiting, denies any diarrhea, I believe the findings on the CT of the abdomen and pelvis are nonspecific. Patient does have a nonocclusive renal calculus, could be addressed on outpatient basis by urology. WBC count is 3.9 hemoglobin is 11. His troponin has been trending down to 0.867 blood sugar is 282 today. Patient was seen by cardiology today, and is scheduled to undergo cardiac catheterization tomorrow Objective - Vital Signs Vital signs: Vital Signs Temp 98.0 F 03/04/24 08:20 Pulse 95 03/04/24 12:09 Resp 18 03/04/24 12:09 BP 137/69 03/04/24 12:09 Pulse Ox 95 03/04/24 12:09 FiO2 Intake & Output 03/03/24 03/04/24 03/04/24 18:59 06:59 18:59 Intake Total 1479.777 160.566 240 Output Total 1320 700 Balance 159.777 -539.434 240 Weight 106.3 kg Intake: IV 375 Sodium Chloride 0.9% 1, 375 000 ml @ 125 mls/hr IV . Q8H ESTELLE Rx#:[id number] Intake, IV Titration 204.777 160.566 Amount Heparin Sod,Pork in 0.45% 204.777 160.566 NaCl 25,000 unit In 0.45 % NaCl 1 250ml.bag @ 9. 524 UNITS/KG/HR 10 mls/hr IV .Q24H ESTELLE Rx#: [id number] Oral 900 240 Output: Urine 1320 700 Other: Voiding Method Toilet Toilet Urinal Urinal # Voids 1 1 - Exam General: Reveals 73-year-old white male in no distress, on room air. Skin: Multiple dry scaly lesions noted in the face and in the lower extremities. Eye: Pupils are equal, round and reactive to light, extra-ocular movements are intact; there is normal conjunctiva bilaterally. Ears, nose, mouth and throat: There are moist mucous membranes and no oral lesions. Neck: The neck is supple, there is no tenderness or JVD. Cardiovascular: There is a regular rate and rhythm. No murmur, rub or gallop is appreciated. Respiratory: Clear bilaterally no rhonchi no wheezes Gastrointestinal: Soft, non-distended, non-tender abdomen without masses or organomegaly noted. There is no rebound or guarding present. Bowel sounds are unremarkable. Musculoskeletal: No deformities and no limitation range of motion Neurological: Alert and oriented x 3 no gross focal deficit. Psychiatric: Cooperative, appropriate mood & affect, normal judgment. - Labs CBC & Chem 7: 03/04/24 06:02 03/03/24 05:41 Labs: Abnormal Lab Results - Last 24 Hours (Table) 03/03/24 03/03/24 03/03/24 Range/Units 05:41 15:37 16:52 RBC (4.30-5.90) m/uL Hgb (13.0-17.5) gm/dL Hct (39.0-53.0) % Plt Count (150-450) k/uL Lymphocytes # (Manual) 0.53 L (1.0-4.8) k/uL APTT (22.0-30.0) sec POC Glucose (mg/dL) 256 H (70-110) mg/dL Troponin I 0.867 H* (0.000-0.034) ng/mL 03/03/24 03/04/24 03/04/24 Range/Units 20:25 06:02 06:02 RBC 3.22 L (4.30-5.90) m/uL Hgb 11.0 L (13.0-17.5) gm/dL Hct 30.1 L (39.0-53.0) % Plt Count 115 L (150-450) k/uL Lymphocytes # (Manual) (1.0-4.8) k/uL APTT 34.4 H (22.0-30.0) sec POC Glucose (mg/dL) 222 H (70-110) mg/dL Troponin I (0.000-0.034) ng/mL 03/04/24 03/04/24 Range/Units 06:13 11:46 RBC (4.30-5.90) m/uL Hgb (13.0-17.5) gm/dL Hct (39.0-53.0) % Plt Count (150-450) k/uL Lymphocytes # (Manual) (1.0-4.8) k/uL APTT (22.0-30.0) sec POC Glucose (mg/dL) 260 H 282 H (70-110) mg/dL Troponin I (0.000-0.034) ng/mL Assessment and Plan Assessment: Impression: New onset atrial fibrillation with RVR resolved, presently in sinus rhythm Acute non-ST elevation myocardial infarction scheduled to have cardiac catheterization tomorrow Acute dehydration, most likely secondary to poorly controlled diabetes and decreased p.o. intake. Acute kidney injury probably related to dehydration Type 2 diabetes. Abdominal pain, chronic, current on his colonoscopy his last colonoscopy was in October 19, 2022 Commendation: Continue IV heparin Continue beta-blockers Continue aspirin Monitor sugars and address accordingly Continue hydration Echocardiogram was reviewed, results are within normal Will continue to follow. Time with Patient: Less than 30
[2024-03-04] MEDS: ENOXAPARIN 40 MG/0.4 ML SYRINGE SQ SCH (15:23)
[2024-03-04] MEDS: LINAGLIPTIN 5 MG TABLET PO SCH (15:38)
[2024-03-04 16:51] LABS: Glucose,Whole Blood 230 mg/dL (70-110)
[2024-03-04] MEDS: FUROSEMIDE 20 MG TAB PO SCH (17:05)
[2024-03-04 19:55] LABS: Glucose,Whole Blood 263 mg/dL (70-110)
[2024-03-04] MEDS: GABAPENTIN 300 MG CAP PO SCH (20:37)
[2024-03-05 06:09] LABS: Glucose,Whole Blood 242 mg/dL (70-110)
[2024-03-05] MEDS ORDERED: HEPARIN SODIUM,PORCINE 10,000 UNIT in SODIUM CHLORIDE 0.9% 1,000 ML IRRIGATION PRN (07:00)
[2024-03-05] MEDS ORDERED: HEPARIN SODIUM,PORCINE (1 ML) 2,500 UNIT in SODIUM CHLORIDE 0.9% 250 ML IRRIGATION PRN (07:00)
[2024-03-05] MEDS ORDERED: ALPRAZolam 0.25 MG TAB PO PRN (10:17)
[2024-03-05] MEDS ORDERED: NITROGLYCERIN SL TABS 0.4 MG TAB SUBLINGUAL PRN (10:17)
[2024-03-05] MEDS ORDERED: ASPIRIN 325 MG TAB PO STA (10:18)
[2024-03-05] MEDS ORDERED: ATORVASTATIN 80 MG TAB PO STA (10:18)
[2024-03-05] MEDS: ASPIRIN 81 MG PO STA (10:31)
[2024-03-05] MEDS: ATORVASTATIN 80 MG TAB PO STA (10:31)
[2024-03-05] MEDS: SODIUM CHLORIDE 0.9% 1,000 ML in EMPTY BAG 1 BAG IV SCH (10:32)
[2024-03-05 11:33] LABS: Glucose,Whole Blood 231 mg/dL (70-110)
[2024-03-05] MEDS: fentaNYL (PF) 50 MCG/1 ML VIAL IVP ONE (12:40)
[2024-03-05] MEDS: LIDOCAINE 2% (PF) 20 MG/ML 5 ML VIAL SQ ONE (12:40)
[2024-03-05] MEDS: VERAPAMIL 2.5 MG/ML 4 ML VIAL INTRAARTER ONE (12:41)
[2024-03-05] MEDS: HEPARIN SODIUM 1,000 UN/ML (10ML VL) IVP ONE (12:49)
[2024-03-05 12:53] LABS: ALT 76 U/L (4-49); AST 71 U/L (17-59); African American GFR (CKD) 80 (>60 ml/min/1.73 sqM); Albumin 2.6 g/dL (3.5-5.0); Alkaline Phosphatase 146 U/L (38-126); Anion Gap 8 mmol/L; Blood Urea Nitrogen 17 mg/dL (9-20); Calcium 7.8 mg/dL (8.4-10.2); Carbon Dioxide 20 mmol/L (22-30); Chloride 115 mmol/L (98-107); Glucose 248 mg/dL (74-99); Non-African American GFR(CKD) 69 (>60 ml/min/1.73 sqM); Potassium 3.8 mmol/L (3.5-5.1); Sodium 143 mmol/L (137-145); Total Bilirubin 1.5 mg/dL (0.2-1.3); Total Protein 5.4 g/dL (6.3-8.2)
[2024-03-05] MEDS: IOPAMIDOL-370 100ML BTL INTRATHECA ONE (12:58)
[2024-03-05] MEDS: SODIUM CHLORIDE 0.9% 1,000 ML IV ONE (12:59)
[2024-03-05] MEDS ORDERED: RX INFO: IV CONTRAST WAS GIVEN 1 EACH MISC MISCELLANE PRN (13:11)
--- NOTE | 2024-03-05 13:15 | P.PN ---
Subjective HISTORY OF PRESENT ILLNESS: This is a 73-year-old gentleman with a past medical history significant for diabetes and hypertension and dyslipidemia and also history of "mycosis fungoides" as well as overweight. We asked to see the patient in consultation in the intensive care unit. Please note that the patient is a somewhat poor historian. He presented to [facility] complaining of feeling weak and also he was experiencing what is seems to be abdominal discomfort and chest discomfort. Further investigation was performed including blood work and that revealed an acute renal failure. The patient stated that he was not eating and drinking well for the last few days. It felt that he was dehydrated. Also he underwent further investigation including troponin that came in to be abnormal. Beside that an EKG was performed and showed "atrial fibrillation". I was able to review the previous medical records from [facility] and that showed an EKG showing sinus mechanism and I did not see an EKG showing atrial fibrillation as of yet. Will contact them to fax any other EKG to confirm that he is in A- fib. Currently he is in sinus mechanism. According to the report he was started over there on Cardizem IV and he was converted to normal sinus mechanism. No history of atrial fibrillation before. Currently the patient is not experiencing any chest pain or chest discomfort. No history of coronary artery disease or congestive heart failure or any cardiac arrhythmia or atrial fibrillation before. The troponin here is elevated. The EKG from [facility] showed sinus mechanism with ST changes in the lateral leads. The physical examination reveals regular rhythm with a distant heart sounds and soft systolic murmur at the right upper sternal border with clear breathing sounds bilaterally and tender abdomen. 03/04/2024 Patient examined this morning at the bedside. Patient denies chest pain or pressure. He denies SOB. He continues to report abdominal pain. Abdominal ultrasound reveals edema in the fat surrounding the right colon which may represent nonspecific colitis. Large nonobstructing left renal calculus. No hydronephrosis or ureteral calculus. Echocardiogram completed revealing ejection fraction 65 to 70% with mild MR. Telemetry reveals atrial fibrillation. No EKG from [facility] has been received. 03/05/2024 Patient examined this morning at the bedside. Patient reports having an episode of chest discomfort this morning that resolved on its own. Patient also had a brief run of atrial fibrillation this morning. He remains on IV heparin. He is currently maintaining sinus mechanism. Patient denies abdominal pain at the time of examination. He reports he is passing flatus and having bowel movements. Vital signs are stable. PHYSICAL EXAM: VITAL SIGNS: Reviewed. GENERAL: Well-developed in no acute distress. NECK: Supple. No JVD or thyromegaly LUNGS: Respirations even and unlabored. Lungs essentially clear to auscultation bilaterally. HEART: Regular rate and rhythm. S1 and S2 heard. EXTREMITIES: Normal range of motion. No clubbing or cyanosis. Peripheral pulses intact. No lower extremity edema ASSESSMENT: Generalized weakness Decreased oral intake Abdominal pain Possible colitis, per CT scan New onset paroxysmal atrial fibrillation Elevated troponins, Type I versus Type II [place] Acute renal failure, resolved Hypertension Hyperlipidemia Diabetes Mycosis fungoides, on chemo outpatient PLAN: Continue current cardiac medications Due to abnormal troponins and an episode of chest discomfort this morning, patient will undergo cardiac catheterization today with Dr. Kyle Continue IV heparin post catheterization due to atrial fibrillation noted on telemetry. Will transition to oral anticoagulation tomorrow Further recommendations pending patient course Nurse practitioner note has been reviewed by physician. Signing provider agrees with the documented findings, assessment, and plan of care documented by BUTTON SPINDLER as a scribe. Objective - Vital Signs Vital signs: Vital Signs Temp 98.6 F 03/05/24 07:46 Pulse 95 03/05/24 09:10 Resp 16 03/05/24 09:10 BP 133/72 03/05/24 07:46 Pulse Ox 96 03/05/24 04:00 FiO2 Intake & Output 03/04/24 03/05/24 03/05/24 18:59 06:59 18:59 Intake Total 450.734 546.7 Balance 450.734 546.7 Intake: IV 300 Intake, IV Titration 92.734 246.7 Amount Heparin Sod,Pork in 0.45% 92.734 246.7 NaCl 25,000 unit In 0.45 % NaCl 1 250ml.bag @ 9. 524 UNITS/KG/HR 10 mls/hr IV .Q24H ESTELLE Rx#: [id number] Oral 358 Other: Voiding Method Toilet Toilet Toilet Urinal Urinal Urinal # Voids 4 1 2 # Bowel Movements 4 - Labs CBC & Chem 7: 03/04/24 06:02 03/05/24 10:52 Labs: Abnormal Lab Results - Last 24 Hours (Table) 03/04/24 03/04/24 03/04/24 Range/Units 14:36 14:36 16:50 APTT 35.1 H (22.0-30.0) sec Chloride (98-107) mmol/L Carbon Dioxide (22-30) mmol/L Glucose (74-99) mg/dL POC Glucose (mg/dL) 230 H (70-110) mg/dL Hemoglobin A1c 10.0 H (<=6.0) % Calcium (8.4-10.2) mg/dL Total Bilirubin (0.2-1.3) mg/dL AST (17-59) U/L ALT (4-49) U/L Alkaline Phosphatase (38-126) U/L Total Protein (6.3-8.2) g/dL Albumin (3.5-5.0) g/dL 03/04/24 03/04/24 03/05/24 Range/Units 19:52 21:40 02:08 APTT 43.1 H 53.2 H (22.0-30.0) sec Chloride (98-107) mmol/L Carbon Dioxide (22-30) mmol/L Glucose (74-99) mg/dL POC Glucose (mg/dL) 263 H (70-110) mg/dL Hemoglobin A1c (<=6.0) % Calcium (8.4-10.2) mg/dL Total Bilirubin (0.2-1.3) mg/dL AST (17-59) U/L ALT (4-49) U/L Alkaline Phosphatase (38-126) U/L Total Protein (6.3-8.2) g/dL Albumin (3.5-5.0) g/dL 03/05/24 03/05/24 03/05/24 Range/Units 06:07 10:52 11:32 APTT (22.0-30.0) sec Chloride 115 H (98-107) mmol/L Carbon Dioxide 20 L (22-30) mmol/L Glucose 248 H (74-99) mg/dL POC Glucose (mg/dL) 242 H 231 H (70-110) mg/dL Hemoglobin A1c (<=6.0) % Calcium 7.8 L (8.4-10.2) mg/dL Total Bilirubin 1.5 H (0.2-1.3) mg/dL AST 71 H (17-59) U/L ALT 76 H (4-49) U/L Alkaline Phosphatase 146 H (38-126) U/L Total Protein 5.4 L (6.3-8.2) g/dL Albumin 2.6 L (3.5-5.0) g/dL
--- NOTE | 2024-03-05 13:20 | P.CARDCATH ---
Date of Procedure: 03/05/24 Description of Procedure: Cardiac Catheterization: The patient is a 73-year-old male with a known history of diabetes, hypertension and hyperlipidemia who presented to [facility] with symptoms of fatigue, change in mental status and dyspnea. Had evidence of acute renal injury, paroxysmal atrial fibrillation and subsequently had troponin elevation. His renal function improved with hydration and his mental status recovered to baseline. Recommendations were made regarding cardiac catheterization, the risks and the complications were discussed with the patient who is in full understanding and agreement. Procedure Description: Patient was brought to geophysical laboratory supervisor in fasting semi-sedated state after receiving Fentanyl and Benadryl achieiving moderate conscious sedated state. Using Xylocaine Anesthesia and modified Seldinger technique, a 6-Chadian sheath was introduced in the right radial artery . Subsequently, selective coronary angiography was performed using a 5-Chadian 3.5 bend Estella catheter. Multiple views of the coronary artery including hemiaxial views were obtained. The 6 Chadian pigtail catheter was used to cross the aortic valve and LVEDP was calculated. Following that, catheter and sheath were removed. Hemostasis was obtained with deployment of vascular band . There was no immediate complication. Patient was returned to room in stable condition. Of note, the patient received a total of 5000 units of intravenous heparin as well as intra-arterial verapamil. Findings: Fluoroscopy: Calcification of the LAD was noted. Left main: This is a large size vessel, bifurcating into LAD and left circumflex, left main has no obstructive disease LAD: This is a large size vessel, reaching to the apex with a wraparound apex segment giving rise to a moderately sized diagonal branch in the midsegment. The proximal LAD has a 30% plaque and there is another 30% plaque after the take off of the diagonal branch. The rest of the vessel has no high-grade stenosis Left circumflex: This is a nondominant vessel giving rise to 2 obtuse marginal branch the first 1 is large in caliber. The second obtuse marginal branch is small in caliber and it has diffuse intimal disease of 30 to 40%. RCA: This is a large tortuous vessel bifurcating distally to PDA and PLV the proximal right coronary artery has a 40 to 50% plaque and there is another 30 to 40% plaque in the midsegment the rest of the vessel has no high-grade stenosis. Left Ventriculogram: Not performed Hemodynamics: There was no gradient across aortic valve, LVEDP was 18-22 mmHg Conclusion: 1. Mild to moderate triple-vessel disease 2. Calcified LAD 3. Right dominance 4. Elevated LVEDP Recommendations: The patient will continue on maximizing his medical therapy. Troponin elevation could be related to the acute renal injury and paroxysmal atrial fibrillation. The findings and the recommendations were discussed with the patient and the family and they were in full understanding and agreement. Duration of sedation is 21 minutes.
[2024-03-05] MEDS: SODIUM CHLORIDE 0.9% 1,000 ML IV SCH (13:30)
--- NOTE | 2024-03-05 14:13 | P.GSCN ---
History of Present Illness Consult date: 03/05/24 History of present illness: CHIEF COMPLAINT: Weakness HISTORY OF PRESENT ILLNESS: This is a 73-year-old male who was a transfer from [facility] for weakness with abdominal discomfort and chest discomfort. Patient is a poor historian. He does report having chemotherapy 2 weeks ago for his skin disorder of mycosis fungoides. Patient had elevated troponins and diagnosed with an acute UT. Patient scheduled for heart catheterization today with cardiology service. Patient reports that yesterday his abdominal pain was more severe and was located at his umbilicus. Patient reports his pain has improved. He had a small bowel movement. Did report a little nausea. He denies any vomiting. Denies any diarrhea. Denies any blood in his stools. He his last colonoscopy was 2 years ago and had shown diverticulosis per the patient. Patient has CT scan abdomen and pelvis reported edema in the fat surrounding the right colon which may represent a nonspecific colitis. Large nonobstructing left renal calculus. No hydronephrosis or ureteral calculus. Surgical service consulted for abdominal pain. Patient seen and examined with Dr. Gomez PAST MEDICAL HISTORY: See below PAST SURGICAL HISTORY: See below MEDICATIONS: See below ALLERGIES: See below SOCIAL HISTORY: No illicit drug use. REVIEW OF SYSTEMS: CONSTITUTIONAL: Denies fever or chills. HEENT: Denies blurred vision, vision changes, or eye pain. Denies hemoptysis CARDIOVASCULAR: Denies chest pain or pressure. RESPIRATORY: No shortness of breath. GASTROINTESTINAL: See HPI for pertinent findings HEMATOLOGIC: Denies bleeding disorders. GENITOURINARY: Denies any blood in urine or increased urinary frequency. SKIN: Denies pruitis. Denies rash. PHYSICAL EXAM: VITAL SIGNS: Reviewed GENERAL: Well-developed in no acute distress. HEENT: No sclera icterus. Extraocular movements grossly intact. Moist buccal mucosa. Head is atraumatic, normocephalic. No nasal drainage. ABDOMEN: Soft. Nondistended. Nontender NEUROLOGIC: Alert and oriented. Cranial nerves II through XII grossly intact. LABORATORY DATA: WBC 3.9 Hgb 11.0 platelets 115 Sodium is 143 potassium 3.8 creatinine 1.06 Total bilirubin 1.5 AST 71 ALT 76 alk phos 146 IMAGING: Abdominal ultrasound hepatomegaly Limited exam due to excessive bowel gas. CT scan findings reports reported edema in the fat surrounding the right colon which may represent a nonspecific colitis. Large nonobstructing left renal taylor culus. No hydronephrosis or ureteral calculus. ASSESSMENT: 1. Umbilical abdominal pain resolved 2. Edema in the fat surrounding the right colon which may represent a nonspecific colitis noted on CT scan 3. Elevated troponins 4. Elevated LFTs and total bilirubin 5. Hepatomegaly PLAN: -Continue to observe -Continue supportive care -Okay for regular diet -Continue cardiac workup -Await further GI recommendations Physician [employer] Trolley Driver note has been reviewed by physician. Signing provider agrees with the documented findings, assessment, and plan of care. Past Medical History Past Medical History: Atrial Fibrillation, Cancer, Diabetes Mellitus, Hype rlipidemia, Hypertension Additional Past Medical History / Comment(s): aib new 03/02/24, skin ca History of Any Multi-Drug Resistant Organisms: None Reported Past Surgical History: Hernia Repair, Orthopedic Surgery Additional Past Surgical History / Comment(s): left shoulder, right knee scope Past Anesthesia/Blood Transfusion Reactions: Unable to Obtain Smoking Status: Former smoker Medications and Allergies Home Medications Medication Instructions Recorded Confirmed Type Atorvastatin [Lipitor] 20 mg PO HS 10/28/20 03/02/24 History INSULIN LISPRO (For Pump) [humaLOG 0.01 units SQ-PUMP CONTINUOUS 10/28/20 03/02/24 History (For Pump)] Losartan Potassium 100 mg PO DAILY 10/23/22 03/02/24 History Metoprolol Succinate (ER) [Toprol 50 mg PO DAILY 11/05/22 03/02/24 History XL] Furosemide [Lasix] 20 mg PO Q2D 03/02/24 03/02/24 History Gabapentin [Neurontin] 300 mg PO HS 03/02/24 03/02/24 History Ondansetron Odt [Zofran Odt] 8 mg PO Q8HR PRN 03/02/24 03/02/24 History Prochlorperazine [Compazine] 10 mg PO Q6H PRN 03/02/24 03/02/24 History hydroCHLOROthiazide [Hydrodiuril] 25 mg PO DAILY 03/02/24 03/02/24 History Allergies Allergy/AdvReac Type Severity Reaction Status Date / Time No Known Allergies Allergy Verified 11/05/22 15:43 Surgical - Exam Vital Signs Temp Pulse Resp BP Pulse Ox 98.4 F 89 14 114/73 95 03/02/24 17:40 03/02/24 17:40 03/02/24 17:40 03/02/24 17:40 03/02/24 17:40 Results - Labs 03/04/24 06:02 03/05/24 10:52 Abnormal Lab Results - Last 24 Hours (Table) 03/04/24 03/04/24 03/04/24 Range/Units 11:46 14:36 14:36 APTT 35.1 H (22.0-30.0) sec POC Glucose (mg/dL) 282 H (70-110) mg/dL Hemoglobin A1c 10.0 H (<=6.0) % 03/04/24 03/04/24 03/04/24 Range/Units 16:50 19:52 21:40 APTT 43.1 H (22.0-30.0) sec POC Glucose (mg/dL) 230 H 263 H (70-110) mg/dL Hemoglobin A1c (<=6.0) % 03/05/24 03/05/24 Range/Units 02:08 06:07 APTT 53.2 H (22.0-30.0) sec POC Glucose (mg/dL) 242 H (70-110) mg/dL Hemoglobin A1c (<=6.0) % Diabetes panel 03/04/24 Range/Units 14:36 Hemoglobin A1c 10.0 H (<=6.0) %
--- NOTE | 2024-03-05 14:41 | P.PN ---
Subjective Progress Note Date: 03/05/24 Principal diagnosis: Chest pain, new onset atrial fibrillation with RVR and generalized weakness This is a 73-year-old female whom I see in the office on a regular basis. I have seen this patient for his multiple medical problems including diabetes, hypertension, and history of mycosis fungoides. Patient also sees Dr. Kyle on a regular basis, and he sees the telemarketing manager and the waterfront director also on a regular basis. Patient was transferred yesterday from [facility], apparently he presented to the hospital with weakness, fatigue, some vague chest discomfort and abdominal discomfort. Patient has not been eating and drinking much for the last few days, and he was felt to be dehydrated. Underwent further investigation at [facility], and his EKG showed atrial fibrillation with RVR. Patient was given Cardizem bolus and placed on Cardizem drip, and he converted to sinus rhythm. Troponins were noted to be elevated, hence arrangements were made to transfer the patient to [facility]. Patient was supposed to go to [facility]. however he was admitted to the ICU as an overflow. I saw this patient today, and I have known this patient for many years. He is he feels generally weak, has some vague abdominal discomfort and chest discomfort. Does not seem to be in any distress. Patient is receiving:, He is on room air, receiving fluids in the form of 0.9 normal saline at 125 cc/h, he has some vague abdominal discomfort and abdominal ultrasound is pending. Patient was seen by cardiology and The patient on heparin for now because of his elevated troponin. Patient had no previous documented history of atrial fibrillation, and no history of underlying coronary artery disease. EKG on admission showed sinus rhythm, nonspecific ST changes in the lateral leads. Labs this morning show WBC count of 3.3 hemoglobin 11.1 basic metabolic profile is normal bicarb is a bit low at 16 anion gap is normal BUN is 28 creatinine 1.13, troponin this morning is trending down to 0.[address] of the chest showed some pulmonary vascular prominence and small bilateral pleural effusions Patient was today on 03/04/2024, patient is feeling much better today, relatively asymptomatic, he is in sinus rhythm, he is hemodynamically stable, not in any distress, patient is on room air. Patient continues to have some vague abdominal discomfort, CT of the chest question colitis, however patient has been up-to-date on his colonoscopies and his last colonoscopy was in [address] Holt, and this showed mostly diverticular disease and hemorrhoids. Patient denies any nausea or vomiting, denies any diarrhea, I believe the findings on the CT of the abdomen and pelvis are nonspecific. Patient does have a nonocclusive renal calculus, could be addressed on outpatient basis by urology. WBC count is 3.9 hemoglobin is 11. His troponin has been trending down to 0.867 blood sugar is 282 today. Patient was seen by cardiology today, and is scheduled to undergo cardiac catheterization tomorrow Reevaluate today on 03/05/2024, patient is doing well, asymptomatic, denies any shortness of breath cough wheezing denies any chest pain. Apparently the patient had also a brief run earlier of atrial fibrillation, he remains on IV heparin, otherwise he is in sinus rhythm most of the time. Cardiac catheterization was done today, there was minimal to moderate coronary artery disease, no need for intervention, the recommendation is medical therapy. Labs today were all reviewed including his basic metabolic profile and renal profile they seem to be relatively normal. Objective - Vital Signs Vital signs: Vital Signs Temp 98.6 F 03/05/24 07:46 Pulse 95 03/05/24 09:10 Resp 16 03/05/24 14:27 BP 117/70 03/05/24 14:27 Pulse Ox 95 03/05/24 14:27 FiO2 Intake & Output 03/04/24 03/05/24 03/05/24 18:59 06:59 18:59 Intake Total 450.734 546.7 Balance 450.734 546.7 Intake: IV 300 Intake, IV Titration 92.734 246.7 Amount Heparin Sod,Pork in 0.45% 92.734 246.7 NaCl 25,000 unit In 0.45 % NaCl 1 250ml.bag @ 9. 524 UNITS/KG/HR 10 mls/hr IV .Q24H [facility] Rx#: [id number] Oral 358 Other: Voiding Method Toilet Toilet Toilet Urinal Urinal Urinal # Voids 4 1 2 # Bowel Movements 4 - Exam General: Reveals 73-year-old white male in no distress, on room air. Skin: Multiple dry scaly lesions noted in the face and in the lower extremities. Eye: Pupils are equal, round and reactive to light, extra-ocular movements are intact; there is normal conjunctiva bilaterally. Ears, nose, mouth and throat: There are moist mucous membranes and no oral lesions. Neck: The neck is supple, there is no tenderness or JVD. Cardiovascular: There is a regular rate and rhythm. No murmur, rub or gallop is appreciated. Respiratory: Clear bilaterally no rhonchi no wheezes Gastrointestinal: Soft, non-distended, non-tender abdomen without masses or organomegaly noted. There is no rebound or guarding present. Bowel sounds are unremarkable. Musculoskeletal: No deformities and no limitation range of motion Neurological: Alert and oriented x 3 no gross focal deficit. Psychiatric: Cooperative, appropriate mood & affect, normal judgment. - Labs CBC & Chem 7: 03/04/24 06:02 03/05/24 10:52 Labs: Abnormal Lab Results - Last 24 Hours (Table) 03/04/24 03/04/24 03/04/24 Range/Units 14:36 14:36 16:50 APTT 35.1 H (22.0-30.0) sec Chloride (98-107) mmol/L Carbon Dioxide (22-30) mmol/L Glucose (74-99) mg/dL POC Glucose (mg/dL) 230 H (70-110) mg/dL Hemoglobin A1c 10.0 H (<=6.0) % Calcium (8.4-10.2) mg/dL Total Bilirubin (0.2-1.3) mg/dL AST (17-59) U/L ALT (4-49) U/L Alkaline Phosphatase (38-126) U/L Total Protein (6.3-8.2) g/dL Albumin (3.5-5.0) g/dL 03/04/24 03/04/24 03/05/24 Range/Units 19:52 21:40 02:08 APTT 43.1 H 53.2 H (22.0-30.0) sec Chloride (98-107) mmol/L Carbon Dioxide (22-30) mmol/L Glucose (74-99) mg/dL POC Glucose (mg/dL) 263 H (70-110) mg/dL Hemoglobin A1c (<=6.0) % Calcium (8.4-10.2) mg/dL Total Bilirubin (0.2-1.3) mg/dL AST (17-59) U/L ALT (4-49) U/L Alkaline Phosphatase (38-126) U/L Total Protein (6.3-8.2) g/dL Albumin (3.5-5.0) g/dL 03/05/24 03/05/24 03/05/24 Range/Units 06:07 10:52 11:32 APTT (22.0-30.0) sec Chloride 115 H (98-107) mmol/L Carbon Dioxide 20 L (22-30) mmol/L Glucose 248 H (74-99) mg/dL POC Glucose (mg/dL) 242 H 231 H (70-110) mg/dL Hemoglobin A1c (<=6.0) % Calcium 7.8 L (8.4-10.2) mg/dL Total Bilirubin 1.5 H (0.2-1.3) mg/dL AST 71 H (17-59) U/L ALT 76 H (4-49) U/L Alkaline Phosphatase 146 H (38-126) U/L Total Protein 5.4 L (6.3-8.2) g/dL Albumin 2.6 L (3.5-5.0) g/dL Assessment and Plan Assessment: Impression: New onset atrial fibrillation with RVR resolved, presently in sinus rhythm Acute non-ST elevation myocardial infarction, cardiac catheterization showed minimal to moderate coronary artery disease, recommendation is medical therapy, no intervention is felt to be necessary for Acute dehydration, most likely secondary to poorly controlled diabetes and decreased p.o. intake. Resolved Acute kidney injury probably related to dehydration, improving. Type 2 diabetes. Abdominal pain, chronic, current on his colonoscopy his last colonoscopy was in October 19, 2022 but this could be addressed on outpatient basis and follow-up with gastroenterology Commendation: Medical therapy for his mild to moderate coronary artery disease Continue beta-blockers for his atrial fibrillation/paroxysmal Continue aspirin Monitor sugars and address accordingly Continue to hydrate. Echocardiogram was reviewed, the catheterization report was reviewed Consider discharge planning once cleared by cardiology Will continue to follow. Time with Patient: Less than 30
[2024-03-05 15:08] LABS: African American GFR (CKD) 83 (>60 ml/min/1.73 sqM); Anion Gap 10 mmol/L; Blood Urea Nitrogen 18 mg/dL (9-20); Calcium 7.7 mg/dL (8.4-10.2); Carbon Dioxide 18 mmol/L (22-30); Chloride 114 mmol/L (98-107); Glucose 271 mg/dL (74-99); Non-African American GFR(CKD) 72 (>60 ml/min/1.73 sqM); Potassium 3.9 mmol/L (3.5-5.1); Sodium 142 mmol/L (137-145)
--- NOTE | 2024-03-05 15:30 | P.CONS ---
History of Present Illness - Reason for Consult Consult date: 03/05/24 Abdominal pain, colitis Requesting physician: Ferny Medrano - Chief Complaint Not feeling well - History of Present Illness This is a pleasant 73-year-old male who presented to the emergency department as a transfer from [facility] with complaints of feeling weak and some abdominal and chest discomfort. He has a past medical history for diabetes hypertension, and dyslipidemia. Patient was transferred to this facility for new onset atrial fibrillation and elevated troponins. Apparently patient had been started on Cardizem and was converted back to normal sinus rhythm. He states he also has some abdominal discomfort and some area over the last couple days duration. He is scheduled to undergo cardiac catheterization. He had a CT of the abdomen pelvis on admission reporting edema in the fat surrounding the right colon which may represent a nonspecific colitis. Large nonobstructing left renal calculus no hydronephrosis or ureteral calculus. Gastroenterology was consulted for abdominal pain and possible colitis. He denies any blood in his stool. He denies any abdominal pain, shortness of breath or chest pain at this time. Most recent labs WBC 3.9 hemoglobin 11.0 hematocrit 30 platelet count 115,000 sodium 142 potassium 3.9 BUN 18 creatinine 1.0 total bilirubin 1.5 AST 71 ALT 76 alkaline phosphatase 146 Review of Systems REVIEW OF SYSTEMS: CARDIOPULMONARY: No chest pain or shortness of breath. Gastrointestinal: No abdominal pain currently. No nausea or vomiting. No hematemesis, coffee-ground emesis. No rectal bleeding, or melena. Patient did have diarrhea, nonbloody none currently. GENITOURINARY: No dysuria or hematuria. MUSCULOSKELETAL: Reports normal range of motion. SKIN: No rashes. No jaundice. ENDOCRINE: No chills, fevers. No excessive weight gain or loss. No polydipsia or polyuria. PSYCHIATRIC: Unremarkable. NEUROLOGY: No change in mental status. Denies dizziness, headache. ENT: Vision unremarkable. CONSTITUTIONAL: No recent weight loss. No fever, chills, night sweats. Past Medical History Past Medical History: Atrial Fibrillation, Cancer, Diabetes Mellitus, Hyperlipidemia, Hypertension Additional Past Medical History / Comment(s): aib new 03/02/24, skin ca History of Any Multi-Drug Resistant Organisms: None Reported Past Surgical History: Hernia Repair, Orthopedic Surgery Additional Past Surgical History / Comment(s): left shoulder, right knee scope Past Anesthesia/Blood Transfusion Reactions: Unable to Obtain Smoking Status: Former smoker Medications and Allergies Home Medications Medication Instructions Recorded Confirmed Type Atorvastatin [Lipitor] 20 mg PO HS 10/28/20 03/02/24 History INSULIN LISPRO (For Pump) [humaLOG 0.01 units SQ-PUMP CONTINUOUS 10/28/20 03/02/24 History (For Pump)] Losartan Potassium 100 mg PO DAILY 10/23/22 03/02/24 History Metoprolol Succinate (ER) [Toprol 50 mg PO DAILY 11/05/22 03/02/24 History XL] Furosemide [Lasix] 20 mg PO Q2D 03/02/24 03/02/24 History Gabapentin [Neurontin] 300 mg PO HS 03/02/24 03/02/24 History Ondansetron Odt [Zofran Odt] 8 mg PO Q8HR PRN 03/02/24 03/02/24 History Prochlorperazine [Compazine] 10 mg PO Q6H PRN 03/02/24 03/02/24 History hydroCHLOROthiazide [Hydrodiuril] 25 mg PO DAILY 03/02/24 03/02/24 History Allergies Allergy/AdvReac Type Severity Reaction Status Date / Time No Known Allergies Allergy Verified 11/05/22 15:43 Physical Exam Vitals: Vital Signs Temp Pulse Resp BP Pulse Ox 03/05/24 09:10 95 116 H 03/05/24 07:51 95 03/05/24 07:46 98.6 F 95 17 133/72 03/05/24 04:00 98.4 F 95 18 149/91 96 03/05/24 02:00 95 18 03/05/24 00:00 95 18 147/76 95 03/04/24 20:00 98 F 96 18 134/71 94 L 03/04/24 15:54 97.7 F 93 18 134/75 94 L 03/04/24 14:00 95 18 03/04/24 12:09 95 18 137/69 95 Intake and Output 03/04/24 03/05/24 03/05/24 22:59 06:59 14:59 Intake Total 121.3 Balance 121.3 Intake: Intake, IV Titration 3.3 Amount Heparin Sod,Pork in 0.45% 3.3 NaCl 25,000 unit In 0.45 % NaCl 1 250ml.bag @ 9. 524 UNITS/KG/HR 10 mls/hr IV .Q24H [facility] Rx#: [id number] Oral 118 Other: Voiding Method Toilet Toilet Toilet Urinal Urinal Urinal # Voids 1 # Bowel Movements 4 General appearance: The patient is alert, oriented, appears in no acute distress. HET: Head is normocephalic and atraumatic. Conjunctiva pink. Sclera anicteric. Neck: Supple without lymphadenopathy. Trachea midline. Heart: Regular. Lungs: Equal expansion, normal respiratory effort. Abdomen: Soft, nontender, nondistended with bowel sounds. No guarding or rigidity. Skin: No rashes. No jaundice. Extremities: Normal skin color and turgor. No pedal edema. Neurological: No focal deficits. Alert and oriented x3. Results CBC & Chem 7: 03/04/24 06:02 03/05/24 14:25 Labs: Abnormal Lab Results - Last 24 Hours (Table) 03/04/24 03/04/24 03/04/24 Range/Units 11:46 14:36 14:36 APTT 35.1 H (22.0-30.0) sec POC Glucose (mg/dL) 282 H (70-110) mg/dL Hemoglobin A1c 10.0 H (<=6.0) % 03/04/24 03/04/24 03/04/24 Range/Units 16:50 19:52 21:40 APTT 43.1 H (22.0-30.0) sec POC Glucose (mg/dL) 230 H 263 H (70-110) mg/dL Hemoglobin A1c (<=6.0) % 03/05/24 03/05/24 Range/Units 02:08 06:07 APTT 53.2 H (22.0-30.0) sec POC Glucose (mg/dL) 242 H (70-110) mg/dL Hemoglobin A1c (<=6.0) % Comments: CT of the abdomen pelvis on admission reporting edema in the fat surrounding the right colon which may represent a nonspecific colitis. Large nonobstructing left renal calculus no hydronephrosis or ureteral calculus. Assessment and Plan (1) Abdominal pain Narrative/Plan: 73-year-old male transferred from outside hospital for new onset atrial fibrillation with abdominal and chest pain who underwent cardiac catheterization with finding of mild to moderate triple-vessel disease and was also and new onset atrial fibrillation. Patient did have some diarrhea and abdominal discomfort as well which could be secondary to mild colitis or gastroenteritis. Patient is without any further discomfort. No further diarrhea. He did recently have a colonoscopy with Dr. Greene in 2021 with findings of small hemorrhoids and diverticulosis. No plans at this time for any further workup or endoscopic evaluation. Current Visit: Yes Status: Acute Code(s): R10.9 - UNSPECIFIED ABDOMINAL PAIN SNOMED Code(s): 72470021 (2) Elevated LFTs Narrative/Plan: Unclear etiology of LFTs could be secondary to hypoperfusion. Will continue to monitor. Current Visit: Yes Status: Acute Code(s): R79.89 - OTHER SPECIFIED ABNORMAL FINDINGS OF BLOOD CHEMISTRY SNOMED Code(s): 105153769 (3) Chest pain Narrative/Plan: Cardiology following patient underwent cardiac catheterization with findings of mild to moderate triple-vessel disease Current Visit: No Status: Acute Code(s): R07.9 - CHEST PAIN, UNSPECIFIED SNOMED Code(s): 50732300 Plan: 1. Continue symptomatic and supportive care 2. Diet as tolerated 3. Protonix 40 mg daily for GI prophylaxis 4. Repeat CMP tomorrow 5. No plans on endoscopic evaluation at this time. If symptoms persist patient can follow-up as an outpatient 6. Continue with recommendations from cardiology Thank you for this consultation, we will continue to follow. Dr. Terra Kasper I agree with the dictator's note, documented as a scribe by Agnes Miles.
[2024-03-05 16:31] LABS: Glucose,Whole Blood 282 mg/dL (70-110)
[2024-03-05] MEDS ORDERED: HEPARIN SODIUM 1,000 UN/ML (10ML VL) IV PRN (18:10)
[2024-03-05 20:01] LABS: Glucose,Whole Blood 223 mg/dL (70-110)
[2024-03-05] MEDS: HEPARIN SODIUM 1,000 UN/ML (10ML VL) IV ONE (22:10)
[2024-03-05] MEDS: HEPARIN SOD,PORK IN 0.45% NACL 25,000 UNIT in 0.45% NACL 1 250ML.BAG IV SCH (22:10)
[2024-03-05] MEDS: METOPROLOL SUCCINATE (ER) 50 MG TAB.ER.24H PO SCH (22:13)
[2024-03-06] MEDS: ALPRAZolam 0.5 MG TAB PO PRN (00:18)
[2024-03-06 06:09] LABS: Glucose,Whole Blood 208 mg/dL (70-110)
[2024-03-06] MEDS ORDERED: APIXABAN 5 MG TAB PO SCH (09:00)
[2024-03-06] MEDS: APIXABAN 5 MG TAB PO SCH (09:30)
--- NOTE | 2024-03-06 10:02 | P.PN ---
Subjective HISTORY OF PRESENT ILLNESS: This is a 73-year-old gentleman with a past medical history significant for diabetes and hypertension and dyslipidemia and also history of "mycosis fungoides" as well as overweight. We asked to see the patient in consultation in the intensive care unit. Please note that the patient is a somewhat poor historian. He presented to [facility] complaining of feeling weak and also he was experiencing what is seems to be abdominal discomfort and chest discomfort. Further investigation was performed including blood work and that revealed an acute renal failure. The patient stated that he was not eating and drinking well for the last few days. It felt that he was dehydrated. Also he underwent further investigation including troponin that came in to be abnormal. Beside that an EKG was performed and showed "atrial fibrillation". I was able to review the previous medical records from [facility] and that showed an EKG showing sinus mechanism and I did not see an EKG showing atrial fibrillation as of yet. Will contact them to fax any other EKG to confirm that he is in A- fib. Currently he is in sinus mechanism. According to the report he was started over there on Cardizem IV and he was converted to normal sinus mechanism. No history of atrial fibrillation before. Currently the patient is not experiencing any chest pain or chest discomfort. No history of coronary artery disease or congestive heart failure or any cardiac arrhythmia or atrial fibrillation before. The troponin here is elevated. The EKG from [facility] showed sinus mechanism with ST changes in the lateral leads. The physical examination reveals regular rhythm with a distant heart sounds and soft systolic murmur at the right upper sternal border with clear breathing sounds bilaterally and tender abdomen. 03/04/2024 Patient examined this morning at the bedside. Patient denies chest pain or pressure. He denies SOB. He continues to report abdominal pain. Abdominal ultrasound reveals edema in the fat surrounding the right colon which may represent nonspecific colitis. Large nonobstructing left renal calculus. No hydronephrosis or ureteral calculus. Echocardiogram completed revealing ejection fraction 65 to 70% with mild MR. Telemetry reveals atrial fibrillation. No EKG from [facility] has been received. 03/05/2024 Patient examined this morning at the bedside. Patient reports having an episode of chest discomfort this morning that resolved on its own. Patient also had a brief run of atrial fibrillation this morning. He remains on IV heparin. He is currently maintaining sinus mechanism. Patient denies abdominal pain at the time of examination. He reports he is passing flatus and having bowel movements. Vital signs are stable. 03/06/2024 Patient is status postcardiac catheterization yesterday with Dr. Kyle revealing mild to moderate triple-vessel disease, calcified LAD, right dominant system, and elevated LVEDP. Medical management was recommended. Patient examined this morning at bedside. He denies any chest pain or pressure. Denies any shortness of breath. He reports improvement in his abdominal pain. Vital signs are stable. He remains on IV heparin. He is hoping to be discharged home soon. PHYSICAL EXAM: VITAL SIGNS: Reviewed. GENERAL: Well-developed in no acute distress. NECK: Supple. No JVD or thyromegaly LUNGS: Respirations even and unlabored. Lungs essentially clear to auscultation bilaterally. HEART: Regular rate and rhythm. S1 and S2 heard. EXTREMITIES: Normal range of motion. No clubbing or cyanosis. Peripheral pulses intact. No lower extremity edema ASSESSMENT: Generalized weakness Decreased oral intake Abdominal pain Possible colitis, per CT scan New onset paroxysmal atrial fibrillation Elevated troponins, Type I versus Type II LA Acute renal failure, resolved Hypertension Hyperlipidemia Diabetes Mycosis fungoides, on chemo outpatient PLAN: Continue current cardiac medications Discontinue IV heparin. Begin Eliquis 5 mg twice a day Patient is stable for discharge home today from a cardiac standpoint He is to follow-up postdischarge with Dr. Kyle Nurse practitioner note has been reviewed by physician. Signing provider agrees with the documented findings, assessment, and plan of care documented by DISA[employer] RECOV[employer] CONSULTANT as a scribe. Objective - Vital Signs Vital signs: Vital Signs Temp 98.7 F 03/06/24 08:00 Pulse 70 03/06/24 08:00 Resp 17 03/06/24 08:00 BP 132/67 03/06/24 08:00 Pulse Ox 95 03/06/24 08:00 FiO2 Intake & Output 03/05/24 03/06/24 03/06/24 18:59 06:59 18:59 Intake Total 666.7 352.333 Balance 666.7 352.333 Intake: IV 300 Intake, IV Titration 246.7 112.333 Amount Heparin Sod,Pork in 0.45% 112.333 NaCl 25,000 unit In 0.45 % NaCl 1 250ml.bag @ 9. 407 UNITS/KG/HR 10 mls/hr IV .Q24H [facility] Rx#: [id number] Heparin Sod,Pork in 0.45% 246.7 NaCl 25,000 unit In 0.45 % NaCl 1 250ml.bag @ 9. 524 UNITS/KG/HR 10 mls/hr IV .Q24H [facility] Rx#: [id number] Oral 120 240 Other: Voiding Method Toilet Toilet Toilet Urinal Urinal Urinal # Voids 2 1 - Labs CBC & Chem 7: 03/04/24 06:02 03/05/24 14:25 Labs: Abnormal Lab Results - Last 24 Hours (Table) 03/05/24 03/05/24 03/05/24 Range/Units 10:52 11:32 14:25 APTT (22.0-30.0) sec Chloride 115 H 114 H (98-107) mmol/L Carbon Dioxide 20 L 18 L (22-30) mmol/L Glucose 248 H 271 H (74-99) mg/dL POC Glucose (mg/dL) 231 H (70-110) mg/dL Calcium 7.8 L 7.7 L (8.4-10.2) mg/dL Total Bilirubin 1.5 H (0.2-1.3) mg/dL AST 71 H (17-59) U/L ALT 76 H (4-49) U/L Alkaline Phosphatase 146 H (38-126) U/L Total Protein 5.4 L (6.3-8.2) g/dL Albumin 2.6 L (3.5-5.0) g/dL 03/05/24 03/05/24 03/06/24 Range/Units 16:29 19:59 02:34 APTT 45.5 H (22.0-30.0) sec Chloride (98-107) mmol/L Carbon Dioxide (22-30) mmol/L Glucose (74-99) mg/dL POC Glucose (mg/dL) 282 H 223 H (70-110) mg/dL Calcium (8.4-10.2) mg/dL Total Bilirubin (0.2-1.3) mg/dL AST (17-59) U/L ALT (4-49) U/L Alkaline Phosphatase (38-126) U/L Total Protein (6.3-8.2) g/dL Albumin (3.5-5.0) g/dL 03/06/24 Range/Units 06:07 APTT (22.0-30.0) sec Chloride (98-107) mmol/L Carbon Dioxide (22-30) mmol/L Glucose (74-99) mg/dL POC Glucose (mg/dL) 208 H (70-110) mg/dL Calcium (8.4-10.2) mg/dL Total Bilirubin (0.2-1.3) mg/dL AST (17-59) U/L ALT (4-49) U/L Alkaline Phosphatase (38-126) U/L Total Protein (6.3-8.2) g/dL Albumin (3.5-5.0) g/dL
[2024-03-06 11:42] LABS: Glucose,Whole Blood 204 mg/dL (70-110)
--- NOTE | 2024-03-06 12:08 | P.PN ---
Subjective Progress Note Date: 03/06/24 Principal diagnosis: Abdominal pain, colitis This is a pleasant 73-year-old male who presented to the emergency department as a transfer from [facility] with complaints of feeling weak and some abdominal and chest discomfort. He has a past medical history for diabetes hy pertension, and dyslipidemia. Patient was transferred to this facility for new onset atrial fibrillation and elevated troponins. Apparently patient had been started on Cardizem and was converted back to normal sinus rhythm. He states he also has some abdominal discomfort and some area over the last couple days duration. He is scheduled to undergo cardiac catheterization. He had a CT of the abdomen pelvis on admission reporting edema in the fat surrounding the right colon which may represent a nonspecific colitis. Large nonobstructing left renal calculus no hydronephrosis or ureteral calculus. Gastroenterology was consulted for abdominal pain and possible colitis. He denies any blood in his stool. He denies any abdominal pain, shortness of breath or chest pain at this time. Most recent labs WBC 3.9 hemoglobin 11.0 hematocrit 30 platelet count 115,000 sodium 142 potassium 3.9 BUN 18 creatinine 1.0 total bilirubin 1.5 AST 71 ALT 76 alkaline phosphatase 146 03/09/2024 Patient is seen and examined today as a follow-up. He is sitting up in bed. He denies any abdominal pain, nausea or vomiting. Denies any diarrhea. He is currently on a heparin drip. Underwent cardiac catheterization yesterday. Objective - Vital Signs Vital signs: Vital Signs Temp 98.2 F 03/06/24 04:00 Pulse 80 03/06/24 02:00 Resp 16 03/06/24 04:00 BP 130/60 03/06/24 04:00 Pulse Ox 94 L 03/06/24 04:00 FiO2 Intake & Output 03/05/24 03/06/24 03/06/24 18:59 06:59 18:59 Intake Total 666.7 Balance 666.7 Intake: IV 300 Intake, IV Titration 246.7 Amount Heparin Sod,Pork in 0.45% 246.7 NaCl 25,000 unit In 0.45 % NaCl 1 250ml.bag @ 9. 524 UNITS/KG/HR 10 mls/hr IV .Q24H [facility] Rx#: [id number] Oral 120 Other: Voiding Method Toilet Toilet Urinal Urinal # Voids 2 1 - Exam General appearance: The patient is alert, oriented, appears in no acute distress. HET: Head is normocephalic and atraumatic. Conjunctiva pink. Sclera anicteric. Neck: Supple without lymphadenopathy. Abdomen: Soft, nontender, nondistended with bowel sounds. No guarding or rigidity. Extremities: Normal skin color and turgor. No pedal edema Skin: No rashes, no jaundice Neurological: No focal deficits. Alert and oriented. - Labs CBC & Chem 7: 03/04/24 06:02 03/05/24 14:25 Labs: Abnormal Lab Results - Last 24 Hours (Table) 03/05/24 03/05/24 03/05/24 Range/Units 10:52 11:32 14:25 APTT (22.0-30.0) sec Chloride 115 H 114 H (98-107) mmol/L Carbon Dioxide 20 L 18 L (22-30) mmol/L Glucose 248 H 271 H (74-99) mg/dL POC Glucose (mg/dL) 231 H (70-110) mg/dL Calcium 7.8 L 7.7 L (8.4-10.2) mg/dL Total Bilirubin 1.5 H (0.2-1.3) mg/dL AST 71 H (17-59) U/L ALT 76 H (4-49) U/L Alkaline Phosphatase 146 H (38-126) U/L Total Protein 5.4 L (6.3-8.2) g/dL Albumin 2.6 L (3.5-5.0) g/dL 03/05/24 03/05/24 03/06/24 Range/Units 16:29 19:59 02:34 APTT 45.5 H (22.0-30.0) sec Chloride (98-107) mmol/L Carbon Dioxide (22-30) mmol/L Glucose (74-99) mg/dL POC Glucose (mg/dL) 282 H 223 H (70-110) mg/dL Calcium (8.4-10.2) mg/dL Total Bilirubin (0.2-1.3) mg/dL AST (17-59) U/L ALT (4-49) U/L Alkaline Phosphatase (38-126) U/L Total Protein (6.3-8.2) g/dL Albumin (3.5-5.0) g/dL 03/06/24 Range/Units 06:07 APTT (22.0-30.0) sec Chloride (98-107) mmol/L Carbon Dioxide (22-30) mmol/L Glucose (74-99) mg/dL POC Glucose (mg/dL) 208 H (70-110) mg/dL Calcium (8.4-10.2) mg/dL Total Bilirubin (0.2-1.3) mg/dL AST (17-59) U/L ALT (4-49) U/L Alkaline Phosphatase (38-126) U/L Total Protein (6.3-8.2) g/dL Albumin (3.5-5.0) g/dL Assessment and Plan (1) Abdominal pain Narrative/Plan: 73-year-old male transferred from outside hospital for new onset atrial fibrillation with abdominal and chest pain who underwent cardiac catheterization with finding of mild to moderate triple-vessel disease and was also and new onset atrial fibrillation. Patient did have some diarrhea and abdominal discomfort as well which could be secondary to mild colitis or gastroenteritis. Patient is without any further discomfort. No further diarrhea. He did recently have a colonoscopy with Dr. Greene in 2021 with findings of small hemorrhoids and diverticulosis. No plans at this time for any further workup or endoscopic evaluation. Current Visit: Yes Status: Acute Code(s): R10.9 - UNSPECIFIED ABDOMINAL PAIN SNOMED Code(s): 36696980 (2) Elevated LFTs Narrative/Plan: Unclear etiology of LFTs, continue to trend. Patient can follow-up with gastroenterology after discharge. Current Visit: Yes Status: Acute Code(s): R79.89 - OTHER SPECIFIED ABNORMAL FINDINGS OF BLOOD CHEMISTRY SNOMED Code(s): 057886942 (3) Chest pain Narrative/Plan: Cardiology following patient underwent cardiac catheterization with findings of mild to moderate triple-vessel disease Current Visit: No Status: Acute Code(s): R07.9 - CHEST PAIN, UNSPECIFIED SNOMED Code(s): 29538576 Plan: 1. Continue symptomatic and supportive care 2. Diet as tolerated 3. Protonix 40 mg daily for GI prophylaxis 4. Trend LFTs 5. No plans on endoscopic evaluation at this time. If symptoms persist patient can follow-up as an outpatient 6. Continue with recommendations from cardiology 7. Recommend patient follow-up with gastroenterology after discharge for LFT elevation Thank you for allowing us to participate in the care of the patient, the GI service will sign off, gastroenterology will not be available at the hospital this weekend and through next week. If further evaluation by gastroenterology is required the patient will need transfer as per the primary team's discretion. Dr. Terra Kasper I agree with the dictator's note, documented as a scribe by Agnes Miles.
[2024-03-06 13:18] LABS: ALT 79 U/L (4-49); AST 81 U/L (17-59); African American GFR (CKD) >90 (>60 ml/min/1.73 sqM); Albumin 2.5 g/dL (3.5-5.0); Alkaline Phosphatase 141 U/L (38-126); Anion Gap 9 mmol/L; Blood Urea Nitrogen 18 mg/dL (9-20); Calcium 7.5 mg/dL (8.4-10.2); Carbon Dioxide 18 mmol/L (22-30); Chloride 113 mmol/L (98-107); Glucose 208 mg/dL (74-99); Non-African American GFR(CKD) 85 (>60 ml/min/1.73 sqM); Sodium 140 mmol/L (137-145); Total Bilirubin 1.6 mg/dL (0.2-1.3); Total Protein 5.4 g/dL (6.3-8.2)
[2024-03-06 13:22] LABS: HCT 31.5 % (39.0-53.0); MCH 32.4 pg (25.0-35.0); MCV 92.4 fL (80.0-100.0); Mean Platelet Volume 10.9; Platelet Count 135 k/uL (150-450); RBC 3.41 m/uL (4.30-5.90); RDW 14.4 % (11.5-15.5); WBC 5.2 k/uL (3.8-10.6)
[2024-03-06 13:38] LABS: Band Neutrophils % 1 %; Lymphocytes # (M) 0.16 k/uL (1.0-4.8); Monocytes # (M) 1.46 k/uL (0-1.0); Neutrophils % (M) 68 %; Nucleated Red Blood Cells 0 /100 WBC (0-0); Total Cells Counted 100
[2024-03-06 13:54] LABS: Anisocytosis (M) Present
--- NOTE | 2024-03-06 14:34 | P.PN ---
Subjective Progress Note Date: 03/06/24 CHIEF COMPLAINT: Abdominal pain HISTORY OF PRESENT ILLNESS: Patient's abdominal pain has resolved. He is tolerating diet. He has had bowel movements. GI service is not planning any endoscopy. Patient reports that he is going home today. Afebrile. WBC 5.2 elevated LFTs GI service is following and recommending follow-up in the outpatient setting. Patient's status post heart catheterization yesterday with mild to moderate triple-vessel disease and they recommended medical management.. Cardiology has cleared him for discharge. PHYSICAL EXAM: VITAL SIGNS: Reviewed. GENERAL: Well-developed in no acute distress. HEENT: No sclera icterus. Extraocular movements grossly intact. Moist buccal mucosa. Head is atraumatic, normocephalic. ABDOMEN: Soft. Nondistended. Nontender. NEUROLOGIC: Alert and oriented. Cranial nerves II through XII grossly intact. ASSESSMENT: 1. Umbilical abdominal pain resolved 2. Mild gastroenteritis or colitis. Edema in the fat surrounding the right colon which may represent a nonspecific colitis noted on CT scan 3. Elevated troponins 4. Elevated LFTs and total bilirubin 5. Hepatomegaly PLAN: -Abdominal pain resolved. Patient tolerating diet. -Patient can be discharged from surgical standpoint when medically cleared -Recommend follow-up outpatient with GI service Physician Agency Trainer note has been reviewed by physician. Signing provider agrees with the documented findings, assessment, and plan of care. Objective - Vital Signs Vital signs: Vital Signs Temp 98.2 F 03/06/24 12:00 Pulse 71 03/06/24 12:00 Resp 18 03/06/24 12:00 BP 110/61 03/06/24 12:00 Pulse Ox 96 03/06/24 12:00 FiO2 Intake & Output 03/05/24 03/06/24 03/06/24 18:59 06:59 18:59 Intake Total 666.7 357.333 Balance 666.7 357.333 Intake: IV 300 5 Invasive Line 3 5 Intake, IV Titration 246.7 112.333 Amount Heparin Sod,Pork in 0.45% 112.333 NaCl 25,000 unit In 0.45 % NaCl 1 250ml.bag @ 9. 407 UNITS/KG/HR 10 mls/hr IV .Q24H [facility] Rx#: [id number] Heparin Sod,Pork in 0.45% 246.7 NaCl 25,000 unit In 0.45 % NaCl 1 250ml.bag @ 9. 524 UNITS/KG/HR 10 mls/hr IV .Q24H [facility] Rx#: [id number] Oral 120 240 Other: Voiding Method Toilet Toilet Toilet Urinal Urinal Urinal # Voids 2 1 - Labs CBC & Chem 7: 03/06/24 12:42 03/06/24 12:42 Labs: Abnormal Lab Results - Last 24 Hours (Table) 03/05/24 03/05/24 03/05/24 Range/Units 14:25 16:29 19:59 RBC (4.30-5.90) m/uL Hgb (13.0-17.5) gm/dL Hct (39.0-53.0) % Plt Count (150-450) k/uL APTT (22.0-30.0) sec Chloride 114 H (98-107) mmol/L Carbon Dioxide 18 L (22-30) mmol/L Glucose 271 H (74-99) mg/dL POC Glucose (mg/dL) 282 H 223 H (70-110) mg/dL Calcium 7.7 L (8.4-10.2) mg/dL Total Bilirubin (0.2-1.3) mg/dL AST (17-59) U/L ALT (4-49) U/L Alkaline Phosphatase (38-126) U/L Total Protein (6.3-8.2) g/dL Albumin (3.5-5.0) g/dL 03/06/24 03/06/24 03/06/24 Range/Units 02:34 06:07 11:41 RBC (4.30-5.90) m/uL Hgb (13.0-17.5) gm/dL Hct (39.0-53.0) % Plt Count (150-450) k/uL APTT 45.5 H (22.0-30.0) sec Chloride (98-107) mmol/L Carbon Dioxide (22-30) mmol/L Glucose (74-99) mg/dL POC Glucose (mg/dL) 208 H 204 H (70-110) mg/dL Calcium (8.4-10.2) mg/dL Total Bilirubin (0.2-1.3) mg/dL AST (17-59) U/L ALT (4-49) U/L Alkaline Phosphatase (38-126) U/L Total Protein (6.3-8.2) g/dL Albumin (3.5-5.0) g/dL 03/06/24 03/06/24 Range/Units 12:42 12:42 RBC 3.41 L (4.30-5.90) m/uL Hgb 11.0 L (13.0-17.5) gm/dL Hct 31.5 L (39.0-53.0) % Plt Count 135 L (150-450) k/uL APTT (22.0-30.0) sec Chloride 113 H (98-107) mmol/L Carbon Dioxide 18 L (22-30) mmol/L Glucose 208 H (74-99) mg/dL POC Glucose (mg/dL) (70-110) mg/dL Calcium 7.5 L (8.4-10.2) mg/dL Total Bilirubin 1.6 H (0.2-1.3) mg/dL AST 81 H (17-59) U/L ALT 79 H (4-49) U/L Alkaline Phosphatase 141 H (38-126) U/L Total Protein 5.4 L (6.3-8.2) g/dL Albumin 2.5 L (3.5-5.0) g/dL
--- NOTE | 2024-03-06 14:50 | CDI ---
Date: 03/06/2024 From: Rafaela Bowers Phone: [phone] Admit Date: 03/02/2024 05:23:00 PM Patient Name: Carlos Cohen Visit Number: [id number] Discharge Date: ATTENTION: The Clinical Documentation Specialists (CDI) and [facility] Coding Staff appreciate your assistance in clarifying documentation. Please respond to the clarification below the line at the bottom and electronically sign. The CDI & [facility] Coding staff will review the response and follow-up if needed. Please note: Queries are made part of the Legal Health Record. If you have any questions, please contact the author of this message via ITS. Dr. Meera Kyle Your patient has troponin level(s) of: 1.790 on 03/02 and 0.866, 0.867 on 03/03. Please clarify if there is an additional diagnosis and/or clinical significance related to this value. Patient history/risk factors: DM, HTN, Overweight who presents from another facility with feeling weak and with abdominal and chest discomfort Clinical indicators: 03/02 Admission VS: 114/73, 98.4, 89, 14, 95% 2 liters nasal cannula 03/03 H&P, Assessment: "Atrial fibrillation RVR, elevated troponins." 03/03 Cardiology consult, Assessment:" Evidence of myocardial injury" 03/04 Cardiology PN, Assessment: "Elevated troponins, Type I versus Type II LA" 03/05 Cardiac Catheterization note, Conclusion: "1. Mild to moderate triple- vessel disease 2. Calcified LAD." Recommendations: "Troponin elevation could be related to the acute renal injury and paroxysmal atrial fibrillation." 03/03 ECHO, EF 65-70% Treatment: Monitor troponins, Heart catheterization Heparin titrated drip 12/02-03/04 Metoprolol 50mg oral daily 03/02-no other doses and dc'd 03/05, resumed BID on 03/05 Cozaar 100mg oral daily start 03/03 Is there an additional diagnosis and/or clinical significance related to the above lab result/information: [ ] NSTEMI type 1 [ ] Type 2 LA due to (specify cause ____) [ xx] Non-ischemic with acute myocardial injury [ ] No additional diagnosis/Not clinically significant [ ] Other, please specify [ ] Unable to determine Reference: [employer] Fourth [place] Definition of Myocardial Infraction Elevated Cardiac Troponin >99th percentile with Troponin rise and/or fall With Acute ischemia o Acute Myocardial Infarction ? Atherosclerosis thrombosis Type I LA ? Oxygen supply and demand imbalance Type II LA (Please indicate etiology) Without acute ischemia o Acute Myocardial Injury MTDD
--- NOTE | 2024-03-06 14:53 | P.PN ---
Subjective Progress Note Date: 03/06/24 * 73-year-old female multiple medical problems including diabetes, hypertension, and history of mycosis fungoides. Patient also sees Dr. Kyle on a regular basis, and he sees the analyst business analysis and the centrifugal drier operator also on a regular basis. * Patient was transferred from [facility], apparently he presented to the hospital with weakness, fatigue, some vague chest discomfort and abdominal discomfort. Underwent further investigation at [facility], and his EKG showed atrial fibrillation with RVR. Patient was given Cardizem bolus and placed on Cardizem drip, and he converted to sinus rhythm. Troponins were noted to be elevated, hence arrangements were made to transfer the patient to [facility]. * Patient was seen by cardiology did on on heparin for now because of his elevated troponin. * EKG on admission showed sinus rhythm, nonspecific ST changes in the lateral leads. * On admission WBC count of 3.3 hemoglobin 11.1 basic metabolic profile is normal bicarb is a bit low at 16 anion gap is normal BUN is 28 creatinine 1.13, troponin this morning is trending down to 0.86 from 1.79 * CT of the chest showed some pulmonary vascular prominence and small bilateral pleural effusions * 03/04/2024, Patient continues to have some vague abdominal discomfort, CT of the chest question colitis, however patient has been up-to-date on his colonoscopies and his last colonoscopy was in [address] Holt, and this showed mostly diverticular disease and hemorrhoids. * 03/05/2024, patient had also a brief run earlier of atrial fibrillation, remains on IV heparin, Cardiac catheterization there was minimal to moderate coronary artery disease, no need for intervention recommendation is medical therapy. * 03/06/24 Dr Palmer resumed care : Patient has been rate controlled heart rate in 70s, transition to oral Eliquis seen by cardiology. Blood work trend reviewed, vitals reviewed PHYSICAL EXAMINATION: GENERAL: The patient is alert and oriented x3, not in any acute distress. Well developed, well nourished. HEENT: Pupils are round and equally reacting to light. EOMI. CARDIOVASCULAR: S1 and S2 present. No murmurs, rubs, or gallops. PULMONARY: Chest is clear to auscultation, no wheezing or crackles. ABDOMEN: Soft, nontender, nondistended, normoactive bowel sounds. No palpable organomegaly. MUSCULOSKELETAL: No joint swelling or deformity. EXTREMITIES: No cyanosis, clubbing, or pedal edema. NEUROLOGICAL: Gross neurological examination did not reveal any focal deficits. SKIN: No rashes. Assessment and plan New onset atrial fibrillation with rapid ventricle response Non-ST elevated UT status postcardiac catheterization nonocclusive coronary artery disease Right colon colitis Acute kidney injury prerenal in origin Diabetes mellitus type 2 * In regards to atrial fibrillation continue rate control, continue patient on metoprolol, patient transition to Eliquis * Regards to colitis patient seen by general surgery conservative management advance diet as tolerated * Regards to coronary artery disease continue medical management including Lipitor, Eliquis, losartan, metoprolol * In regards to diabetes mellitus Accu-Cheks ACHS continue NovoLog and Levemir Objective - Vital Signs Vital signs: Vital Signs Temp 98.7 F 03/06/24 08:00 Pulse 70 03/06/24 08:00 Resp 17 03/06/24 08:00 BP 132/67 03/06/24 08:00 Pulse Ox 95 03/06/24 08:00 FiO2 Intake & Output 03/05/24 03/06/24 03/06/24 18:59 06:59 18:59 Intake Total 666.7 352.333 Balance 666.7 352.333 Intake: IV 300 Intake, IV Titration 246.7 112.333 Amount Heparin Sod,Pork in 0.45% 112.333 NaCl 25,000 unit In 0.45 % NaCl 1 250ml.bag @ 9. 407 UNITS/KG/HR 10 mls/hr IV .Q24H [facility] Rx#: [id number] Heparin Sod,Pork in 0.45% 246.7 NaCl 25,000 unit In 0.45 % NaCl 1 250ml.bag @ 9. 524 UNITS/KG/HR 10 mls/hr IV .Q24H [facility] Rx#: [id number] Oral 120 240 Other: Voiding Method Toilet Toilet Toilet Urinal Urinal Urinal # Voids 2 1 - Labs CBC & Chem 7: 03/06/24 12:42 03/06/24 12:42 Labs: Abnormal Lab Results - Last 24 Hours (Table) 03/05/24 03/05/24 03/05/24 Range/Units 10:52 11:32 14:25 APTT (22.0-30.0) sec Chloride 115 H 114 H (98-107) mmol/L Carbon Dioxide 20 L 18 L (22-30) mmol/L Glucose 248 H 271 H (74-99) mg/dL POC Glucose (mg/dL) 231 H (70-110) mg/dL Calcium 7.8 L 7.7 L (8.4-10.2) mg/dL Total Bilirubin 1.5 H (0.2-1.3) mg/dL AST 71 H (17-59) U/L ALT 76 H (4-49) U/L Alkaline Phosphatase 146 H (38-126) U/L Total Protein 5.4 L (6.3-8.2) g/dL Albumin 2.6 L (3.5-5.0) g/dL 03/05/24 03/05/24 03/06/24 Range/Units 16:29 19:59 02:34 APTT 45.5 H (22.0-30.0) sec Chloride (98-107) mmol/L Carbon Dioxide (22-30) mmol/L Glucose (74-99) mg/dL POC Glucose (mg/dL) 282 H 223 H (70-110) mg/dL Calcium (8.4-10.2) mg/dL Total Bilirubin (0.2-1.3) mg/dL AST (17-59) U/L ALT (4-49) U/L Alkaline Phosphatase (38-126) U/L Total Protein (6.3-8.2) g/dL Albumin (3.5-5.0) g/dL 03/06/24 Range/Units 06:07 APTT (22.0-30.0) sec Chloride (98-107) mmol/L Carbon Dioxide (22-30) mmol/L Glucose (74-99) mg/dL POC Glucose (mg/dL) 208 H (70-110) mg/dL Calcium (8.4-10.2) mg/dL Total Bilirubin (0.2-1.3) mg/dL AST (17-59) U/L ALT (4-49) U/L Alkaline Phosphatase (38-126) U/L Total Protein (6.3-8.2) g/dL Albumin (3.5-5.0) g/dL
[2024-03-06] MEDS: FUROSEMIDE 10 MG/ML 4 ML VIAL IV SCH (15:24)
--- NOTE | 2024-03-06 15:35 | P.PN ---
Subjective Progress Note Date: 03/06/24 This is a 73-year-old female whom I see in the office on a regular basis. I have seen this patient for his multiple medical problems including diabetes, hypertension, and history of mycosis fungoides. Patient also sees Dr. Kyle on a regular basis, and he sees the buffing wheel operator and the oxyacetylene burner also on a regular basis. Patient was transferred yesterday from [facility], apparently he presented to the hospital with weakness, fatigue, some vague chest discomfort and abdominal discomfort. Patient has not been eating and drinking much for the last few days, and he was felt to be dehydrated. Underwent further investigation at [facility], and his EKG showed atrial fibrillation with RVR. Patient was given Cardizem bolus and placed on Cardizem drip, and he converted to sinus rhythm. Troponins were noted to be elevated, hence arrangements were made to transfer the patient to [facility]. Patient was supposed to go to [facility]. however he was admitted to the ICU as an overflow. I saw this patient today, and I have known this patient for many years. He is he feels generally weak, has some vague abdominal discomfort and chest discomfort. Does not seem to be in any distress. Patient is receiving:, He is on room air, receiving fluids in the form of 0.9 normal saline at 125 cc/h, he has some vague abdominal discomfort and abdominal ultrasound is pending. Patient was seen by cardiology and The patient on heparin for now because of his elevated troponin. Patient had no previous documented history of atrial fibrillation, and no history of underlying coronary artery disease. EKG on admission showed sinus rhythm, nonspecific ST changes in the lateral leads. Labs this morning show WBC count of 3.3 hemoglobin 11.1 basic metabolic profile is normal bicarb is a bit low at 16 anion gap is normal BUN is 28 creatinine 1.13, troponin this morning is trending down to 0.[address] of the chest showed some pulmonary vascular prominence and small bilateral pleural effusions Patient was today on 03/04/2024, patient is feeling much better today, relatively asymptomatic, he is in sinus rhythm, he is hemodynamically stable, not in any distress, patient is on room air. Patient continues to have some vague abdominal discomfort, CT of the chest question colitis, however patient has been up-to-date on his colonoscopies and his last colonoscopy was in [address] Holt, and this showed mostly diverticular disease and hemorrhoids. Patient denies any nausea or vomiting, denies any diarrhea, I believe the findings on the CT of the abdomen and pelvis are nonspecific. Patient does have a nonocclusive renal calculus, could be addressed on outpatient basis by urology. WBC count is 3.9 hemoglobin is 11. His troponin has been trending down to 0.867 blood sugar is 282 today. Patient was seen by cardiology today, and is scheduled to undergo cardiac catheterization tomorrow Reevaluate today on 03/05/2024, patient is doing well, asymptomatic, denies any shortness of breath cough wheezing denies any chest pain. Apparently the patien t had also a brief run earlier of atrial fibrillation, he remains on IV heparin, otherwise he is in sinus rhythm most of the time. Cardiac catheterization was done today, there was minimal to moderate coronary artery disease, no need for intervention, the recommendation is medical therapy. Labs today were all reviewed including his basic metabolic profile and renal profile they seem to be relatively normal. The patient is seen today March 06, 2024 in follow-up on the selective care unit. He is currently laying flat in bed. Awake and alert in no acute distress. He is maintaining good O2 saturations in the 90s on room air. He is afebrile. Hemodynamically stable. White count 5.2. Hemoglobin 11.0. Platelets 135. Sodium 140. Potassium 4.0. Bicarb 18. BUN 18. Creatinine 0.87. Glucose 208. AST 81. ALT 79. Alk phos 141. He is continued on bronchodilators. Remains on IV diuretics. Anticoagulated with Eliquis. Objective - Vital Signs Vital signs: Vital Signs Temp 98.2 F 03/06/24 12:00 Pulse 71 03/06/24 12:00 Resp 18 03/06/24 12:00 BP 110/61 03/06/24 12:00 Pulse Ox 96 03/06/24 12:00 FiO2 Intake & Output 03/05/24 03/06/24 03/06/24 18:59 06:59 18:59 Intake Total 666.7 582.333 Balance 666.7 582.333 Intake: IV 300 5 Invasive Line 3 5 Intake, IV Titration 246.7 337.333 Amount Heparin Sod,Pork in 0.45% 112.333 NaCl 25,000 unit In 0.45 % NaCl 1 250ml.bag @ 9. 407 UNITS/KG/HR 10 mls/hr IV .Q24H [facility] Rx#: [id number] Heparin Sod,Pork in 0.45% 246.7 NaCl 25,000 unit In 0.45 % NaCl 1 250ml.bag @ 9. 524 UNITS/KG/HR 10 mls/hr IV .Q24H [facility] Rx#: [id number] Sodium Chloride 0.9% 1, 225 000 ml @ 75 mls/hr IV . [id number] [facility] Rx#:[id number] Oral 120 240 Other: Voiding Method Toilet Toilet Toilet Urinal Urinal Urinal # Voids 2 1 - Exam General: Reveals 73-year-old male in no distress, on room air, resting comfortably in bed. Skin: Multiple dry scaly lesions noted in the face and in the lower extremities. Eye: Pupils are equal, round and reactive to light, extra-ocular movements are intact; there is normal conjunctiva bilaterally. Ears, nose, mouth and throat: There are moist mucous membranes and no oral lesions. Neck: The neck is supple, there is no tenderness or JVD. Cardiovascular: There is a regular rate and rhythm. No murmur, rub or gallop is appreciated. Respiratory: Clear bilaterally no rhonchi no wheezes Gastrointestinal: Soft, non-distended, non-tender abdomen without masses or organomegaly noted. There is no rebound or guarding present. Bowel sounds are unremarkable. Musculoskeletal: No deformities and no limitation range of motion Neurological: Alert and oriented x 3 no gross focal deficit. Psychiatric: Cooperative, appropriate mood & affect, normal judgment. - Labs CBC & Chem 7: 03/06/24 12:42 03/06/24 12:42 Labs: Abnormal Lab Results - Last 24 Hours (Table) 03/05/24 03/05/24 03/06/24 Range/Units 16:29 19:59 02:34 RBC (4.30-5.90) m/uL Hgb (13.0-17.5) gm/dL Hct (39.0-53.0) % Plt Count (150-450) k/uL Lymphocytes # (Manual) (1.0-4.8) k/uL Monocytes # (Manual) (0-1.0) k/uL APTT 45.5 H (22.0-30.0) sec Chloride (98-107) mmol/L Carbon Dioxide (22-30) mmol/L Glucose (74-99) mg/dL POC Glucose (mg/dL) 282 H 223 H (70-110) mg/dL Calcium (8.4-10.2) mg/dL Total Bilirubin (0.2-1.3) mg/dL AST (17-59) U/L ALT (4-49) U/L Alkaline Phosphatase (38-126) U/L Total Protein (6.3-8.2) g/dL Albumin (3.5-5.0) g/dL 03/06/24 03/06/24 03/06/24 Range/Units 06:07 11:41 12:42 RBC (4.30-5.90) m/uL Hgb (13.0-17.5) gm/dL Hct (39.0-53.0) % Plt Count (150-450) k/uL Lymphocytes # (Manual) (1.0-4.8) k/uL Monocytes # (Manual) (0-1.0) k/uL APTT (22.0-30.0) sec Chloride 113 H (98-107) mmol/L Carbon Dioxide 18 L (22-30) mmol/L Glucose 208 H (74-99) mg/dL POC Glucose (mg/dL) 208 H 204 H (70-110) mg/dL Calcium 7.5 L (8.4-10.2) mg/dL Total Bilirubin 1.6 H (0.2-1.3) mg/dL AST 81 H (17-59) U/L ALT 79 H (4-49) U/L Alkaline Phosphatase 141 H (38-126) U/L Total Protein 5.4 L (6.3-8.2) g/dL Albumin 2.5 L (3.5-5.0) g/dL 03/06/24 Range/Units 12:42 RBC 3.41 L (4.30-5.90) m/uL Hgb 11.0 L (13.0-17.5) gm/dL Hct 31.5 L (39.0-53.0) % Plt Count 135 L (150-450) k/uL Lymphocytes # (Manual) 0.16 L (1.0-4.8) k/uL Monocytes # (Manual) 1.46 H (0-1.0) k/uL APTT (22.0-30.0) sec Chloride (98-107) mmol/L Carbon Dioxide (22-30) mmol/L Glucose (74-99) mg/dL POC Glucose (mg/dL) (70-110) mg/dL Calcium (8.4-10.2) mg/dL Total Bilirubin (0.2-1.3) mg/dL AST (17-59) U/L ALT (4-49) U/L Alkaline Phosphatase (38-126) U/L Total Protein (6.3-8.2) g/dL Albumin (3.5-5.0) g/dL Assessment and Plan Assessment: New onset atrial fibrillation with RVR resolved, presently in sinus rhythm Acute non-ST elevation myocardial infarction, cardiac catheterization showed minimal to moderate coronary artery disease, recommendation is medical therapy, no intervention is felt to be necessary for Acute dehydration, most likely secondary to poorly controlled diabetes and decreased p.o. intake. Resolved Acute kidney injury probably related to dehydration, improving. Type 2 diabetes. Abdominal pain, chronic, current on his colonoscopy his last colonoscopy was in October 19, 2022 but this could be addressed on outpatient basis and follow-up with gastroenterology Plan: The patient was seen and evaluated He remains stable and on room air Labs and medications reviewed Cleared for discharge from the pulmonary standpoint Will follow-up in our office in 1 week I have personally seen and examined the patient, performed the documentation and the assessment and plan as written. Number of minutes spent on the visit: 10.
[2024-03-06] MEDS: SIMETHICONE 80 MG CHEWABLE PO SCH (16:16)
[2024-03-06] MEDS: NYSTATIN 100,000 UNIT/GM POWD 15 GM TOPICAL SCH (16:34)
[2024-03-06 17:02] LABS: Glucose,Whole Blood 209 mg/dL (70-110)
[2024-03-06 20:03] LABS: Glucose,Whole Blood 188 mg/dL (70-110)
[2024-03-06] MEDS: ATORVASTATIN 40 MG TAB PO SCH (21:16)
[2024-03-07] MEDS: MUPIROCIN 2% OINT 22 GM TUBE TOPICAL SCH (01:07)
[2024-03-07 06:19] LABS: Glucose,Whole Blood 196 mg/dL (70-110)
[2024-03-07 07:34] LABS: HCT 33.7 % (39.0-53.0); MCH 30.8 pg (25.0-35.0); MCHC 32.6 g/dL (31.0-37.0); MCV 94.6 fL (80.0-100.0); Platelet Count 192 k/uL (150-450); RBC 3.56 m/uL (4.30-5.90); RDW 14.4 % (11.5-15.5); WBC 6.3 k/uL (3.8-10.6)
[2024-03-07 07:39] LABS: African American GFR (CKD) >90 (>60 ml/min/1.73 sqM); Anion Gap 11 mmol/L; Blood Urea Nitrogen 19 mg/dL (9-20); Calcium 7.9 mg/dL (8.4-10.2); Carbon Dioxide 19 mmol/L (22-30); Chloride 111 mmol/L (98-107); Glucose 177 mg/dL (74-99); Non-African American GFR(CKD) 85 (>60 ml/min/1.73 sqM); Potassium 3.7 mmol/L (3.5-5.1); Sodium 141 mmol/L (137-145)
--- NOTE | 2024-03-07 11:47 | P.PN ---
Subjective Progress Note Date: 03/07/24 Principal diagnosis: Paroxysmal atrial fibrillation The patient is a pleasant 73-year-old gentleman with coronary artery disease and paroxysmal atrial fibrillation as well as hypertension and dyslipidemia was admitted to the hospital with generalized weakness and fatigue and he was diagnosed with acute coronary syndrome. He also was noted to be in and out atrial fibrillation which is new. He underwent a heart catheterization which revealed mild to moderate nonobstructive coronary artery disease. The echo shows normal LV systolic function with LVOT gradient. March 07, 2024 The patient was seen and evaluated this morning. Overall he is feeling better. He was noted to have edema in the lower extremities yesterday and he was started on Lasix IV. Overall he is feeling better. The weakness has improved. No pain in the chest and no shortness of breath. He is on oral anticoagulation. The examination revealed at least moderate bilateral lower extremities edema with regular rate and rhythm and clear breathing sounds bilaterally Assessment Coronary artery disease nonobstructive on recent heart catheterization Preserved LV systolic function Paroxysmal atrial fibrillation Bilateral lower extremities edema Multiple comorbid conditions Plan I would suggest keeping the patient on IV Lasix for additional 24 hours Continue oral anticoagulation Continue metoprolol Follow-up with the patient Objective - Vital Signs Vital signs: Vital Signs Temp 98.0 F 03/07/24 08:02 Pulse 76 03/07/24 08:02 Resp 18 03/07/24 08:02 BP 138/69 03/07/24 08:02 Pulse Ox 96 03/07/24 08:02 FiO2 Intake & Output 03/06/24 03/07/24 03/07/24 18:59 06:59 18:59 Intake Total 582.333 5 118 Balance 582.333 5 118 Intake: IV 5 5 Invasive Line 3 5 5 Intake, IV Titration 337.333 Amount Heparin Sod,Pork in 0.45% 112.333 NaCl 25,000 unit In 0.45 % NaCl 1 250ml.bag @ 9. 407 UNITS/KG/HR 10 mls/hr IV .Q24H [facility] Rx#: [id number] Sodium Chloride 0.9% 1, 225 000 ml @ 75 mls/hr IV . [id number] [facility] Rx#:[id number] Oral 240 118 Other: Voiding Method Toilet Toilet Toilet Urinal Urinal Urinal # Voids 1 # Bowel Movements 1 - Labs CBC & Chem 7: 03/07/24 06:33 03/07/24 06:33 Labs: Abnormal Lab Results - Last 24 Hours (Table) 03/06/24 03/06/24 03/06/24 Range/Units 12:42 12:42 17:01 RBC 3.41 L (4.30-5.90) m/uL Hgb 11.0 L (13.0-17.5) gm/dL Hct 31.5 L (39.0-53.0) % Plt Count 135 L (150-450) k/uL Lymphocytes # (Manual) 0.16 L (1.0-4.8) k/uL Monocytes # (Manual) 1.46 H (0-1.0) k/uL Chloride 113 H (98-107) mmol/L Carbon Dioxide 18 L (22-30) mmol/L Glucose 208 H (74-99) mg/dL POC Glucose (mg/dL) 209 H (70-110) mg/dL Calcium 7.5 L (8.4-10.2) mg/dL Total Bilirubin 1.6 H (0.2-1.3) mg/dL AST 81 H (17-59) U/L ALT 79 H (4-49) U/L Alkaline Phosphatase 141 H (38-126) U/L Total Protein 5.4 L (6.3-8.2) g/dL Albumin 2.5 L (3.5-5.0) g/dL 03/06/24 03/07/24 03/07/24 Range/Units 20:02 06:15 06:33 RBC 3.56 L (4.30-5.90) m/uL Hgb 11.0 L (13.0-17.5) gm/dL Hct 33.7 L (39.0-53.0) % Plt Count (150-450) k/uL Lymphocytes # (Manual) (1.0-4.8) k/uL Monocytes # (Manual) (0-1.0) k/uL Chloride (98-107) mmol/L Carbon Dioxide (22-30) mmol/L Glucose (74-99) mg/dL POC Glucose (mg/dL) 188 H 196 H (70-110) mg/dL Calcium (8.4-10.2) mg/dL Total Bilirubin (0.2-1.3) mg/dL AST (17-59) U/L ALT (4-49) U/L Alkaline Phosphatase (38-126) U/L Total Protein (6.3-8.2) g/dL Albumin (3.5-5.0) g/dL 03/07/24 Range/Units 06:33 RBC (4.30-5.90) m/uL Hgb (13.0-17.5) gm/dL Hct (39.0-53.0) % Plt Count (150-450) k/uL Lymphocytes # (Manual) (1.0-4.8) k/uL Monocytes # (Manual) (0-1.0) k/uL Chloride 111 H (98-107) mmol/L Carbon Dioxide 19 L (22-30) mmol/L Glucose 177 H (74-99) mg/dL POC Glucose (mg/dL) (70-110) mg/dL Calcium 7.9 L (8.4-10.2) mg/dL Total Bilirubin (0.2-1.3) mg/dL AST (17-59) U/L ALT (4-49) U/L Alkaline Phosphatase (38-126) U/L Total Protein (6.3-8.2) g/dL Albumin (3.5-5.0) g/dL
[2024-03-07 11:57] LABS: Glucose,Whole Blood 208 mg/dL (70-110)
[2024-03-07] MEDS ORDERED: INSPUCOR MISCELLANE PRN (12:35)
[2024-03-07] MEDS ORDERED: INSULIN ASPART (NovoLOG) 100 UNIT/ML VIAL SQ PRN (12:35)
[2024-03-07] MEDS ORDERED: INSULIN PUMP BASAL RATES 1 EACH MISC MISCELLANE PRN (12:35)
--- NOTE | 2024-03-07 13:12 | P.PN ---
Subjective Progress Note Date: 03/07/24 * 73-year-old female multiple medical problems including diabetes, hypertension, and history of mycosis fungoides. Patient also sees Dr. Kyle on a regular basis, and he sees the social media intern and the retail associate manager bilingual also on a regular basis. * Patient was transferred from [facility], apparently he presented to the hospital with weakness, fatigue, some vague chest discomfort and abdominal discomfort. Underwent further investigation at [facility], and his EKG showed atrial fibrillation with RVR. Patient was given Cardizem bolus and placed on Cardizem drip, and he converted to sinus rhythm. Troponins were noted to be elevated, hence arrangements were made to transfer the patient to [facility]. * Patient was seen by cardiology did on on heparin for now because of his elevated troponin. * EKG on admission showed sinus rhythm, nonspecific ST changes in the lateral leads. * On admission WBC count of 3.3 hemoglobin 11.1 basic metabolic profile is normal bicarb is a bit low at 16 anion gap is normal BUN is 28 creatinine 1.13, troponin this morning is trending down to 0.86 from 1.79 * CT of the chest showed some pulmonary vascular prominence and small bilateral pleural effusions * 03/04/2024, Patient continues to have some vague abdominal discomfort, CT of the chest question colitis, however patient has been up-to-date on his colonoscopies and his last colonoscopy was in [address] Holt, and this showed mostly diverticular disease and hemorrhoids. * 03/05/2024, patient had also a brief run earlier of atrial fibrillation, remains on IV heparin, Cardiac catheterization there was minimal to moderate coronary artery disease, no need for intervention recommendation is medical therapy. * 03/06/24 Dr Palmer resumed care : Patient has been rate controlled heart rate in 70s, transition to oral Eliquis seen by cardiology. Blood work trend reviewed, vitals reviewed * 03/07/2024: Patient seen and evaluated bedside. On evaluation patient is awake and alert, right groin reviewed. Continue antibiotic. Continue IV Lasix PHYSICAL EXAMINATION: GENERAL: The patient is alert and oriented x3, not in any acute distress. Well developed, well nourished. HEENT: Pupils are round and equally reacting to light. EOMI. CARDIOVASCULAR: S1 and S2 present. No murmurs, rubs, or gallops. PULMONARY: Chest is clear to auscultation, no wheezing or crackles. ABDOMEN: Soft, nontender, nondistended, normoactive bowel sounds. No palpable organomegaly. MUSCULOSKELETAL: No joint swelling or deformity. EXTREMITIES: Lower extremity edema noted NEUROLOGICAL: Gross neurological examination did not reveal any focal deficits. SKIN: Erythema noted right groin Assessment and plan New onset atrial fibrillation with rapid ventricle response Non-ST elevated IN status postcardiac catheterization nonocclusive coronary artery disease Groin cellulitis Right colon colitis Acute kidney injury prerenal in origin Diabetes mellitus type 2 * In regards to atrial fibrillation continue rate control, continue patient on metoprolol, patient transition to Eliquis * Regards to colitis patient seen by general surgery conservative management advance diet as tolerated * Regards to right groin cellulitis, wound care consulted, continue IV antibiotics will transition to oral soon total 5-day course day 2 of 5 * Regards to coronary artery disease continue medical management including Lipitor, Eliquis, losartan, metoprolol * In regards to diabetes mellitus Accu-Cheks ACHS continue NovoLog and Levemir Objective - Vital Signs Vital signs: Vital Signs Temp 97.8 F 03/07/24 11:53 Pulse 92 03/07/24 11:53 Resp 18 03/07/24 11:53 BP 118/66 03/07/24 11:53 Pulse Ox 95 03/07/24 11:53 FiO2 Intake & Output 03/06/24 03/07/24 03/07/24 18:59 06:59 18:59 Intake Total 582.333 5 118 Balance 582.333 5 118 Intake: IV 5 5 Invasive Line 3 5 5 Intake, IV Titration 337.333 Amount Heparin Sod,Pork in 0.45% 112.333 NaCl 25,000 unit In 0.45 % NaCl 1 250ml.bag @ 9. 407 UNITS/KG/HR 10 mls/hr IV .Q24H [facility] Rx#: [id number] Sodium Chloride 0.9% 1, 225 000 ml @ 75 mls/hr IV . [id number] [facility] Rx#:[id number] Oral 240 118 Other: Voiding Method Toilet Toilet Toilet Urinal Urinal Urinal # Voids 1 # Bowel Movements 1 - Labs CBC & Chem 7: 03/07/24 06:33 03/07/24 06:33 Labs: Abnormal Lab Results - Last 24 Hours (Table) 03/06/24 03/06/24 03/06/24 Range/Units 12:42 12:42 17:01 RBC 3.41 L (4.30-5.90) m/uL Hgb 11.0 L (13.0-17.5) gm/dL Hct 31.5 L (39.0-53.0) % Plt Count 135 L (150-450) k/uL Lymphocytes # (Manual) 0.16 L (1.0-4.8) k/uL Monocytes # (Manual) 1.46 H (0-1.0) k/uL Chloride 113 H (98-107) mmol/L Carbon Dioxide 18 L (22-30) mmol/L Glucose 208 H (74-99) mg/dL POC Glucose (mg/dL) 209 H (70-110) mg/dL Calcium 7.5 L (8.4-10.2) mg/dL Total Bilirubin 1.6 H (0.2-1.3) mg/dL AST 81 H (17-59) U/L ALT 79 H (4-49) U/L Alkaline Phosphatase 141 H (38-126) U/L Total Protein 5.4 L (6.3-8.2) g/dL Albumin 2.5 L (3.5-5.0) g/dL 03/06/24 03/07/24 03/07/24 Range/Units 20:02 06:15 06:33 RBC 3.56 L (4.30-5.90) m/uL Hgb 11.0 L (13.0-17.5) gm/dL Hct 33.7 L (39.0-53.0) % Plt Count (150-450) k/uL Lymphocytes # (Manual) (1.0-4.8) k/uL Monocytes # (Manual) (0-1.0) k/uL Chloride (98-107) mmol/L Carbon Dioxide (22-30) mmol/L Glucose (74-99) mg/dL POC Glucose (mg/dL) 188 H 196 H (70-110) mg/dL Calcium (8.4-10.2) mg/dL Total Bilirubin (0.2-1.3) mg/dL AST (17-59) U/L ALT (4-49) U/L Alkaline Phosphatase (38-126) U/L Total Protein (6.3-8.2) g/dL Albumin (3.5-5.0) g/dL 03/07/24 03/07/24 Range/Units 06:33 11:55 RBC (4.30-5.90) m/uL Hgb (13.0-17.5) gm/dL Hct (39.0-53.0) % Plt Count (150-450) k/uL Lymphocytes # (Manual) (1.0-4.8) k/uL Monocytes # (Manual) (0-1.0) k/uL Chloride 111 H (98-107) mmol/L Carbon Dioxide 19 L (22-30) mmol/L Glucose 177 H (74-99) mg/dL POC Glucose (mg/dL) 208 H (70-110) mg/dL Calcium 7.9 L (8.4-10.2) mg/dL Total Bilirubin (0.2-1.3) mg/dL AST (17-59) U/L ALT (4-49) U/L Alkaline Phosphatase (38-126) U/L Total Protein (6.3-8.2) g/dL Albumin (3.5-5.0) g/dL
--- NOTE | 2024-03-07 14:35 | P.PN ---
Subjective Progress Note Date: 03/07/24 This is a 73-year-old female whom I see in the office on a regular basis. I have seen this patient for his multiple medical problems including diabetes, hypertension, and history of mycosis fungoides. Patient also sees Dr. Kyle on a regular basis, and he sees the awning spreader and the naval gunfire spotter also on a regular basis. Patient was transferred yesterday from [facility], apparently he presented to the hospital with weakness, fatigue, some vague chest discomfort and abdominal discomfort. Patient has not been eating and drinking much for the last few days, and he was felt to be dehydrated. Underwent further investigation at [facility], and his EKG showed atrial fibrillation with RVR. Patient was given Cardizem bolus and placed on Cardizem drip, and he converted to sinus rhythm. Troponins were noted to be elevated, hence arrangements were made to transfer the patient to [facility]. Patient was supposed to go to 3 . however he was admitted to the ICU as an overflow. I saw this patient today, and I have known this patient for many years. He is he feels generally weak, has some vague abdominal discomfort and chest discomfort. Does not seem to be in any distress. Patient is receiving:, He is on room air, receiving fluids in the form of 0.9 normal saline at 125 cc/h, he has some vague abdominal discomfort and abdominal ultrasound is pending. Patient was seen by cardiology and The patient on heparin for now because of his elevated troponin. Patient had no previous documented history of atrial fibrillation, and no history of underlying coronary artery disease. EKG on admission showed sinus rhythm, nonspecific ST changes in the lateral leads. Labs this morning show WBC count of 3.3 hemoglobin 11.1 basic metabolic profile is normal bicarb is a bit low at 16 anion gap is normal BUN is 28 creatinine 1.13, troponin this morning is trending down to 0.[address] of the chest showed some pulmonary vascular prominence and small bilateral pleural effusions Patient was today on 03/04/2024, patient is feeling much better today, relatively asymptomatic, he is in sinus rhythm, he is hemodynamically stable, not in any distress, patient is on room air. Patient continues to have some vague abdominal discomfort, CT of the chest question colitis, however patient has been up-to-date on his colonoscopies and his last colonoscopy was in [address] Holt, and this showed mostly diverticular disease and hemorrhoids. Patient denies any nausea or vomiting, denies any diarrhea, I believe the findings on the CT of the abdomen and pelvis are nonspecific. Patient does have a nonocclusive renal calculus, could be addressed on outpatient basis by urology. WBC count is 3.9 hemoglobin is 11. His troponin has been trending down to 0.867 blood sugar is 282 today. Patient was seen by cardiology today, and is scheduled to undergo cardiac catheterization tomorrow Reevaluate today on 03/05/2024, patient is doing well, asymptomatic, denies any shortness of breath cough wheezing denies any chest pain. Apparently the patien t had also a brief run earlier of atrial fibrillation, he remains on IV heparin, otherwise he is in sinus rhythm most of the time. Cardiac catheterization was done today, there was minimal to moderate coronary artery disease, no need for intervention, the recommendation is medical therapy. Labs today were all reviewed including his basic metabolic profile and renal profile they seem to be relatively normal. The patient is seen today March 06, 2024 in follow-up on the selective care unit. He is currently laying flat in bed. Awake and alert in no acute distress. He is maintaining good O2 saturations in the 90s on room air. He is afebrile. Hemodynamically stable. White count 5.2. Hemoglobin 11.0. Platelets 135. Sodium 140. Potassium 4.0. Bicarb 18. BUN 18. Creatinine 0.87. Glucose 208. AST 81. ALT 79. Alk phos 141. He is continued on bronchodilators. Remains on IV diuretics. Anticoagulated with Eliquis. The patient is seen today March 07, 2024 in follow-up on the selective care unit. He is currently awake and alert in no acute distress. Resting quite comfortably in bed. Maintaining O2 saturations in the 90s on room air. He denies any worsening shortness of breath, cough or congestion. No chest pain or palpitations. White count 6.3. Hemoglobin 11.0. Platelets 192. Sodium 141. Potassium 3.7. Bicarb 19. BUN 19. Creatinine 0.85. Glucose 177. He is continued on bronchodilators. Continued on IV diuretics. Anticoagulated with Eliquis. Remains on cefazolin for the right groin cellulitis. Objective - Vital Signs Vital signs: Vital Signs Temp 97.8 F 03/07/24 11:53 Pulse 92 03/07/24 11:53 Resp 18 03/07/24 11:53 BP 118/66 03/07/24 11:53 Pulse Ox 95 03/07/24 11:53 FiO2 Intake & Output 03/06/24 03/07/24 03/07/24 18:59 06:59 18:59 Intake Total 582.333 5 223 Balance 582.333 5 223 Intake: IV 5 5 5 Invasive Line 3 5 5 5 Intake, IV Titration 337.333 100 Amount Heparin Sod,Pork in 0.45% 112.333 NaCl 25,000 unit In 0.45 % NaCl 1 250ml.bag @ 9. 407 UNITS/KG/HR 10 mls/hr IV .Q24H [facility] Rx#: [id number] Sodium Chloride 0.9% 1, 225 000 ml @ 75 mls/hr IV . [id number] [facility] Rx#:[id number] ceFAZolin 2 gm In Sodium 100 Chloride 0.9% 50 ml @ 100 mls/hr IVPB Q8H [facility] Rx#: [id number] Oral 240 118 Other: Voiding Method Toilet Toilet Toilet Urinal Urinal Urinal # Voids 1 1 # Bowel Movements 1 - Exam General: Reveals 73-year-old male in no distress, on room air, resting comfortably in bed. Skin: Multiple dry scaly lesions noted in the face and in the lower extremities. Eye: Pupils are equal, round and reactive to light, extra-ocular movements are intact; there is normal conjunctiva bilaterally. Ears, nose, mouth and throat: There are moist mucous membranes and no oral lesions. Neck: The neck is supple, there is no tenderness or JVD. Cardiovascular: There is a regular rate and rhythm. No murmur, rub or gallop is appreciated. Respiratory: Clear bilaterally no rhonchi no wheezes Gastrointestinal: Soft, non-distended, non-tender abdomen without masses or organomegaly noted. There is no rebound or guarding present. Bowel sounds are unremarkable. Musculoskeletal: Cellulitis of the right groin. No deformities and no limitation range of motion Neurological: Alert and oriented x 3 no gross focal deficit. Psychiatric: Cooperative, appropriate mood & affect, normal judgment. - Labs CBC & Chem 7: 03/07/24 06:33 03/07/24 06:33 Labs: Abnormal Lab Results - Last 24 Hours (Table) 03/06/24 03/06/24 03/07/24 Range/Units 17:01 20:02 06:15 RBC (4.30-5.90) m/uL Hgb (13.0-17.5) gm/dL Hct (39.0-53.0) % Chloride (98-107) mmol/L Carbon Dioxide (22-30) mmol/L Glucose (74-99) mg/dL POC Glucose (mg/dL) 209 H 188 H 196 H (70-110) mg/dL Calcium (8.4-10.2) mg/dL 03/07/24 03/07/24 03/07/24 Range/Units 06:33 06:33 11:55 RBC 3.56 L (4.30-5.90) m/uL Hgb 11.0 L (13.0-17.5) gm/dL Hct 33.7 L (39.0-53.0) % Chloride 111 H (98-107) mmol/L Carbon Dioxide 19 L (22-30) mmol/L Glucose 177 H (74-99) mg/dL POC Glucose (mg/dL) 208 H (70-110) mg/dL Calcium 7.9 L (8.4-10.2) mg/dL Assessment and Plan Assessment: New onset atrial fibrillation with RVR resolved, presently in sinus rhythm Acute non-ST elevation myocardial infarction, cardiac catheterization showed minimal to moderate coronary artery disease, recommendation is medical therapy, no intervention is felt to be necessary Acute dehydration, most likely secondary to poorly controlled diabetes and decreased p.o. intake. Resolved Acute kidney injury probably related to dehydration, improving. Cellulitis of the right groin Colitis, conservative management Type 2 diabetes. Abdominal pain, chronic, current on his colonoscopy his last colonoscopy was in October 19, 2022 but this could be addressed on outpatient basis and follow-up with gastroenterology Plan: The patient was seen and evaluated He remains stable and on room air Labs and medications reviewed Remains on cefazolin for right groin cellulitis Stable from the pulmonary standpoint I have personally seen and examined the patient, performed the documentation and the assessment and plan as written. Number of minutes spent on the visit: 10.
[2024-03-07 16:57] LABS: Glucose,Whole Blood 189 mg/dL (70-110)
[2024-03-07] MEDS: INSULIN PUMP MEAL BOLUS 1 UNIT MISC MISCELLANE SCH (18:07)
[2024-03-07 20:09] LABS: Glucose,Whole Blood 210 mg/dL (70-110)
--- NOTE | 2024-03-07 20:56 | P.PN ---
Subjective Progress Note Date: 03/07/24 CHIEF COMPLAINT: Abdominal pain HISTORY OF PRESENT ILLNESS: Patient's abdominal pain has resolved. He is tolerating diet. He has had bowel movements. GI service is not planning any endoscopy. Patient reports that he is going home today. Afebrile. WBC 5.2 elevated LFTs GI service is following and recommending follow-up in the outpatient setting. Patient's status post heart catheterization yesterday with mild to moderate triple-vessel disease and they recommended medical management.. Cardiology has cleared him for discharge. PHYSICAL EXAM: VITAL SIGNS: Reviewed. GENERAL: Well-developed in no acute distress. HEENT: No sclera icterus. Extraocular movements grossly intact. Moist buccal m ucosa. Head is atraumatic, normocephalic. ABDOMEN: Soft. Nondistended. Nontender. NEUROLOGIC: Alert and oriented. Cranial nerves II through XII grossly intact. ASSESSMENT: 1. Umbilical abdominal pain resolved 2. Mild gastroenteritis or colitis. Edema in the fat surrounding the right colon which may represent a nonspecific colitis noted on CT scan 3. Elevated troponins 4. Elevated LFTs and total bilirubin 5. Hepatomegaly PLAN: -Abdominal pain resolved. Patient tolerating diet. -Patient can be discharged from surgical standpoint when medically cleared -Recommend follow-up outpatient with GI service Objective - Vital Signs Vital signs: Vital Signs Temp 97.8 F 03/07/24 15:45 Pulse 83 03/07/24 15:45 Resp 18 03/07/24 15:45 BP 154/70 03/07/24 15:45 Pulse Ox 96 03/07/24 15:45 FiO2 Intake & Output 03/07/24 03/07/24 03/08/24 06:59 18:59 06:59 Intake Total 5 346 Balance 5 346 Intake: IV 5 10 Invasive Line 3 5 10 Intake, IV Titration 100 Amount ceFAZolin 2 gm In Sodium 100 Chloride 0.9% 50 ml @ 100 mls/hr IVPB Q8H [facility] Rx#: [id number] Oral 236 Other: Voiding Method Toilet Toilet Urinal Urinal # Voids 1 1 # Bowel Movements 1 - Labs CBC & Chem 7: 03/07/24 06:33 03/07/24 06:33 Labs: Abnormal Lab Results - Last 24 Hours (Table) 03/07/24 03/07/24 03/07/24 Range/Units 06:15 06:33 06:33 RBC 3.56 L (4.30-5.90) m/uL Hgb 11.0 L (13.0-17.5) gm/dL Hct 33.7 L (39.0-53.0) % Chloride 111 H (98-107) mmol/L Carbon Dioxide 19 L (22-30) mmol/L Glucose 177 H (74-99) mg/dL POC Glucose (mg/dL) 196 H (70-110) mg/dL Calcium 7.9 L (8.4-10.2) mg/dL 03/07/24 03/07/24 03/07/24 Range/Units 11:55 16:55 20:07 RBC (4.30-5.90) m/uL Hgb (13.0-17.5) gm/dL Hct (39.0-53.0) % Chloride (98-107) mmol/L Carbon Dioxide (22-30) mmol/L Glucose (74-99) mg/dL POC Glucose (mg/dL) 208 H 189 H 210 H (70-110) mg/dL Calcium (8.4-10.2) mg/dL
[2024-03-08 02:05] LABS: Glucose,Whole Blood 224 mg/dL (70-110)
[2024-03-08 06:05] LABS: Glucose,Whole Blood 218 mg/dL (70-110)
[2024-03-08 07:44] VITALS: RESP 16
--- NOTE | 2024-03-08 09:14 | P.PN ---
Subjective Progress Note Date: 03/08/24 Patient feels better today. He wishes to go home. On exam vital signs appear stable. Abdomen soft. Resolving colitis. Patient stable for discharge. The office outpatient. Objective - Vital Signs Vital signs: Vital Signs Temp 97.6 F 03/08/24 07:39 Pulse 78 03/08/24 07:39 Resp 16 03/08/24 07:39 BP 127/61 03/08/24 07:39 Pulse Ox 95 03/08/24 07:39 FiO2 Intake & Output 03/07/24 03/08/24 03/08/24 18:59 06:59 18:59 Intake Total 346 Balance 346 Weight 103.1 kg Intake: IV 10 Invasive Line 3 10 Intake, IV Titration 100 Amount ceFAZolin 2 gm In Sodium 100 Chloride 0.9% 50 ml @ 100 mls/hr IVPB Q8H [facility] Rx#: [id number] Oral 236 Other: Voiding Method Toilet Toilet Toilet Urinal Urinal Urinal # Voids 1 3 # Bowel Movements 1 - Labs CBC & Chem 7: 03/07/24 06:33 03/07/24 06:33 Labs: Abnormal Lab Results - Last 24 Hours (Table) 03/07/24 03/07/24 03/07/24 Range/Units 11:55 16:55 20:07 POC Glucose (mg/dL) 208 H 189 H 210 H (70-110) mg/dL 03/08/24 03/08/24 Range/Units 02:02 06:03 POC Glucose (mg/dL) 224 H 218 H (70-110) mg/dL
[2024-03-08] MEDS: CEFDINIR 300 MG CAP PO SCH (11:06)
[2024-03-08 11:38] VITALS: BP 131/74; PULSE 80; TEMP 98
[2024-03-08 11:40] LABS: Glucose,Whole Blood 266 mg/dL (70-110)
--- NOTE | 2024-03-08 11:49 | P.PN ---
Subjective Progress Note Date: 03/08/24 * 73-year-old female multiple medical problems including diabetes, hypertension, and history of mycosis fungoides. Patient also sees Dr. Kyle on a regular basis, and he sees the manager six sigma and the laborer heading also on a regular basis. * Patient was transferred from [facility], apparently he presented to the hospital with weakness, fatigue, some vague chest discomfort and abdominal discomfort. Underwent further investigation at [facility], and his EKG showed atrial fibrillation with RVR. Patient was given Cardizem bolus and placed on Cardizem drip, and he converted to sinus rhythm. Troponins were noted to be elevated, hence arrangements were made to transfer the patient to [facility]. * Patient was seen by cardiology did on on heparin for now because of his elevated troponin. * EKG on admission showed sinus rhythm, nonspecific ST changes in the lateral leads. * On admission WBC count of 3.3 hemoglobin 11.1 basic metabolic profile is normal bicarb is a bit low at 16 anion gap is normal BUN is 28 creatinine 1.13, troponin this morning is trending down to 0.86 from 1.79 * CT of the chest showed some pulmonary vascular prominence and small bilateral pleural effusions * 03/04/2024, Patient continues to have some vague abdominal discomfort, CT of the chest question colitis, however patient has been up-to-date on his colonoscopies and his last colonoscopy was in [address] Holt, and this showed mostly diverticular disease and hemorrhoids. * 03/05/2024, patient had also a brief run earlier of atrial fibrillation, remains on IV heparin, Cardiac catheterization there was minimal to moderate coronary artery disease, no need for intervention recommendation is medical therapy. * 03/06/24 Dr Palmer resumed care : Patient has been rate controlled heart rate in 70s, transition to oral Eliquis seen by cardiology. Blood work trend reviewed, vitals reviewed * 03/07/2024: Patient seen and evaluated bedside. On evaluation patient is awake and alert, right groin reviewed. Continue antibiotic. Continue IV Lasix * 03/08/24: Patient seen and evaluated at bedside, patient does complain of generalized weakness however eager to go home. Patient explained we will need physical therapy evaluation for discharge disposition patient is home by himself since is hospitalized as well. Does have significant lower extremity edema, continue with IV Lasix upon discharge will transition to oral Lasix. Patient was receiving IV antibiotics transition to oral for right groin cellulitis to complete total 5-day course. Follow-up blood work ordered. Potential discharge in the next 24 hours depending clinical course. Upon discharge patient to continue oral Lasix, patient requesting discharge. Patient ambulated in hallway. Patient to be discharged home he states he does have a walker at home. Prescription for antibiotic provided. All questions answered. Patient ambulated with nursing staff in the hallway without difficulty PHYSICAL EXAMINATION: GENERAL: The patient is alert and oriented x3, not in any acute distress. Well developed, well nourished. HEENT: Pupils are round and equally reacting to light. EOMI. CARDIOVASCULAR: S1 and S2 present. No murmurs, rubs, or gallops. PULMONARY: Chest is clear to auscultation, no wheezing or crackles. ABDOMEN: Soft, nontender, nondistended, normoactive bowel sounds. No palpable organomegaly. MUSCULOSKELETAL: No joint swelling or deformity. EXTREMITIES: Lower extremity edema noted NEUROLOGICAL: Gross neurological examination did not reveal any focal deficits. SKIN: Erythema noted right groin Assessment and plan New onset atrial fibrillation with rapid ventricle response Non-ST elevated [place] status postcardiac catheterization nonocclusive coronary artery disease Right Groin cellulitis Right colon colitis Acute kidney injury prerenal in origin Diabetes mellitus type 2 * In regards to atrial fibrillation continue rate control, continue patient on metoprolol, patient transition to Eliquis * Regards to colitis patient seen by general surgery conservative management advance diet as tolerated, cleared for discharge from surgery standpoint * Regards to right groin cellulitis, wound care consulted, was on IV antibiotics transition to oral cefdinir total 5-day course * Regards to coronary artery disease continue medical management including Lipitor, Eliquis, losartan, metoprolol * In regards to diabetes mellitus Accu-Cheks ACHS, continue insulin pump * Discharged home with home care Objective - Vital Signs Vital signs: Vital Signs Temp 97.6 F 03/08/24 07:39 Pulse 78 03/08/24 07:39 Resp 16 03/08/24 07:39 BP 127/61 03/08/24 07:39 Pulse Ox 95 03/08/24 07:39 FiO2 Intake & Output 03/07/24 03/08/2403/08/24 18:59 06:59 18:59 Intake Total 346 Balance 346 Weight 103.1 kg Intake: IV 10 Invasive Line 3 10 Intake, IV Titration 100 Amount ceFAZolin 2 gm In Sodium 100 Chloride 0.9% 50 ml @ 100 mls/hr IVPB Q8H [facility] Rx#: [id number] Oral 236 Other: Voiding Method Toilet Toilet Toilet Urinal Urinal Urinal # Voids 1 3 # Bowel Movements 1 - Labs CBC & Chem 7: 03/07/24 06:33 03/07/24 06:33 Labs: Abnormal Lab Results - Last 24 Hours (Table) 03/07/24 03/07/24 03/07/24 Range/Units 11:55 16:55 20:07 POC Glucose (mg/dL) 208 H 189 H 210 H (70-110) mg/dL 03/08/24 03/08/24 Range/Units 02:02 06:03 POC Glucose (mg/dL) 224 H 218 H (70-110) mg/dL
--- NOTE | 2024-03-08 11:50 | P.DS ---
Providers Date of admission: 03/02/24 17:23 Expected date of discharge: 03/08/24 Attending physician: Ferny Medrano Consults: 03/02/24 18:13 Consult Physician Routine Consulting Provider: Hardik Garibay Consult Reason/Comments: afib/rvr Do you want consulting provider notified?: Yes 03/04/24 14:12 Consult Physician Routine Consulting Provider: Emmy Kasper Consult Reason/Comments: abd pain colitis Do you want consulting provider notified?: Yes 03/04/24 14:13 Consult Physician Routine Consulting Provider: Bob Gomez Consult Reason/Comments: abd pain Do you want consulting provider notified?: Yes 03/04/24 14:15 Consult Physician Routine Consulting Provider: Emmy Kasper Consult Reason/Comments: abd pain, colitis Do you want consulting provider notified?: Yes Primary care physician: [facility] Course: * 73-year-old female multiple medical problems including diabetes, hypertension, and history of mycosis fungoides. Patient also sees Dr. Kyle on a regular basis, and he sees the bar attendant and the fiberglass boat parts finisher also on a regular basis. * Patient was transferred from [facility], apparently he presented to the hospital with weakness, fatigue, some vague chest discomfort and abdominal discomfort. Underwent further investigation at [facility], and his EKG showed atrial fibrillation with RVR. Patient was given Cardizem bolus and placed on Cardizem drip, and he converted to sinus rhythm. Troponins were noted to be elevated, hence arrangements were made to transfer the patient to [facility]. * Patient was seen by cardiology did on on heparin for now because of his elevated troponin. * EKG on admission showed sinus rhythm, nonspecific ST changes in the lateral leads. * On admission WBC count of 3.3 hemoglobin 11.1 basic metabolic profile is normal bicarb is a bit low at 16 anion gap is normal BUN is 28 creatinine 1.13, troponin this morning is trending down to 0.86 from 1.79 * CT of the chest showed some pulmonary vascular prominence and small bilateral pleural effusions * 03/04/2024, Patient continues to have some vague abdominal discomfort, CT of the chest question colitis, however patient has been up-to-date on his colonoscopies and his last colonoscopy was in [address] Boutt, and this showed mostly diverticular disease and hemorrhoids. * 03/05/2024, patient had also a brief run earlier of atrial fibrillation, remains on IV heparin, Cardiac catheterization there was minimal to moderate coronary artery disease, no need for intervention recommendation is medical therapy. * 03/06/24 Dr Palmer resumed care : Patient has been rate controlled heart rate in 70s, transition to oral Eliquis seen by cardiology. Blood work trend reviewed, vitals reviewed * 03/07/2024: Patient seen and evaluated bedside. On evaluation patient is awake and alert, right groin reviewed. Continue antibiotic. Continue IV Lasix * 03/08/24: Patient seen and evaluated at bedside, patient does complain of generalized weakness however eager to go home. Patient explained we will need physical therapy evaluation for discharge disposition patient is home by himself since is hospitalized as well. Does have significant lower extremity edema, continue with IV Lasix upon discharge will transition to oral Lasix. Patient was receiving IV antibiotics transition to oral for right groin cellulitis to complete total 5-day course. Follow-up blood work ordered. Potential discharge in the next 24 hours depending clinical course. Upon discharge patient to continue oral Lasix, patient requesting discharge. Patient ambulated in hallway. Patient to be discharged home he states he does have a walker at home. Prescription for antibiotic provided. All questions answered. Patient ambulated with nursing staff in the hallway without difficulty PHYSICAL EXAMINATION: GENERAL: The patient is alert and oriented x3, not in any acute distress. Well developed, well nourished. HEENT: Pupils are round and equally reacting to light. EOMI. CARDIOVASCULAR: S1 and S2 present. No murmurs, rubs, or gallops. PULMONARY: Chest is clear to auscultation, no wheezing or crackles. ABDOMEN: Soft, nontender, nondistended, normoactive bowel sounds. No palpable organomegaly. MUSCULOSKELETAL: No joint swelling or deformity. EXTREMITIES: Lower extremity edema noted NEUROLOGICAL: Gross neurological examination did not reveal any focal deficits. SKIN: Erythema noted right groin Assessment and plan New onset atrial fibrillation with rapid ventricle response Non-ST elevated DE status postcardiac catheterization nonocclusive coronary artery disease Right Groin cellulitis Right colon colitis Acute kidney injury prerenal in origin Diabetes mellitus type 2 * In regards to atrial fibrillation continue rate control, continue patient on metoprolol, patient transition to Eliquis * Regards to colitis patient seen by general surgery conservative management advance diet as tolerated, cleared for discharge from surgery standpoint * Regards to right groin cellulitis, wound care consulted, was on IV antibiotics transition to oral cefdinir total 5-day course * Regards to coronary artery disease continue medical management including Lipitor, Eliquis, losartan, metoprolol * In regards to diabetes mellitus Accu-Cheks ACHS, continue insulin pump * Discharged home with home care Patient Condition at Discharge: Good Plan - Discharge Summary New Discharge Prescriptions: New Apixaban [Eliquis] 5 mg PO BID 30 Days #60 tab Dapagliflozin Propanediol [Farxiga] 5 mg PO DAILY 30 Days #30 tab Atorvastatin [Lipitor] 40 mg PO HS 30 Days #30 tab Cefdinir [Omnicef] 600 mg PO DAILY 5 Days #5 cap Metoprolol Succinate (ER) [Toprol XL] 50 mg PO BID 30 Days #60 tab Continue INSULIN LISPRO (For Pump) [humaLOG (For Pump)] 0.01 units SQ-PUMP CONTINUOUS Losartan Potassium 100 mg PO DAILY hydroCHLOROthiazide [Hydrodiuril] 25 mg PO DAILY Furosemide [Lasix] 20 mg PO Q2D Gabapentin [Neurontin] 300 mg PO HS Ondansetron Odt [Zofran ODT] 8 mg PO Q8HR PRN PRN Reason: Nausea Prochlorperazine [Compazine] 10 mg PO Q6H PRN PRN Reason: Nausea Discontinued Atorvastatin [Lipitor] 20 mg PO HS Metoprolol Succinate (ER) [Toprol XL] 50 mg PO DAILY Discharge Medication List INSULIN LISPRO (For Pump) [humaLOG (For Pump)] 0.01 units SQ-PUMP CONTINUOUS 10/28/20 [History] Losartan Potassium 100 mg PO DAILY 10/23/22 [History] Furosemide [Lasix] 20 mg PO Q2D 03/02/24 [History] Gabapentin [Neurontin] 300 mg PO HS 03/02/24 [History] Ondansetron Odt [Zofran ODT] 8 mg PO Q8HR PRN 03/02/24 [History] Prochlorperazine [Compazine] 10 mg PO Q6H PRN 03/02/24 [History] hydroCHLOROthiazide [Hydrodiuril] 25 mg PO DAILY 03/02/24 [History] Apixaban [Eliquis] 5 mg PO BID 30 Days #60 tab 03/08/24 [Rx] Atorvastatin [Lipitor] 40 mg PO HS 30 Days #30 tab 03/08/24 [Rx] Cefdinir [Omnicef] 600 mg PO DAILY 5 Days #5 cap 03/08/24 [Rx] Dapagliflozin Propanediol [Farxiga] 5 mg PO DAILY 30 Days #30 tab 03/08/24 [Rx] Metoprolol Succinate (ER) [Toprol XL] 50 mg PO BID 30 Days #60 tab 03/08/24 [Rx] Follow up Appointment(s)/Referral(s): [facility] [NON-STAFF] - (Must follow up with Dr. Medrano before homecare can start service.) Elia Acosta MD [Primary Care Provider] - 1-2 Days Meera Kyle MD [STAFF PHYSICIAN] - 1 Week Ferny Medrano MD [STAFF PHYSICIAN] - 03/12/24 1:00 pm Bob Gomez MD [STAFF PHYSICIAN] - 1 Week Patient Instructions/Handouts: A-fib (Atrial Fibrillation) (DC), Safe Use of Anticoagulants (DC), After Radial Heart Catheterization (GEN) Activity/Diet/Wound Care/Special Instructions: CARDIAC CATH Support your puncture site by applying firm, steady pressure whenever you cough, laugh, sneeze or bear down to have a bowel movement (2-day restriction). Watch for any excessive bruising, active bleeding, a firm knot forming under your skin, extreme tenderness and signs of infection (redness, swelling, fever). Shower daily, do not soak puncture in a tub bath, jacuzzi, pool, gu etc. for 1 week. This is to prevent risk of infection. Drink plenty of fluids the day of and day after your procedure to flush contrast dye out of your kidneys. Take all medications as directed. Never stop any new medication without your physicians OK. No driving for 2 days after procedure. 5- pound weight lifting restriction for 1 week. Low sodium/low fat diet. Activity limited until follow up appointment with your chrome tanning drum operator. In case of any problems, please call [facility] [place] @ Eliquis Warning signs of GI Bleeding: Black or tarry colored stools Bright red blood from rectum Bright red or dark blood mixed with stool Bright red vomit Vomit that looks like coffee grounds Signs that also may occur are dizziness, faintness, paleness, shortness of breath, weakness and overall feeling of fatigue. Discharge Disposition: HOME WITH HOME HEALTH SERVICES
--- NOTE | 2024-03-08 12:12 | P.PN ---
Subjective Progress Note Date: 03/08/24 Principal diagnosis: Paroxysmal atrial fibrillation The patient is a pleasant 73-year-old gentleman with coronary artery disease and paroxysmal atrial fibrillation as well as hypertension and dyslipidemia was admitted to the hospital with generalized weakness and fatigue and he was diagnosed with acute coronary syndrome. He also was noted to be in and out atrial fibrillation which is new. He underwent a heart catheterization which revealed mild to moderate nonobstructive coronary artery disease. The echo shows normal LV systolic function with LVOT gradient. March 07, 2024 The patient was seen and evaluated this morning. Overall he is feeling better. He was noted to have edema in the lower extremities yesterday and he was started on Lasix IV. Overall he is feeling better. The weakness has improved. No pain in the chest and no shortness of breath. He is on oral anticoagulation. The examination revealed at least moderate bilateral lower extremities edema with regular rate and rhythm and clear breathing sounds bilaterally March 08, 2024 The patient was seen and evaluated this morning but he is doing well. He is asymptomatic. He is hemodynamically stable. The edema and shortness of breath have improved. I am going to DC the Lasix IV and start the patient on oral Lasix and continue the rest of the current medical regimen including oral anticoagulation and the patient can be discharged home later on today. The examination revealed regular rhythm with clear breathing sounds bilaterally and no edema was noted in the lower extremities Assessment Coronary artery disease nonobstructive on recent heart catheterization Preserved LV systolic function Paroxysmal atrial fibrillation Bilateral lower extremities edema Multiple comorbid conditions Plan Continue the current medical regimen DC Lasix IV and start the patient on oral Lasix The patient can be discharged Objective - Vital Signs Vital signs: Vital Signs Temp 98.0 F 03/08/24 11:11 Pulse 80 03/08/24 11:11 Resp 16 03/08/24 11:11 BP 131/74 03/08/24 11:11 Pulse Ox 97 03/08/24 11:11 FiO2 Intake & Output 03/07/24 03/08/24 03/08/24 18:59 06:59 18:59 Intake Total 346 120 Balance 346 120 Weight 103.1 kg Intake: IV 10 Invasive Line 3 10 Intake, IV Titration 100 Amount ceFAZolin 2 gm In Sodium 100 Chloride 0.9% 50 ml @ 100 mls/hr IVPB Q8H [facility] Rx#: [id number] Oral 236 120 Other: Voiding Method Toilet Toilet Toilet Urinal Urinal Urinal # Voids 1 3 # Bowel Movements 1 - Labs CBC & Chem 7: 03/07/24 06:33 03/07/24 06:33 Labs: Abnormal Lab Results - Last 24 Hours (Table) 03/07/24 03/07/24 03/08/24 Range/Units 16:55 20:07 02:02 POC Glucose (mg/dL) 189 H 210 H 224 H (70-110) mg/dL 03/08/24 03/08/24 Range/Units 06:03 11:39 POC Glucose (mg/dL) 218 H 266 H (70-110) mg/dL
[2024-03-08 13:10] LABS: HCT 39.9 % (39.0-53.0); HGB 12.8 gm/dL (13.0-17.5); MCH 31.1 pg (25.0-35.0); MCHC 32.2 g/dL (31.0-37.0); MCV 96.8 fL (80.0-100.0); Platelet Count 245 k/uL (150-450); RBC 4.13 m/uL (4.30-5.90); WBC 8.7 k/uL (3.8-10.6)
[2024-03-08 13:27] LABS: African American GFR (CKD) >90 (>60 ml/min/1.73 sqM); Anion Gap 11 mmol/L; Blood Urea Nitrogen 19 mg/dL (9-20); Carbon Dioxide 23 mmol/L (22-30); Chloride 106 mmol/L (98-107); Glucose 279 mg/dL (74-99); Non-African American GFR(CKD) 85 (>60 ml/min/1.73 sqM); Sodium 140 mmol/L (137-145)
--- NOTE | 2024-03-08 16:07 | P.PN ---
Subjective Progress Note Date: 03/08/24 This is a 73-year-old female whom I see in the office on a regular basis. I have seen this patient for his multiple medical problems including diabetes, hypertension, and history of mycosis fungoides. Patient also sees Dr. Kyle on a regular basis, and he sees the steam shovel operator and the command and control also on a regular basis. Patient was transferred yesterday from [facility], apparently he presented to the hospital with weakness, fatigue, some vague chest discomfort and abdominal discomfort. Patient has not been eating and drinking much for the last few days, and he was felt to be dehydrated. Underwent further investigation at [facility], and his EKG showed atrial fibrillation with RVR. Patient was given Cardizem bolus and placed on Cardizem drip, and he converted to sinus rhythm. Troponins were noted to be elevated, hence arrangements were made to transfer the patient to [facility]. Patient was supposed to go to [facility]. however he was admitted to the ICU as an overflow. I saw this patient today, and I have known this patient for many years. He is he feels generally weak, has some vague abdominal discomfort and chest discomfort. Does not seem to be in any distress. Patient is receiving:, He is on room air, receiving fluids in the form of 0.9 normal saline at 125 cc/h, he has some vague abdominal discomfort and abdominal ultrasound is pending. Patient was seen by cardiology and The patient on heparin for now because of his elevated troponin. Patient had no previous documented history of atrial fibrillation, and no history of underlying coronary artery disease. EKG on admission showed sinus rhythm, nonspecific ST changes in the lateral leads. Labs this morning show WBC count of 3.3 hemoglobin 11.1 basic metabolic profile is normal bicarb is a bit low at 16 anion gap is normal BUN is 28 creatinine 1.13, troponin this morning is trending down to 0.[address] of the chest showed some pulmonary vascular prominence and small bilateral pleural effusions Patient was today on 03/04/2024, patient is feeling much better today, relatively asymptomatic, he is in sinus rhythm, he is hemodynamically stable, not in any distress, patient is on room air. Patient continues to have some vague abdominal discomfort, CT of the chest question colitis, however patient has been up-to-date on his colonoscopies and his last colonoscopy was in [address] Holt, and this showed mostly diverticular disease and hemorrhoids. Patient denies any nausea or vomiting, denies any diarrhea, I believe the findings on the CT of the abdomen and pelvis are nonspecific. Patient does have a nonocclusive renal calculus, could be addressed on outpatient basis by urology. WBC count is 3.9 hemoglobin is 11. His troponin has been trending down to 0.867 blood sugar is 282 today. Patient was seen by cardiology today, and is scheduled to undergo cardiac catheterization tomorrow Reevaluate today on 03/05/2024, patient is doing well, asymptomatic, denies any shortness of breath cough wheezing denies any chest pain. Apparently the patien t had also a brief run earlier of atrial fibrillation, he remains on IV heparin, otherwise he is in sinus rhythm most of the time. Cardiac catheterization was done today, there was minimal to moderate coronary artery disease, no need for intervention, the recommendation is medical therapy. Labs today were all reviewed including his basic metabolic profile and renal profile they seem to be relatively normal. The patient is seen today March 06, 2024 in follow-up on the selective care unit. He is currently laying flat in bed. Awake and alert in no acute distress. He is maintaining good O2 saturations in the 90s on room air. He is afebrile. Hemodynamically stable. White count 5.2. Hemoglobin 11.0. Platelets 135. Sodium 140. Potassium 4.0. Bicarb 18. BUN 18. Creatinine 0.87. Glucose 208. AST 81. ALT 79. Alk phos 141. He is continued on bronchodilators. Remains on IV diuretics. Anticoagulated with Eliquis. The patient is seen today March 07, 2024 in follow-up on the selective care unit. He is currently awake and alert in no acute distress. Resting quite comfortably in bed. Maintaining O2 saturations in the 90s on room air. He denies any worsening shortness of breath, cough or congestion. No chest pain or palpitations. White count 6.3. Hemoglobin 11.0. Platelets 192. Sodium 141. Potassium 3.7. Bicarb 19. BUN 19. Creatinine 0.85. Glucose 177. He is continued on bronchodilators. Continued on IV diuretics. Anticoagulated with Eliquis. Remains on cefazolin for the right groin cellulitis. The patient is seen today March 08, 2024 in follow-up on the selective care unit. He is awake and alert in no acute distress. Resting quite comfortably in bed. Denies any worsening shortness of breath, cough or congestion. He is maintaining good O2 saturations in the 90s on room air. Labs are reviewed. Medications are reviewed. He is anxious to go home. Objective - Vital Signs Vital signs: Vital Signs Temp 98.0 F 03/08/24 11:11 Pulse 80 03/08/24 11:11 Resp 16 03/08/24 11:11 BP 131/74 03/08/24 11:11 Pulse Ox 97 03/08/24 11:11 FiO2 Intake & Output 03/07/24 03/08/24 03/08/24 18:59 06:59 18:59 Intake Total 346 360 Balance 346 360 Weight 103.1 kg Intake: IV 10 Invasive Line 3 10 Intake, IV Titration 100 Amount ceFAZolin 2 gm In Sodium 100 Chloride 0.9% 50 ml @ 100 mls/hr IVPB Q8H [facility] Rx#: [id number] Oral 236 360 Other: Voiding Method Toilet Toilet Toilet Urinal Urinal Urinal # Voids 1 3 # Bowel Movements 1 - Exam General: Reveals a very pleasant 73-year-old male in no distress, on room air, resting comfortably in bed. Skin: Multiple dry scaly lesions noted in the face and in the lower extremities. Eye: Pupils are equal, round and reactive to light, extra-ocular movements are intact; there is normal conjunctiva bilaterally. Ears, nose, mouth and throat: There are moist mucous membranes and no oral lesions. Neck: The neck is supple, there is no tenderness or JVD. Cardiovascular: There is a regular rate and rhythm. No murmur, rub or gallop is appreciated. Respiratory: Clear bilaterally no rhonchi no wheezes Gastrointestinal: Soft, non-distended, non-tender abdomen without masses or organomegaly noted. There is no rebound or guarding present. Bowel sounds are unremarkable. Musculoskeletal: Cellulitis of the right groin. No deformities and no limitation range of motion Neurological: Alert and oriented x 3 no gross focal deficit. Psychiatric: Cooperative, appropriate mood & affect, normal judgment. - Labs CBC & Chem 7: 03/08/24 12:30 03/08/24 12:30 Labs: Abnormal Lab Results - Last 24 Hours (Table) 03/07/24 03/07/24 03/08/24 Range/Units 16:55 20:07 02:02 RBC (4.30-5.90) m/uL Hgb (13.0-17.5) gm/dL Glucose (74-99) mg/dL POC Glucose (mg/dL) 189 H 210 H 224 H (70-110) mg/dL 03/08/24 03/08/24 03/08/24 Range/Units 06:03 11:39 12:30 RBC 4.13 L (4.30-5.90) m/uL Hgb 12.8 L (13.0-17.5) gm/dL Glucose (74-99) mg/dL POC Glucose (mg/dL) 218 H 266 H (70-110) mg/dL 03/08/24 Range/Units 12:30 RBC (4.30-5.90) m/uL Hgb (13.0-17.5) gm/dL Glucose 279 H (74-99) mg/dL POC Glucose (mg/dL) (70-110) mg/dL Assessment and Plan Assessment: New onset atrial fibrillation with RVR resolved, presently in sinus rhythm Acute non-ST elevation myocardial infarction, cardiac catheterization showed minimal to moderate coronary artery disease, recommendation is medical therapy, no intervention is felt to be necessary Acute dehydration, most likely secondary to poorly controlled diabetes and decreased p.o. intake. Resolved Acute kidney injury probably related to dehydration, improving. Cellulitis of the right groin Colitis, conservative management Type 2 diabetes. Abdominal pain, chronic, current on his colonoscopy his last colonoscopy was in October 19, 2022 but this could be addressed on outpatient basis and follow-up with gastroenterology Plan: The patient was seen and evaluated He remains stable and on room air Labs and medications reviewed Cleared for discharge from the pulmonary standpoint Follow-up with Dr. Guevara in our office in 1 week I have personally seen and examined the patient, performed the documentation and the assessment and plan as written. Number of minutes spent on the visit: 10.
[2024-03-09] MEDS ORDERED: FUROSEMIDE 40 MG TAB PO SCH (09:00)
--- NOTE | 2024-03-11 15:25 | CDI ---
Documentation Clarification Form Date: 03/11/2024 03:10:07 PM From: Lindsey Sanchez RN, CCDS Phone: [phone] Admit Date: 03/02/2024 05:23:00 PM Patient Name: Carlos Cohen Visit Number: [id number] Discharge Date: 03/08/2024 03:24:00 PM ATTENTION: The Clinical Documentation Specialists (CDI) and [facility] Coding Staff appreciate your assistance in clarifying documentation. Please respond to the clarification below the line at the bottom and electronically sign. The CDI & [facility] Coding staff will review the response and follow-up if needed. Please note: Queries are made part of the Legal Health Record. If you have any questions, please contact the author of this message via ITS. Dr. Ferny Medrano The patient had abnormal lab values and recent chemotherapy. Additional clarification is requested. History/Risk factors: DM, HTN, A fib and mycosis fungoid with recent chemotherapy. Presented with weakness, fatigue and vague chest discomfort. Admitted with A fib. Clinical indicators: 03/05 Surgery consult: "He does report having chemotherapy 2 weeks ago for his skin disorder of mycosis fungoides." 03/06 Cardiology: "New onset paroxysmal atrial fibrillation. Mycosis fungoides, on chemo outpatient." 03/03 Labs: WBC 3.3, Hgb 11.1, platelets 109 03/08 Labs: WBC 8.7, Hgb 12.8, platelets 245 Treatment: Monitor daily CBC; IV 0.9 NS @125mL/hr; Please clarify if there is an additional diagnosis: [ ] Pancytopenia due to chemotherapy [ ] No additional diagnosis [ ] Other condition, please specify ____ [ ] Unable to determine MTDD
--- NOTE | 2024-03-16 07:44 | PN ---
PROGRESS NOTE Pancytopenia due to chemotherapy. DICTATION ENDS HERE. MMODL / IJN: [id number] /
== END 2024-03-08 15:24 | disposition home health service (06) | DRG 286 ==
LOC: 2SICU 17:23 → 3SCARD 03-03 22:38
PROVIDERS: ADMIT Family Medicine; ATTEND Family Medicine
PROC: B2111ZZ Fluoroscopy of Multiple Coronary Arteries using Low Osmolar Contrast (ICD-10-PCS; 2024-03-05)
PROC: 4A023N7 Measurement of Cardiac Sampling and Pressure, Left Heart, Percutaneous Approach (ICD-10-PCS; principal; 2024-03-05 08:30)
DX: I48.0 Paroxysmal atrial fibrillation (principal); D61.810 Antineoplastic chemotherapy induced pancytopenia; C84.00 Mycosis fungoides, unspecified site; I5A Non-ischemic myocardial injury (non-traumatic); N17.9 Acute kidney failure, unspecified; L03.314 Cellulitis of groin; E86.0 Dehydration; R79.89 Other specified abnormal findings of blood chemistry; I25.10 Atherosclerotic heart disease of native coronary artery without angina pectoris; N20.0 Calculus of kidney; E11.65 Type 2 diabetes mellitus with hyperglycemia; E78.5 Hyperlipidemia, unspecified; G89.29 Other chronic pain; R16.0 Hepatomegaly, not elsewhere classified; T38.6X5A Adverse effect of antigonadotrophins, antiestrogens, antiandrogens, not elsewhere classified, initial encounter; I08.1 Rheumatic disorders of both mitral and tricuspid valves; I10 Essential (primary) hypertension; I25.2 Old myocardial infarction; K52.9 Noninfective gastroenteritis and colitis, unspecified; Z79.01 Long term (current) use of anticoagulants; Z79.4 Long term (current) use of insulin; Z79.899 Other long term (current) drug therapy; Z87.442 Personal history of urinary calculi; Z87.891 Personal history of nicotine dependence; Z92.21 Personal history of antineoplastic chemotherapy; Z96.41 Presence of insulin pump (external) (internal); Z87.19 Personal history of other diseases of the digestive system; X58.XXXA Exposure to other specified factors, initial encounter
CPT/HCPCS: 71250; 74150; 76700; 80048; 80053; 81001; 83036; 83880; 84484; 84681; 85025; 85027; 85610; 85730; 93306; 93458

== ENCOUNTER → 2024-03-10 | Outpatient (CLI) | payer MEDICARE ==
--- NOTE | 2024-03-10 13:58 | CT ---
EXAMINATION TYPE: CT brain wo con CT DLP: 1181.10 mGycm, Automated exposure control for dose reduction was used. DATE OF EXAM: 03/10/2024 1:38 PM COMPARISON: . CLINICAL INDICATION:Male, 73 years old with history of R41.82 ALTERED MENTAL STATUS, UNSPECIFIED, AMS ., lethargic, confusion, recently had high sugar and was in hospital. STAT HOLD AND CALL TECHNIQUE: Brain: Axial CT images of the brain were obtained with coronal and sagittal reformats created and rev iewed. Contrast used: None. Oral contrast used: None. FINDINGS: Brain: Extra-axial spaces: No abnormal extra-axial fluid collections. Ventricular system: Minimal prominence. Periventricular low-attenuation suggesting mild chronic micro angiopathy Cerebral parenchyma: No acute intraparenchymal hemorrhage or mass effect. The cheng-white junction is well differentiated. Cerebellum: Unremarkable. Mass effect: No evidence of midline shift. Intracranial vasculature: unremarkable Soft tissues: Normal. Calvarium/osseous structures: No depressed skull fracture. Paranasal sinuses and mastoid air cells: Mild scattered paranasal sinus disease. Visualized orbits: Orbital contents are intact. IMPRESSION: No acute intracranial process. Mild age-related changes.
[2024-03-10 19:08] LABS: Basophils # (A) 0.07 X 10*3/uL (0.00-0.10); Basophils % (A) 0.9 %; Eosinophils # (A) 0.01 X 10*3/uL (0.04-0.35); Eosinophils % (A) 0.1 %; HCT 35.4 % (39.6-50.0); HGB 11.8 g/dL (13.0-17.0); Lymphocytes # (A) 1.26 X 10*3/uL (0.90-5.00); MCH 30.6 pg (27.0-32.0); MCHC 33.3 g/dL (32.0-37.0); MCV 91.9 FL (80.0-97.0); Mean Platelet Volume 11.4 FL (9.5-12.2); Monocytes # (A) 0.92 X 10*3/uL (0.20-1.00); Monocytes % (A) 11.7 %; NRBC Per 100 WBC 0.04 X 10*3/uL (0.00-0.01); Neutrophils # (A) 5.44 X 10*3/uL (1.80-7.70); Neutrophils % (A) 69.3 %; Platelet Count 255 X 10*3/uL (140-440); RBC 3.85 X 10*6/uL (4.40-5.60); RDW 14.6 % (11.5-14.5); WBC 7.86 X 10*3/uL (4.50-10.00)
[2024-03-10 20:51] LABS: ALT 78 U/L (10-49); AST 119 U/L (14-35); Albumin 3.1 g/dL (3.8-4.9); Albumin/Globulin Ratio 1.19 Ratio (1.60-3.17); Alkaline Phosphatase 202 U/L (41-126); Blood Urea Nitrogen 20.7 mg/dL (9.0-27.0); Calcium 9.8 mg/dL (8.7-10.3); Carbon Dioxide 24.6 mmol/L (21.6-31.8); Chloride 102 mmol/L (96-109); Globulin 2.6 g/dL (1.6-3.3); Glucose 130 mg/dL (70-110); Potassium 3.2 mmol/L (3.5-5.5); Sodium 141 mmol/L (135-145); T4, Free (Free Thyroxine) 1.18 ng/dL (0.80-1.80); Total Bilirubin 0.7 mg/dL (0.3-1.2); Total Protein 5.7 g/dL (6.2-8.2)
== END | disposition home or self-care (01) ==
LOC: RADCTMAIN 12:33
PROVIDERS: ATTEND Internal Medicine
DX: R41.82 Altered mental status, unspecified (principal); R53.1 Weakness
CPT/HCPCS: 36415; 70450; 80053; 83036; 84439; 84443; 85025

== ENCOUNTER → 2024-11-20 | Outpatient (CLI) | payer MEDICARE ==
[2024-11-20 15:44] LABS: ALT 52 U/L (10-49); AST 23 U/L (14-35); Albumin 4.2 g/dL (3.8-4.9); Albumin/Globulin Ratio 1.68 Ratio (1.60-3.17); Alkaline Phosphatase 129 U/L (41-126); BUN/Creat Ratio 33.56 Ratio (12.00-20.00); Blood Urea Nitrogen 30.2 mg/dL (9.0-27.0); Calcium 9.2 mg/dL (8.7-10.3); Carbon Dioxide 23.5 mmol/L (21.6-31.8); Chloride 100 mmol/L (96-109); Chol/HDL Ratio 3.08 Ratio; Globulin 2.5 g/dL (1.6-3.3); Glucose 391 mg/dL (70-110); LDL Cholesterol,Calculated 128.4 mg/dL (0.0-131.0); Potassium 4.7 mmol/L (3.5-5.5); Sodium 135 mmol/L (135-145); Total Bilirubin 0.6 mg/dL (0.3-1.2); Total Protein 6.7 g/dL (6.2-8.2)
== END | disposition home or self-care (01) ==
LOC: LABWHC1 10:32
PROVIDERS: ATTEND Internal Medicine Interventional Cardiology
DX: E78.2 Mixed hyperlipidemia (principal)
CPT/HCPCS: 36415; 80053; 80061

== ENCOUNTER 2024-11-21 15:48 | Emergency (ER) | payer MEDICARE ==
--- NOTE | 2024-11-21 16:15 | ED ---
Recheck HPI - General Chief Complaint: Recheck/Abnormal Lab/Rx Stated Complaint: cant regulate blood sugar Time Seen by Provider: 11/21/24 16:15 Source: patient, RN notes reviewed Mode of arrival: ambulatory Limitations: no limitations - History of Present Illness Initial Comments: This is a 74-year-old male with a history of type 2 diabetes on insulin and cervical neck stenosis on daily prednisone presenting to the emergency department for hyperglycemia. He states that over the past 3 to 4 days he has been having a difficult time controlling his blood sugars at home with levels ranging in the 300s to 400s. Patient has been taking 30 mg of prednisone over the past 3 months. States that he has had a minimal increase in thirst. Denies nausea, vomiting, abdominal pain, diarrhea, fevers or chills. Patient only takes insulin for control of his blood sugar and has an insulin pump. - Related Data Home Medications Medication Instructions Recorded Confirmed INSULIN LISPRO (For Pump) [humaLOG 0.01 units SQ-PUMP CONTINUOUS 10/28/20 03/02/24 (For Pump)] Losartan Potassium 100 mg PO DAILY 10/23/22 03/02/24 Furosemide [Lasix] 20 mg PO Q2D 03/02/24 03/02/24 Gabapentin [Neurontin] 300 mg PO HS 03/02/24 03/02/24 Ondansetron Odt [Zofran ODT] 8 mg PO Q8HR PRN 03/02/24 03/02/24 Prochlorperazine [Compazine] 10 mg PO Q6H PRN 03/02/24 03/02/24 hydroCHLOROthiazide [Hydrodiuril] 25 mg PO DAILY 03/02/24 03/02/24 Previous Rx's Medication Instructions Recorded Apixaban [Eliquis] 5 mg PO BID 30 Days #60 tab 03/08/24 Atorvastatin [Lipitor] 40 mg PO HS 30 Days #30 tab 03/08/24 Cefdinir [Omnicef] 600 mg PO DAILY 5 Days #5 cap 03/08/24 Dapagliflozin Propanediol [Farxiga] 5 mg PO DAILY 30 Days #30 tab 03/08/24 Metoprolol Succinate (ER) [Toprol 50 mg PO BID 30 Days #60 tab 03/08/24 XL] Allergies Allergy/AdvReac Type Severity Reaction Status Date / Time No Known Allergies Allergy Verified 11/21/24 16:08 Review of Systems ROS Statement: Those systems with pertinent positive or pertinent negative responses have been documented in the HPI. ROS Other: All systems not noted in ROS Statement are negative. Past Medical History Past Medical History: Atrial Fibrillation, Cancer, Diabetes Mellitus, Hyp erlipidemia, Hypertension Additional Past Medical History / Comment(s): aib new 03/02/24, skin ca History of Any Multi-Drug Resistant Organisms: None Reported Past Surgical History: Hernia Repair, Orthopedic Surgery Additional Past Surgical History / Comment(s): left shoulder, right knee scope Past Anesthesia/Blood Transfusion Reactions: Unable to Obtain Past Psychological History: No Psychological Hx Reported Smoking Status: Former smoker Past Alcohol Use History: None Reported Past Drug Use History: None Reported General Exam Limitations: no limitations Eye exam: Present: normal appearance, PERRL, EOMI. Absent: scleral icterus, conjunctival injection, periorbital swelling Respiratory exam: Present: normal lung sounds bilaterally. Absent: respiratory distress, wheezes, rales, rhonchi, stridor Cardiovascular Exam: Present: regular rate, normal rhythm, normal heart sounds. Absent: systolic murmur, diastolic murmur, rubs, gallop, clicks GI/Abdominal exam: Present: soft, normal bowel sounds. Absent: distended, tenderness, guarding, rebound, rigid Extremities exam: Present: normal inspection, full ROM, normal capillary refill. Absent: tenderness, pedal edema, joint swelling, calf tenderness Back exam: Present: normal inspection Course Vital Signs 11/21/24 16:08 Temperature 98.3 F Pulse Rate 91 Respiratory 18 Rate Blood Pressure 119/82 O2 Sat by Pulse 95 Oximetry Medical Decision Making - Medical Decision Making Was pt. sent in by a medical professional or institution (, PA, HAND SUTURE WINDER, urgent care, hospital, or fdc...) When possible be specific @ -No Did you speak to anyone other than the patient for history (EMS, parent, family, police, friend...)? What history was obtained from this source @ -No Did you review nursing and triage notes (agree or disagree)? Why? @ -I reviewed and agree with nursing and triage notes Were old charts reviewed (outside hosp., previous admission, EMS record, old EKG, old radiological studies, urgent care reports/EKG's, fdc records)? Report findings @ -No old charts were reviewed Differential Diagnosis (chest pain, altered mental status, abdominal pain women, abdominal pain men, vaginal bleeding, weakness, fever, dyspnea, syncope, headache, dizziness, GI bleed, back pain, seizure, CVA, palpatations, mental health, musculoskeletal)? @ -Hyperglycemia due to corticosteroid use, HHS, DKA, viral syndrome, this list is not all inclusive EKG interpreted by me (3pts min.). @ -None X-rays interpreted by me (1pt min.). @ -None done CT interpreted by me (1pt min.). @ -None done U/S interpreted by me (1pt. min.). @ -None done What testing was considered but not performed or refused? (CT, X-rays, U/S, labs)? Why? @ -None What meds were considered but not given or refused? Why? @ -None Did you discuss the management of the patient with other professionals (professionals i.e. , PA, HAND SUTURE WINDER, lab, RT, psych nurse, secondary social studies teacher, senior recruitment consultant, teacher, commissary officer, manager case management)? Give summary @ -No Was smoking cessation discussed for >3mins.? @ -No Was critical care preformed (if so, how long)? @ -No Were there social determinants of health that impacted care today? How? (Homelessness, low income, unemployed, alcoholism, drug addiction, transportation, low edu. Level, literacy, decrease access to med. care, assisted, rehab)? @ -No Was there de-escalation of care discussed even if they declined (Discuss DNR or withdrawal of care, Hospice)? DNR status @ -No What co-morbidities impacted this encounter? (DM, HTN, Smoking, COPD, CAD, Cancer, CVA, ARF, Chemo, Hep., AIDS, mental health diagnosis, sleep apnea, morbid obesity)? @ -None Was patient admitted / discharged? Hospital course, mention meds given and route, prescriptions, significant lab abnormalities, going to OR and other perti nent info. @ -Discharge. 34-year-old male presenting with hyperglycemia. On my examinati on patient is well-appearing no signs of distress. His vitals are stable. [id number] glucose remarkable for hyperglycemia of 278. Patient is provided with 500 mL fluid bolus pending labs. CBC and CMP are unremarkable. Urinalysis remarkable for 4+ glucose and trace ketones with no signs of infection. acetone is negative. Patient states that he is traveling to [place] on Saturday for a extended period to stay for 3 to 4 months and states that he has a stock shipper that he follows with in [place]. Recommend patient contact stock shipper to schedule follow-up appointment for continued blood sugar management. At this time patient's medication regimen will not be adjusted as patient does not have follow-up in this state, and patient is in agreement with this. All questions have been answered at bedside answered return parameters discussed with the patient and he is verbalized understanding. Discussed with Dr. Toledo Undiagnosed new problem with uncertain prognosis? @ -No Drug Therapy requiring intensive monitoring for toxicity (Heparin, Nitro, Insulin, Cardizem)? @ -No Were any procedures done? @ -No Diagnosis/symptom? @ -hyperglycemia secondary to corticosteroid use Acute, or Chronic, or Acute on Chronic? @ -acute Uncomplicated (without systemic symptoms) or Complicated (systemic symptoms)? @ -uncomplicated Side effects of treatment? @ -No Exacerbation, Progression, or Severe Exacerbation? @ -No Poses a threat to life or bodily function? How? (Chest pain, USA, OR, pneumonia, PE, COPD, DKA, ARF, appy, cholecystitis, CVA, Diverticulitis, Homicidal, Suicidal, threat to staff... and all critical care pts) @ -No - Lab Data Result diagrams: 11/21/24 16:45 11/21/24 16:45 Lab Results 11/21/24 11/21/24 11/21/24 Range/Units 16:44 16:45 16:45 WBC 9.3 (3.8-10.6) k/uL RBC 5.37 (4.30-5.90) m/uL Hgb 13.7 (13.0-17.5) gm/dL Hct 44.1 (39.0-53.0) % MCV 82.0 (80.0-100.0) fL MCH 25.5 (25.0-35.0) pg MCHC 31.1 (31.0-37.0) g/dL RDW 16.0 H (11.5-15.5) % Plt Count 94 L (150-450) k/uL MPV 7.7 Neutrophils % 87 % Lymphocytes % 9 % Monocytes % 3 % Eosinophils % 1 % Basophils % 0 % Neutrophils # 8.1 H (1.3-7.7) k/uL Lymphocytes # 0.8 L (1.0-4.8) k/uL Monocytes # 0.3 (0-1.0) k/uL Eosinophils # 0.1 (0-0.7) k/uL Basophils # 0.0 (0-0.2) k/uL Manual Slide Review Performed Hypochromasia Moderate Anisocytosis Slight Sodium (137-145) mmol/L Potassium (3.5-5.1) mmol/L Chloride (98-107) mmol/L Carbon Dioxide (22-30) mmol/L Anion Gap mmol/L BUN (9-20) mg/dL Creatinine (0.66-1.25) mg/dL Est GFR (CKD-EPI)AfAm (>60 ml/min/1.73 sqM) Est GFR (CKD-EPI)NonAf (>60 ml/min/1.73 sqM) Glucose (74-99) mg/dL POC Glucose (mg/dL) 278 H (70-110) mg/dL POC Glu Licensed Plumber ID Darrion Huizar Calcium (8.4-10.2) mg/dL Magnesium (1.6-2.3) mg/dL Total Bilirubin (0.2-1.3) mg/dL AST (17-59) U/L ALT (4-49) U/L Alkaline Phosphatase (38-126) U/L Total Protein (6.3-8.2) g/dL Albumin (3.5-5.0) g/dL Urine Color Colorless Urine Appearance Clear (Clear) Urine pH 6.0 (5.0-8.0) Ur Specific [place] 1.027 (1.001-1.035) Urine Protein Negative (Negative) Urine Glucose (UA) 4+ H (Negative) Urine Ketones Trace H (Negative) Urine Blood Negative (Negative) Urine Nitrite Negative (Negative) Urine Bilirubin Negative (Negative) Urine Urobilinogen <2.0 (<2.0) mg/dL Ur Leukocyte Esterase Moderate H (Negative) Urine RBC 6 H (0-5) /hpf Urine WBC 17 H (0-5) /hpf Ur Squamous Epith Cells 8 H (0-4) /hpf Hyaline Casts 1 (0-2) /lpf Acetone, Qual (Negative) 11/21/24 Range/Units 16:45 WBC (3.8-10.6) k/uL RBC (4.30-5.90) m/uL Hgb (13.0-17.5) gm/dL Hct (39.0-53.0) % MCV (80.0-100.0) fL MCH (25.0-35.0) pg MCHC (31.0-37.0) g/dL RDW (11.5-15.5) % Plt Count (150-450) k/uL MPV Neutrophils % % Lymphocytes % % Monocytes % % Eosinophils % % Basophils % % Neutrophils # (1.3-7.7) k/uL Lymphocytes # (1.0-4.8) k/uL Monocytes # (0-1.0) k/uL Eosinophils # (0-0.7) k/uL Basophils # (0-0.2) k/uL Manual Slide Review Hypochromasia Anisocytosis Sodium 136 L (137-145) mmol/L Potassium 4.8 (3.5-5.1) mmol/L Chloride 101 (98-107) mmol/L Carbon Dioxide 25 (22-30) mmol/L Anion Gap 10 mmol/L BUN 34 H (9-20) mg/dL Creatinine 0.85 (0.66-1.25) mg/dL Est GFR (CKD-EPI)AfAm >90 (>60 ml/min/1.73 sqM) Est GFR (CKD-EPI)NonAf 85 (>60 ml/min/1.73 sqM) Glucose 302 H (74-99) mg/dL POC Glucose (mg/dL) (70-110) mg/dL POC Glu Licensed Plumber ID Calcium 9.7 (8.4-10.2) mg/dL Magnesium 1.9 (1.6-2.3) mg/dL Total Bilirubin 0.8 (0.2-1.3) mg/dL AST 43 (17-59) U/L ALT 63 H (4-49) U/L Alkaline Phosphatase 121 (38-126) U/L Total Protein 7.1 (6.3-8.2) g/dL Albumin 4.4 (3.5-5.0) g/dL Urine Color Urine Appearance (Clear) Urine pH (5.0-8.0) Ur Specific [place] (1.001-1.035) Urine Protein (Negative) Urine Glucose (UA) (Negative) Urine Ketones (Negative) Urine Blood (Negative) Urine Nitrite (Negative) Urine Bilirubin (Negative) Urine Urobilinogen (<2.0) mg/dL Ur Leukocyte Esterase (Negative) Urine RBC (0-5) /hpf Urine WBC (0-5) /hpf Ur Squamous Epith Cells (0-4) /hpf Hyaline Casts (0-2) /lpf Acetone, Qual Negative (Negative) Disposition Clinical Impression: Hyperglycemia Disposition: HOME SELF-CARE Condition: Good Instructions (If sedation given, give patient instructions): Diabetic Hyperglycemia (ED) Additional Instructions: Please return to the Emergency Department if symptoms worsen or any other concerns. Is patient prescribed a controlled substance at d/c from ED?: No Referrals: None,Stated [Primary Care Provider] - 1-2 days Time of Disposition: 18:09
[2024-11-21 16:48] LABS: Glucose,Whole Blood 278 mg/dL (70-110)
[2024-11-21] MEDS: SODIUM CHLORIDE 0.9% 500 ML 500 ML IV STA (16:57)
[2024-11-21 17:10] LABS: Appearance,Urine Clear (Clear); Bilirubin,Urine Negative (Negative); Blood,Urine Negative (Negative); Color,Urine Colorless; Glucose,Urine (UA) 4+ (Negative); Hyaline Casts,Urine 1 /lpf (0-2); Ketones,Urine Trace (Negative); Leukocyte Esterase,Urine Moderate (Negative); Nitrite,Urine Negative (Negative); Protein,Urine Negative (Negative); RBC,Urine 6 /hpf (0-5); Specific Gravity,Urine 1.027 (1.001-1.035); Squamous Epithelial Cell,Urine 8 /hpf (0-4); Urobilinogen,Urine <2.0 mg/dL (<2.0); WBC,Urine 17 /hpf (0-5)
[2024-11-21 17:11] LABS: Anisocytosis Slight; Basophils % (A) 0 %; Eosinophils # (A) 0.1 k/uL (0-0.7); Eosinophils % (A) 1 %; HCT 44.1 % (39.0-53.0); HGB 13.7 gm/dL (13.0-17.5); Hypochromasia Moderate; Lymphocytes # (A) 0.8 k/uL (1.0-4.8); Lymphocytes % (A) 9 %; MCH 25.5 pg (25.0-35.0); MCHC 31.1 g/dL (31.0-37.0); Mean Platelet Volume 7.7; Monocytes # (A) 0.3 k/uL (0-1.0); Monocytes % (A) 3 %; Neutrophils # (A) 8.1 k/uL (1.3-7.7); Neutrophils % (A) 87 %; RBC 5.37 m/uL (4.30-5.90); WBC 9.3 k/uL (3.8-10.6)
[2024-11-21 17:18] LABS: ALT 63 U/L (4-49); AST 43 U/L (17-59); African American GFR (CKD) >90 (>60 ml/min/1.73 sqM); Albumin 4.4 g/dL (3.5-5.0); Alkaline Phosphatase 121 U/L (38-126); Anion Gap 10 mmol/L; Blood Urea Nitrogen 34 mg/dL (9-20); Calcium 9.7 mg/dL (8.4-10.2); Carbon Dioxide 25 mmol/L (22-30); Chloride 101 mmol/L (98-107); Glucose 302 mg/dL (74-99); Magnesium 1.9 mg/dL (1.6-2.3); Non-African American GFR(CKD) 85 (>60 ml/min/1.73 sqM); Platelet Count 94 k/uL (150-450); Potassium 4.8 mmol/L (3.5-5.1); Sodium 136 mmol/L (137-145); Total Bilirubin 0.8 mg/dL (0.2-1.3); Total Protein 7.1 g/dL (6.3-8.2)
[2024-11-21 18:21] VITALS: BP 131/89; PULSE 96; RESP 16; TEMP 98.2
== END 2024-11-21 18:17 | disposition home or self-care (01) ==
LOC: EC 15:48
DX: E11.65 Type 2 diabetes mellitus with hyperglycemia (principal); Z87.891 Personal history of nicotine dependence
CPT/HCPCS: 36415; 80053; 81001; 82009; 83735; 85025; 96360; 99284

== ENCOUNTER → 2024-11-21 | Outpatient (CLI) | payer MEDICARE ==
--- NOTE | 2024-11-21 17:20 | MR ---
INDICATION: Patient age:Male; 74 years old; Reason for study: M54.2 NECK PAIN M54.12 RADICULAR PAIN CERVICAL; [facility]. COMPARISON: None. TECHNIQUE: Multi planar, multi sequence imaging was performed of the cervical spine. No Gadolinium wa s given. FINDINGS: Alignment: The cervical vertebral bodies have preserved heights. Degenerative mild retrolisthesis of C5 on C6. Bones: Bone signal is within normal limits. Multilevel anterior osteophytosis. Cord: The spinal cord is unremarkable with regards to their signal intensity and morphology. Discs: Multilevel disc desiccation is present. C2-C3: Minimal broad-based disc bulge without significant effacement of the anterior thecal sac. Unc overtebral joint arthropathy with facet arthropathy resulting in moderate left and mild right neural foraminal stenosis. C3-C4: Mild broad-based disc bulge without significant effacement of the anterior thecal sac. Left f acet joint fusion. Uncovertebral joint hypertrophy. Moderate left neural foramen stenosis. The right neural foramen is patent. C4-C5: Broad-based disc bulge with mild effacement of the anterior thecal sac. Uncovertebral joint hy pertrophy with facet arthropathy. Severe right and moderate left neural foraminal stenosis. C5-C6: Broad-based disc bulge with mild effacement of anterior thecal sac. Uncovertebral joint hypert rophy with bilateral facet arthropathy resulting in mild to moderate left neural foraminal stenosis. The right neural foramen is patent. C6-C7: Minimal broad-based disc bulge without significant effacement of the anterior thecal sac. Bila teral facet arthropathy with mild bilateral neuroforaminal stenosis. Prominent ligamentum flavum cardenas ling along the posterior lateral aspect of the thecal sac. C7-T1: No significant disc pathology. The spinal canal is patent. No neural foraminal stenosis. Other: Mild maxillary sinus mucosal thickening. IMPRESSION: 1. No evidence for disc herniation or significant spinal canal stenosis. 2. Multilevel disc degeneration with associated osteoarthritic changes as described above. 3. Mild retrolisthesis C5 on C6. [facility], , 11/21/2024 5:18 PM
== END | disposition home or self-care (01) ==
LOC: RADMRIMAIN 14:38
PROVIDERS: ATTEND Family Medicine
DX: M50.10 Cervical disc disorder with radiculopathy, unspecified cervical region (principal); M43.12 Spondylolisthesis, cervical region; M47.22 Other spondylosis with radiculopathy, cervical region
CPT/HCPCS: 72141